=== PATIENT | male | born 1940 | race Caucasian/White ===

== ENCOUNTER 2017-07-09 20:35 | Inpatient (IN) | payer MEDICARE, OTHER ==
[2017-07-09] MEDS ORDERED: Albuterol/Ipratropium NEB.SOL* Albuterol 2.5 MG/Ipratropium 0.5 MG 3 ML ONE (20:38)
[2017-07-09] MEDS ORDERED: methylPREDNISolone 125 MG* 2 ML VIAL ONE (20:40)
[2017-07-09] MEDS ORDERED: Magnesium Sulfate 2 GM IV* 2 GM/50 ML BAG ONE (20:40)
[2017-07-09] MEDS ORDERED: Ondansetron INJ* 2 MG/ML VIAL ONE (20:42)
[2017-07-09 21:02] LABS: PCO2 Arterial 36 mmHg (35-45)
[2017-07-09 21:08] LABS: Hematocrit 41 % (42-52); Hemoglobin 13.9 g/dl (14.0-18.0); Mean Corpuscular HGB Conc 34 g/dl (31-36); Mean Corpuscular Hemoglobin 30 pg (27-31); Mean Corpuscular Volume 88 fL (80-94); Mean Platelet Volume 7 um3 (7.4-10.4); Red Blood Count 4.63 10^6/ul (4.0-5.4); Red Cell Distribution Width 15 % (10.5-15); White Blood Count 16.7 10^3/ul (3.5-10.8)
[2017-07-09] MEDS ORDERED: NS 0.9% 1000 ML* 1,000 ML IV SCH (21:15)
--- NOTE | 2017-07-09 21:16 | RAD ---
HISTORY: Shortness of breath COMPARISONS: February 16, 2016 VIEWS: 1: frontal portable view of the chest at 8:56 PM FINDINGS: LINES AND TUBES: None. CARDIOMEDIASTINAL SILHOUETTE: The cardiomediastinal silhouette is normal for portable technique. PLEURA: The costophrenic angles are sharp. No pleural abnormalities are noted. LUNG PARENCHYMA: There is hyperinflation. There are coarse reticular markings of the lung bases bilaterally ABDOMEN: The upper abdomen is clear. There is no subphrenic gas. BONES AND SOFT TISSUES: No bone or soft tissue abnormalities are noted. IMPRESSION: COPD WITH MILD FIBROTIC CHANGES.
[2017-07-09 21:24] LABS: Albumin 4.2 g/dL (3.2-5.2); BUN/Creatinine Ratio 15.3 (8-20); Calcium 9.1 mg/dL (8.6-10.3); EGFR African American 68.1 (>60); EGFR Non-African American 52.9 (>60); Globulin 2.6 g/dL (2-4); Total Protein 6.8 g/dL (6.4-8.9)
[2017-07-09 21:25] LABS: Troponin I 0.01 ng/mL (<0.04)
[2017-07-09 21:42] LABS: Potassium 3.9 mmol/L (3.5-5.0)
[2017-07-09] MEDS ORDERED: Azithromycin 500 MG IV - ED ONCE IVPB ONE ×2 (22:00)
[2017-07-09] MEDS ORDERED: cefTRIAXone VIAL(*) 1,000 MG in NS 0.9% 50 ML* 50 ML IVPB ONE (22:00)
[2017-07-09] MEDS ORDERED: Ondansetron INJ* 2 MG/ML VIAL IV ONE (22:00)
[2017-07-09] MEDS ORDERED: methylPREDNISolone 125 MG* 2 ML VIAL IV ONE (22:00)
[2017-07-09] MEDS ORDERED: Magnesium Sulfate 2 GM IV* 2 GM/50 ML BAG IV ONE (22:00)
[2017-07-09] MEDS ORDERED: cefTRIAXone VIAL(*) 1,000 MG VIAL ONE (22:17)
--- NOTE | 2017-07-09 23:37 | HP ---
H&P (Free Text) History and Physical: PCP: Bessie Han MD Date/Time: 07/09/2017 2325 CC: SOB HPI: Mr Lemus is a 77YO obese male HX DM2, COPD, HTN, HLD, CAD/stent, & mod/ sev mitral regurgitation presenting with increased upper airway congestion this AM with development of F/C, rigors, & SOB around 1500 worsening to severe prompting ED evaluation. He denies chest pain, palpitations, N/V, abdominal pain , and sick contacts. There has been no change in sputum color. PMedHx CAD/stent mod/sev MR, awaiting valve replacement w/ Dr Larson at [facility] DM2 COPD HTN HLD chronic LBP HX alcoholism Ambulatory Orders Nursing to reconcile. Aspirin EC Low Dose* [Ecotrin EC Low Dose 81 MG*] 81 mg PO QAM 10/03/12 Budesonide/Formote 160/4.5(NF) [Symbicort 160/4.5 (NF)] 2 puff PO BID 10/03/12 Insulin Lispro [Humalog Kwikpen] 20 - 25 unit SUBCUT TID MDD patient uses sliding scale 08/24/13 Rosuvastatin Calcium [Crestor] 10 mg PO QPM 08/24/13 [place]-3 Fatty Acids [Fish Oil Extra Strength 1200 mg] 2,000 mg PO DAILY Centrum Silver 1 tab PO DAILY 12/12/15 Albuterol inh POWDER (NF) [Proair Respiclick] 108 mcg IN Q4HR PRN 01/12/16 Insulin GLARGINE(*) [Lantus(*)] 40 units SUBCUT TID 04/12/17 [place] (Serenoa Repens) [Saw [place] Berries] 1 cap PO DAILY 04/12/17 Magnesium 250 mg PO DAILY 04/13/17 Potassium Chloride [Micro-K] 10 meq PO DAILY 04/13/17 Rivaroxaban TAB(*) [Xarelto 20 mg] 20 mg PO BEDTIME 04/13/17 Nitroglycerin [Nitro-Dur] 0.2 mg TD Q12HR 05/04/17 Amiodarone TAB* [Cordarone Tab*] 200 mg PO BID #60 tab 05/05/17 Atenolol TAB* [Tenormin TAB* 25 MG] 25 mg PO DAILY #60 05/05/17 Torsemide TAB* [Demadex 20 MG*] 10 mg PO DAILY PRN #60 05/05/17 Allergies No Known Allergies Allergy (Verified 10/14/16 17:28) PSurgHx cardiac stent cholecystectomy vasectomy L-spine surgery SocHx: former smoker w/ 40+PYHX, HX alcoholism in remission, no recreational drugs; lives with his ; full code status FamHx: Mother: passed in her 80s of "bleeding problems", HX valve replacement; Father: in his 80s 2nd "blood clots" 2nd warfarin non-adherence; Siblings: CAD/CABG, valve issues ROS: as above, otherwise reviewed and all were negative vitals: Vital Signs Temp 37.9 C 07/09/17 20:50 Pulse 85 07/09/17 22:00 Resp 22 07/09/17 22:00 BP 117/36 07/09/17 22:00 Pulse Ox 99 07/09/17 22:00 Intake & Output 07/08/17 07/09/17 07/09/17 23:59 11:59 23:59 Weight 101.151 kg Constitutional: NAD, normally developed, obese elderly white male HEENM: atraumatic; sclera/conjunctiva: non-icteric/clear; hearing: clinically intact; oropharynx: clear, mucosa moist Neck: soft tissue: non-tender; thyroid: normal Pulmonary: diminished B with scant mid- to end-expiratory wheeze, fair to poor aeration, no accessory muscle use CV: RR/RR, normal S1S2, no carotid bruit, no jugular venous distention, 2+ B DP/ PT, no edema Abdominal: soft, non-distended, non-tender, no rebound/guarding/rigidity, normoactive bowel sounds, no hepatosplenomegaly or masses, no costovertebral angle tenderness Musculoskeletal: general: grossly intact; gait: stable Integumental: normal appearance and texture of exposed skin Psychiatric orientation: AA&O to PPS affect: calm mood: cooperative eye contact: fair content: reliable responses: timely insight: fair to good Testing: Lab Results 07/09/17 07/09/17 07/09/17 Range/Units 20:45 20:45 20:45 WBC 16.7 H (3.5-10.8) 10^3/ul RBC 4.63 (4.0-5.4) 10^6/ul Hgb 13.9 L (14.0-18.0) g/dl Hct 41 L (42-52) % MCV 88 (80-94) fL MCH 30 (27-31) pg MCHC 34 (31-36) g/dl RDW 15 (10.5-15) % Plt Count 228 (150-450) 10^3/ul MPV 7 L (7.4-10.4) um3 Neut % (Auto) 89.3 H (38-83) % Lymph % (Auto) 6.8 L (25-47) % [place] % (Auto) 2.5 (1-9) % Eos % (Auto) 0.7 (0-6) % Baso % (Auto) 0.7 (0-2) % Absolute Neuts (auto) 14.9 H (1.5-7.7) 10^3/ul Absolute Lymphs (auto) 1.1 (1.0-4.8) 10^3/ul Absolute Monos (auto) 0.4 (0-0.8) 10^3/ul Absolute Eos (auto) 0.1 (0-0.6) 10^3/ul Absolute Basos (auto) 0.1 (0-0.2) 10^3/ul Absolute Nucleated RBC 0.01 10^3/ul Nucleated RBC % 0.1 INR (Anticoag Therapy) 1.43 H (0.89-1.11) APTT 32.6 (26.0-36.3) seconds ABG pH 7.44 (7.35-7.45) ABG pCO2 36 (35-45) mmHg ABG pO2 154 H (80-100) mmHg ABG HCO3 25.4 (19-31) mmol/L ABG O2 Saturation 98.1 H (95-98) % ABG Base Excess 0.7 (-2.0-2.0) Sodium (133-145) mmol/L Potassium (3.5-5.0) mmol/L Chloride (101-111) mmol/L Carbon Dioxide (22-32) mmol/L Anion Gap (2-11) mmol/L BUN (6-24) mg/dL Creatinine (0.67-1.17) mg/dL Est GFR ( Amer) (>60) Est GFR (Non-Af Amer) (>60) BUN/Creatinine Ratio (8-20) Glucose (70-100) mg/dL Calcium (8.6-10.3) mg/dL Total Bilirubin (0.2-1.0) mg/dL AST (13-39) U/L ALT (7-52) U/L Alkaline Phosphatase (34-104) U/L Troponin I (<0.04) ng/mL B-Natriuretic Peptide ( - 100) pg/mL Total Protein (6.4-8.9) g/dL Albumin (3.2-5.2) g/dL Globulin (2-4) g/dL Albumin/Globulin Ratio (1-3) 07/09/17 07/09/17 Range/Units 20:45 20:45 WBC (3.5-10.8) 10^3/ul RBC (4.0-5.4) 10^6/ul Hgb (14.0-18.0) g/dl Hct (42-52) % MCV (80-94) fL MCH (27-31) pg MCHC (31-36) g/dl RDW (10.5-15) % Plt Count (150-450) 10^3/ul MPV (7.4-10.4) um3 Neut % (Auto) (38-83) % Lymph % (Auto) (25-47) % [place] % (Auto) (1-9) % Eos % (Auto) (0-6) % Baso % (Auto) (0-2) % Absolute Neuts (auto) (1.5-7.7) 10^3/ul Absolute Lymphs (auto) (1.0-4.8) 10^3/ul Absolute Monos (auto) (0-0.8) 10^3/ul Absolute Eos (auto) (0-0.6) 10^3/ul Absolute Basos (auto) (0-0.2) 10^3/ul Absolute Nucleated RBC 10^3/ul Nucleated RBC % INR (Anticoag Therapy) (0.89-1.11) APTT (26.0-36.3) seconds ABG pH (7.35-7.45) ABG pCO2 (35-45) mmHg ABG pO2 (80-100) mmHg ABG HCO3 (19-31) mmol/L ABG O2 Saturation (95-98) % ABG Base Excess (-2.0-2.0) Sodium 139 (133-145) mmol/L Potassium 3.9 (3.5-5.0) mmol/L Chloride 102 (101-111) mmol/L Carbon Dioxide 29 (22-32) mmol/L Anion Gap 8 (2-11) mmol/L BUN 20 (6-24) mg/dL Creatinine 1.31 H (0.67-1.17) mg/dL Est GFR ( Amer) 68.1 (>60) Est GFR (Non-Af Amer) 52.9 (>60) BUN/Creatinine Ratio 15.3 (8-20) Glucose 95 (70-100) mg/dL Calcium 9.1 (8.6-10.3) mg/dL Total Bilirubin 1.00 (0.2-1.0) mg/dL AST 22 (13-39) U/L ALT 24 (7-52) U/L Alkaline Phosphatase 48 (34-104) U/L Troponin I 0.01 (<0.04) ng/mL B-Natriuretic Peptide 92 ( - 100) pg/mL Total Protein 6.8 (6.4-8.9) g/dL Albumin 4.2 (3.2-5.2) g/dL Globulin 2.6 (2-4) g/dL Albumin/Globulin Ratio 1.6 (1-3) ECG, personally reviewed: AFIB rate 86, diffuse T-wave inversions; similar to comparison 05/05/2017 CXR, personally reviewed: bibasilar infiltrate vs atelectasis ECHO (05/05/2017): Conclusions: The left ventricular chamber size is normal.Suboptimal evaluation of the LV due to imaging restrictions. Overall EF probably 45-50%, closer to 50%, with a small focal area of hypokinesis at the base of the inferior wall. The aortic valve leaflets are mildly thickened. There is a trace of aortic regurgitation. There is moderate to severe mitral regurgitation. There are multiple jets including a central jet and a posterior eccentric jet. Pulmonary vein flow reversal is present in the LUPV. There is mild dilatation of the ascending aorta. There is mild dilatation of the aortic root. Impression: 77M presenting with bibasilar pneumonia & COPD exacerbation DIAGNOSIS & PLAN Primary bibasilar pneumonia : IV ceftriaxone & azithromycin : IVFs : guaifenesin : supplemental oxygen : blood & sputum CXs : Legionella & S pneumo urine antigens : check rapid influenza : supportive care COPD exacerbation : albuterol nebs : mometasone/formoterol : tiotropium : methylprednisolone IV : incentive spirometry Secondary CAD/stent : review meds once reconciled DM2 : insulin carb ratio diet : basal/bolus/correctional insulin : update A1c HTN : review meds once reconciled HLD : review meds once reconciled chronic LBP : review meds once reconciled Admission Rational: inpatient for pneumonia & COPD exacerbation not anticipated to be adequately improved w/i 48h to allow for discharge DVTp: rivaroxaban once reconciled Code Status: full HCP:
[2017-07-10 02:28] LABS: Urine Bilirubin Negative (Negative); Urine Glucose Negative (Negative); Urine Nitrite Negative (Negative)
[2017-07-10] MEDS: NS 0.9% 1000 ML* 1,000 ML IV SCH ×2 (05:34→16:31)
--- NOTE | 2017-07-10 06:01 | ED ---
Tyra Jimenez Rebecca, scribed for Kevin Benz on 07/09/17 at 2257 . Shortness of Breath - HPI Summary HPI Summary: Pt is a 77 y/o M BIBA who presents to ED c/o SOB characterized as dyspnea at rest. Sx began today at approximately 1700. En route to [facility], pt was given 1 NTG and O2. EMS tried administering ASA, but the pt was unable to chew. Sx aggravated and alleviated by nothing. Additionally c/o vomiting. En route, BG was 113 and IV access was attempted, but could not be obtained. PMHx COPD, A Fib , DM. Does not use O2 at home, though he does have a nebulizer. - History of Current Complaint Chief Complaint: EDShortnessOfBreath Hx Obtained From: Patient, EMS Onset/Duration: Lasting Hours, Still Present Dyspnea At: Rest Aggrevating Factors: Nothing Alleviating Factors: Nothing - Allergy/Home Medications Allergies/Adverse Reactions: Allergies Allergy/AdvReac Type Severity Reaction Status Date / Time No Known Allergies Allergy Verified 10/14/16 17:28 PMH/Surg Hx/FS Hx/Imm Hx Endocrine/Hematology History: Reports: Hx Diabetes - TYPE 2 Denies: Hx Anticoagulant Therapy, Hx Thyroid Disease Cardiovascular History: Reports: Hx Angina, Hx Coronary Artery Disease, Hx Hypercholesterolemia, Hx Hypertension - ON MEDS, Hx Valvular Heart Disease Denies: Hx Myocardial Infarction, Hx Pacemaker/ICD Respiratory History: Reports: Hx Chronic Obstructive Pulmonary Disease (COPD), Hx Pneumonia, Other Respiratory Problems/Disorders - COPD Denies: Hx Asthma GI History: Reports: Hx Hiatal Hernia, Other GI Disorders - fatty liver History: Denies: Hx Renal Disease Musculoskeletal History: Reports: Hx Arthritis Sensory History: Reports: Hx Contacts or Glasses Denies: Hx Hearing Aid Opthamlomology History: Reports: Hx Contacts or Glasses Neurological History: Denies: Hx Dementia, Hx Seizures Psychiatric History: Denies: Hx Panic Disorder, Hx Substance Abuse - Surgical History Surgery Procedure, Year, and Place: 2006 HERNIATED DISC RUPTURE LSP SURGERY. 1991 BROKEN LEFT SHOULDER REPAIRED HARDWARE REMOVED. 1994 GALLBLADDER. 1998 HEART STENT [place] STENT OK FOR 1.5T. 2014 LEFT KNEE REPLACEMENT Hx Anesthesia Reactions: No Infectious Disease History: No Infectious Disease History: Denies: Hx Hepatitis, Hx Human Immunodeficiency Virus (HIV), History Other Infectious Disease, Traveled Outside the [place] in Last 30 Days - Family History Known Family History: Positive: Cardiac Disease, Diabetes, Other - NEGATIVE FOR CANCER - Social History Alcohol Use: Rare Hx Substance Use: No Substance Use Type: Reports: None Hx Tobacco Use: No Smoking Status (MU): Former Smoker Type: Cigarettes Amount Used/How Often: 2 PACK/DAY Length of Time of Smoking/Using Tobacco: 45 Have You Smoked in the Last Year: No Review of Systems Positive: Shortness Of Breath Positive: Vomiting All Other Systems Reviewed And Are Negative: Yes Physical Exam - Summary Physical Exam Summary: Appearance: Well appearing, no pain distress Skin: warm, dry, reflects adequate perfusion Head/face: normal Eyes: EOMI, GRISELDA ENT: normal Neck: supple, nontender Respiratory: Bilateral decreased breath sounds with poor air entry and occasional wheezing Cardiovascular: Tachycardic, pulses symmetrical Abdomen: nontender, soft Bowel: present Musculoskeletal: normal, strength/ROM intact Neuro: normal, sensory motor intact, A&Ox3 Triage Information Reviewed: Yes Vital Signs On Initial Exam: Initial Vitals Temp Pulse Resp BP Pulse Ox 100.2 F 85 21 135/39 97 07/09/17 20:50 07/09/17 20:50 07/09/17 20:50 07/09/17 20:50 07/09/17 20:50 Vital Signs Reviewed: Yes - [place] Coma Scale Coma Scale Total: 15 Diagnostics - Vital Signs Vital Signs Temp Pulse Resp BP Pulse Ox 07/09/17 20:50 100.2 F 85 21 135/39 97 - Laboratory Result Diagrams: 07/09/17 20:45 07/09/17 20:45 Lab Statement: Any lab studies that have been ordered have been reviewed, and results considered in the medical decision making process. - Radiology CXR Xray Interpretation: Positive (See Comments) - COPD WITH MILD FIBROTIC CHANGES. ED physician reviewed radiology report and agrees. Radiology Interpretation Completed By: Radiologist - EKG 2108 Cardiac Rate: NL - 86 bpm EKG Rhythm: Atrial Fibrillation EKG Interpretation: A Fib with RBBB Course/Dx - Course Assessment/Plan: Pt is a 77 y/o M BIBA who presents to ED c/o SOB characterized as dyspnea at rest since today at approximately 1700. En route to [facility] ED, pt was given 1 NTG and O2. Additionally c/o vomiting. En route, BG was 113. PMHx COPD, A Fib, DM. Does not use O2 at home, though he does have a nebulizer. UA negative for UTI. Troponin of 0.01. CXR reveals COPD with mild fibrotic changes. EKG is A Fib with RBBB. IN the ED course, pt received Zofran, Zithromax , magnesium sulfate, Rocephin and Solu-Medrol. Discussed care of pt with Dr. Godoy who states that the EKG is RBBB with no acute changes and is not a STEMI. Discussed care of pt with Dr. Rosario at 2205 who accepts pt for admission. Pt will be admitted with Dx of COPD exacerbation, hypoxia, respiratory failure and PNA. He understands and agrees. 30 minutes of CC time. - Diagnoses Provider Diagnoses: COPD exacerbation, PNA (pneumonia), Respiratory failure, Hypoxia - Physician Notifications Discussed Care of Patient With: Myke Godoy Time Discussed With Above Provider: 20:40 Instructed by Provider To: Other - The EKG is RBBB with no acute changes and is not a STEMI. Discussed care of pt with Dr. Rosario at 2205 who accepts pt for admission. - Critical Care Time Critical Care Time: 30-74 min - 30 mintues Discharge - Discharge Plan Condition: Stable Disposition: ADMITTED TO [facility] The documentation as recorded by the Tyra chavez Rebecca accurately reflects the service I personally performed and the decisions made by , Kevin Benz.
[2017-07-10] MEDS: Albuterol 2.5 MG/3 ML NEB.SOL* (0.083%) INH SCH ×3 (06:25→20:56)
[2017-07-10] MEDS ORDERED: guaiFENesin ER TAB 600 MG ONE (06:52)
[2017-07-10] MEDS: guaiFENesin ER TAB 600 MG PO SCH ×3 (06:53→21:13)
[2017-07-10 07:07] LABS: Hematocrit 39 % (42-52); Hemoglobin 12.9 g/dl (14.0-18.0); Mean Corpuscular HGB Conc 33 g/dl (31-36); Mean Corpuscular Hemoglobin 29 pg (27-31); Mean Corpuscular Volume 87 fL (80-94); Mean Platelet Volume 7 um3 (7.4-10.4); Red Blood Count 4.43 10^6/ul (4.0-5.4); Red Cell Distribution Width 15 % (10.5-15); White Blood Count 24.6 10^3/ul (3.5-10.8)
[2017-07-10 07:08] LABS: Add Diff/Slide Review? Slide Review Added; Comments Flag Yes
[2017-07-10 07:22] LABS: BUN/Creatinine Ratio 15.4 (8-20); Calcium 8.5 mg/dL (8.6-10.3); EGFR African American 65.2 (>60); EGFR Non-African American 50.7 (>60); Potassium 4.3 mmol/L (3.5-5.0)
[2017-07-10 07:58] LABS: Immature Granulocytes 14 % (0-9); Neutrophil % 81 % (38-83); RBC Morphology Normal (Normal)
[2017-07-10] MEDS ORDERED: Aspirin EC Low Dose* 81 MG TAB.EC PO SCH (09:00)
[2017-07-10] MEDS ORDERED: Spiriva Inhaler DEVICE* 1 EACH DEVICE INH ONE (09:00)
[2017-07-10] MEDS ORDERED: Tiotropium CAP.INH* CAP.INH/18 MCG (USE ORDER SET !) INH SCH (09:00)
[2017-07-10] MEDS: Mometasone/Formoter 200/5 MDI INH SCH ×2 (10:12→21:15)
[2017-07-10] MEDS: Atenolol TAB* 25 MG PO SCH (10:15)
[2017-07-10] MEDS: Insulin LISPRO* 1 UNITS UNIT SUBCUT SCH ×7 (10:15→21:26)
[2017-07-10] MEDS: Torsemide TAB* 20 MG PO SCH (12:39)
--- NOTE | 2017-07-10 14:45 | PN ---
Subjective Date of Service: 07/10/17 Interval History: Patient states he feels much better since he came into the hospital. Patient states he has decreased SOB, patient states that his chest tightness has gone away. Patient states he has had one episode of hemoptysis. Patient denies any chest pain, Nausea, Vomiting, Diarrhea, Constipation, Changes in urine, or other new pains. Patient is on 3.5L O2 and states he was able to walk in the [place] briefly without his oxygen. Family History: Unchanged from Admission Social History: Unchanged from Admission Past Medical History: Unchanged from Admission Objective Vital Signs 07/10/17 07/10/17 07/10/17 01:00 01:30 02:00 Temperature Pulse Rate 94 98 102 Respiratory 20 23 21 Rate Blood Pressure 119/56 123/50 119/60 (mmHg) O2 Sat by Pulse 96 96 94 Oximetry 07/10/17 07/10/17 07/10/17 02:30 03:00 03:21 Temperature 100.1 F Pulse Rate 94 92 Respiratory 23 22 Rate Blood Pressure 115/56 126/51 (mmHg) O2 Sat by Pulse 94 94 Oximetry 07/10/17 07/10/17 07/10/17 03:30 03:51 06:26 Temperature 99.2 F Pulse Rate 100 93 Respiratory 20 20 20 Rate Blood Pressure 134/55 (mmHg) O2 Sat by Pulse 93 95 Oximetry 07/10/17 07/10/17 07/10/17 07:56 11:19 13:40 Temperature 98.4 F 98.0 F Pulse Rate 84 84 84 Respiratory 16 18 16 Rate Blood Pressure 127/54 116/59 (mmHg) O2 Sat by Pulse 94 96 97 Oximetry Oxygen Devices in Use Now: Nasal Cannula Appearance: Patient is a 77yo male who appears stated age and is sitting comfortably in the bed in [facility]. Eyes: No Scleral Icterus, PERRLA Ears/Nose/Mouth/Throat: NL Teeth, Lips, Gums, Mucous Membranes Moist, - - Slight erythema of the pharynx. Neck: NL Appearance and Movements; NL JVP, Trachea Midline Respiratory: Symmetrical Chest Expansion and Respiratory Effort, - - Decreased lung sounds, slight wheezes and rhonchi heard in the bilateral lung bases. Cardiovascular: - - Irregularly irregular rhythm. Grade 2/6 systolic murmur heard best the the apex. Radial, PT, DP pulses 2+ B/L. 1+ pitting edema B/L. Abdominal: NL Sounds; No Tenderness; No Distention, No Hepatosplenomegaly, - - Significant diastasis recti. Lymphatic: No Cervical Adenopathy Skin: No Rash or Ulcers, No Nodules or Sclerosis Neurological: Alert and Oriented x 3 Result Diagrams: 07/10/17 06:44 07/10/17 06:44 Additional Lab and Data: 07/09/17 07/09/17 07/09/17 20:45 20:45 20:45 WBC 16.7 H RBC 4.63 Hgb 13.9 L Hct 41 L MCV 88 MCH 30 MCHC 34 RDW 15 Plt Count 228 MPV 7 L Immature Gran % (Auto) Neut % (Auto) 89.3 H Lymph % (Auto) 6.8 L [place] % (Auto) 2.5 Eos % (Auto) 0.7 Baso % (Auto) 0.7 Absolute Neuts (auto) 14.9 H Absolute Lymphs (auto) 1.1 Absolute Monos (auto) 0.4 Absolute Eos (auto) 0.1 Absolute Basos (auto) 0.1 Absolute Nucleated RBC 0.01 Neutrophils % Band Neutrophils % Lymphocytes % Reactive Lymphs % Monocytes % Nucleated RBC % 0.1 Normal RBC Morphology INR (Anticoag Therapy) 1.43 H APTT 32.6 ABG pH 7.44 ABG pCO2 36 ABG pO2 154 H ABG HCO3 25.4 ABG O2 Saturation 98.1 H ABG Base Excess 0.7 Sodium Potassium Chloride Carbon Dioxide Anion Gap BUN Creatinine Est GFR ( Amer) Est GFR (Non-Af Amer) BUN/Creatinine Ratio Glucose POC Glucose (mg/dL) Hemoglobin A1c Calcium Total Bilirubin AST ALT Alkaline Phosphatase Troponin I B-Natriuretic Peptide Total Protein Albumin Globulin Albumin/Globulin Ratio Urine Color Urine Appearance Urine pH Ur Specific [place] Urine Protein Urine Ketones Urine Blood Urine Nitrate Urine Bilirubin Urine Urobilinogen Ur Leukocyte Esterase Urine Glucose Influenza A (Rapid) Influenza B (Rapid) 07/09/17 07/09/17 07/09/17 20:45 20:45 20:45 WBC RBC Hgb Hct MCV MCH MCHC RDW Plt Count MPV Immature Gran % (Auto) Neut % (Auto) Lymph % (Auto) [place] % (Auto) Eos % (Auto) Baso % (Auto) Absolute Neuts (auto) Absolute Lymphs (auto) Absolute Monos (auto) Absolute Eos (auto) Absolute Basos (auto) Absolute Nucleated RBC Neutrophils % Band Neutrophils % Lymphocytes % Reactive Lymphs % Monocytes % Nucleated RBC % Normal RBC Morphology INR (Anticoag Therapy) APTT ABG pH ABG pCO2 ABG pO2 ABG HCO3 ABG O2 Saturation ABG Base Excess Sodium 139 Potassium 3.9 Chloride 102 Carbon Dioxide 29 Anion Gap 8 BUN 20 Creatinine 1.31 H Est GFR ( Amer) 68.1 Est GFR (Non-Af Amer) 52.9 BUN/Creatinine Ratio 15.3 Glucose 95 POC Glucose (mg/dL) Hemoglobin A1c 5.0 Calcium 9.1 Total Bilirubin 1.00 AST 22 ALT 24 Alkaline Phosphatase 48 Troponin I 0.01 B-Natriuretic Peptide 92 Total Protein 6.8 Albumin 4.2 Globulin 2.6 Albumin/Globulin Ratio 1.6 Urine Color Urine Appearance Urine pH Ur Specific [place] Urine Protein Urine Ketones Urine Blood Urine Nitrate Urine Bilirubin Urine Urobilinogen Ur Leukocyte Esterase Urine Glucose Influenza A (Rapid) Influenza B (Rapid) 07/10/17 07/10/17 07/10/17 01:44 02:15 06:44 WBC RBC Hgb Hct MCV MCH MCHC RDW Plt Count MPV Immature Gran % (Auto) Neut % (Auto) Lymph % (Auto) [place] % (Auto) Eos % (Auto) Baso % (Auto) Absolute Neuts (auto) Absolute Lymphs (auto) Absolute Monos (auto) Absolute Eos (auto) Absolute Basos (auto) Absolute Nucleated RBC Neutrophils % Band Neutrophils % Lymphocytes % Reactive Lymphs % Monocytes % Nucleated RBC % Normal RBC Morphology INR (Anticoag Therapy) APTT ABG pH ABG pCO2 ABG pO2 ABG HCO3 ABG O2 Saturation ABG Base Excess Sodium 136 Potassium 4.3 Chloride 105 Carbon Dioxide 24 Anion Gap 7 BUN 21 Creatinine 1.36 H Est GFR ( Amer) 65.2 Est GFR (Non-Af Amer) 50.7 BUN/Creatinine Ratio 15.4 Glucose 169 H POC Glucose (mg/dL) Hemoglobin A1c Calcium 8.5 L Total Bilirubin AST ALT Alkaline Phosphatase Troponin I B-Natriuretic Peptide Total Protein Albumin Globulin Albumin/Globulin Ratio Urine Color Yellow Urine Appearance Clear Urine pH 5.0 Ur Specific [place] 1.019 Urine Protein Negative Urine Ketones Negative Urine Blood Negative Urine Nitrate Negative Urine Bilirubin Negative Urine Urobilinogen Negative Ur Leukocyte Esterase Negative Urine Glucose Negative Influenza A (Rapid) Negative Influenza B (Rapid) Negative 07/10/17 07/10/17 07/10/17 06:44 08:43 11:40 WBC 24.6 H RBC 4.43 Hgb 12.9 L Hct 39 L MCV 87 MCH 29 MCHC 33 RDW 15 Plt Count 183 MPV 7 L Immature Gran % (Auto) 14 H Neut % (Auto) 95.4 H Lymph % (Auto) 2.0 L [place] % (Auto) 2.5 Eos % (Auto) 0 Baso % (Auto) 0.1 Absolute Neuts (auto) 23.4 H Absolute Lymphs (auto) 0.5 L Absolute Monos (auto) 0.6 Absolute Eos (auto) 0 Absolute Basos (auto) 0 Absolute Nucleated RBC 0.01 Neutrophils % 81 Band Neutrophils % 14 H Lymphocytes % 2 L Reactive Lymphs % Not Reportable Monocytes % 3 Nucleated RBC % 0 Normal RBC Morphology Normal INR (Anticoag Therapy) APTT ABG pH ABG pCO2 ABG pO2 ABG HCO3 ABG O2 Saturation ABG Base Excess Sodium Potassium Chloride Carbon Dioxide Anion Gap BUN Creatinine Est GFR ( Amer) Est GFR (Non-Af Amer) BUN/Creatinine Ratio Glucose POC Glucose (mg/dL) 219 H 204 H Hemoglobin A1c Calcium Total Bilirubin AST ALT Alkaline Phosphatase Troponin I B-Natriuretic Peptide Total Protein Albumin Globulin Albumin/Globulin Ratio Urine Color Urine Appearance Urine pH Ur Specific [place] Urine Protein Urine Ketones Urine Blood Urine Nitrate Urine Bilirubin Urine Urobilinogen Ur Leukocyte Esterase Urine Glucose Influenza A (Rapid) Influenza B (Rapid) Microbiology and Other Data: Microbiology 07/10/17 03:43 Gram Stain - Final Sputum 07/10/17 02:15 Legionella Urinary Antigen - Final Urine Negative Legionella 07/10/17 02:15 Streptococcus pneumoniae Ag Screen - Final Urine Negative S. 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 Patient is admitted for ABX, Steroids, and supportive care. - Patient Problems (1) Pneumonia Current Visit: No Status: Acute Code(s): J18.9 - PNEUMONIA, UNSPECIFIED ORGANISM SNOMED Code(s): 907243768 Comment: Bilateral LL pneumonia. Responding to Ceftriaxone and Azithromycin IV. Wean O2 as tolerated. Continue with mucinex, incentive spirometry and IVF. Sputum and blood samples obtained and pending culture. (2) COPD (chronic obstructive pulmonary disease) Current Visit: Yes Status: Acute Code(s): J44.9 - CHRONIC OBSTRUCTIVE PULMONARY DISEASE, UNSPECIFIED SNOMED Code(s): 99722792 Comment: Current exacerbation. Started on Solu-Medrol, Antibiotics, Duonebs scheduled while awake and home dulera. Patient is feeling much better with improved lung exam. Will attempt to change to PO steroids tomorrow. (3) Diabetes Current Visit: No Status: Acute Code(s): E11.9 - TYPE 2 DIABETES MELLITUS WITHOUT COMPLICATIONS SNOMED Code(s): 15760933 Comment: Started on 21u Lantus as well as carb matched insulin and SSI. Blood glucose monitoring AC. Will adjust Lantus up as needed. Patient takes 40u lantus at home. (4) Atrial fibrillation Current Visit: No Status: Acute Code(s): I48.91 - UNSPECIFIED ATRIAL FIBRILLATION SNOMED Code(s): 20518478 Comment: Rate controlled with Atenolol, Anticoagulated with Xarelto. (5) HTN (hypertension) Current Visit: No Status: Acute Code(s): I10 - ESSENTIAL (PRIMARY) HYPERTENSION SNOMED Code(s): 83035845 Comment: Continue Atenolol and Torsemide. Patient normotensive. (6) Hyperlipidemia Current Visit: No Status: Acute Code(s): E78.5 - HYPERLIPIDEMIA, UNSPECIFIED SNOMED Code(s): 09967589 Comment: Continue statin. (7) DVT prophylaxis Current Visit: Yes Status: Acute Code(s): LON4889 - SNOMED Code(s): 724254171 Comment: Xarelto Status and Disposition: Patient is admitted inpatient. Will discharge when medially stable, predict 2- 3days.
[2017-07-10] MEDS: Atorvastatin* 20 MG TAB PO SCH (16:31)
[2017-07-10] MEDS ORDERED: Insulin GLARGINE(*) 1 UNITS UNIT SUBCUT SCH (21:00)
[2017-07-10] MEDS: cefTRIAXone VIAL(*) 1,000 MG in NS 0.9% 50 ML* 50 ML IVPB SCH (21:10)
[2017-07-10] MEDS: Rivaroxaban TAB(*) 20 MG TAB PO SCH (21:15)
[2017-07-10] MEDS: Azithromycin IV(*) 500 MG in NS 0.9% 250 ML* 250 ML IVPB SCH (23:41)
[2017-07-11] MEDS: Albuterol 2.5 MG/3 ML NEB.SOL* (0.083%) INH SCH ×4 (01:30→20:08)
[2017-07-11 05:56] LABS: Hematocrit 34 % (42-52); Hemoglobin 11.8 g/dl (14.0-18.0); Mean Corpuscular HGB Conc 34 g/dl (31-36); Mean Corpuscular Hemoglobin 30 pg (27-31); Mean Corpuscular Volume 88 fL (80-94); Mean Platelet Volume 8 um3 (7.4-10.4); Red Cell Distribution Width 15 % (10.5-15); White Blood Count 20.1 10^3/ul (3.5-10.8)
[2017-07-11 06:10] LABS: BUN/Creatinine Ratio 21.4 (8-20); Calcium 8.5 mg/dL (8.6-10.3); EGFR African American 71.2 (>60); EGFR Non-African American 55.4 (>60); Potassium 4.1 mmol/L (3.5-5.0)
[2017-07-11] MEDS ORDERED: methylPREDNISolone SOD 40 MG* 1 ML VIAL IV SCH (08:00)
[2017-07-11] MEDS: Mometasone/Formoter 200/5 MDI INH SCH ×2 (08:04→20:09)
[2017-07-11] MEDS: Atenolol TAB* 25 MG PO SCH (08:30)
[2017-07-11] MEDS: guaiFENesin ER TAB 600 MG PO SCH ×2 (08:31→21:34)
[2017-07-11] MEDS: Torsemide TAB* 20 MG PO SCH (08:31)
[2017-07-11] MEDS: Insulin LISPRO* 1 UNITS UNIT SUBCUT SCH ×7 (09:16→22:25)
--- NOTE | 2017-07-11 13:10 | PN ---
Subjective Date of Service: 07/11/17 Interval History: Patient is feeling much better overnight. Patient denies any increased SOB, CP, N/V, F/C, abdominal pain, diarrhea, or constipation. Patient continues to produce grossly bloody sputum. Patient states that the duoneb treatment and the Demedex both helped with the restricted feeling in his chest. Patient had an episode witnessed by nursing staff in which he "made a noise that was a combination of a hiccup and a cough" and then hung his head momentarily and made twitching movements with his arms. This lasted only a moment. Patient states that he has these episodes infrequently, but that he has had 12 over the past couple of years. They only occur when he is eating and he can usually avoid them if he eats slowly. Patient states that he has been told it is related to his hiatal hernia and that he does not want to pursue treatment for it. Family History: Unchanged from Admission Social History: Unchanged from Admission Past Medical History: Unchanged from Admission Objective Vital Signs 07/10/17 07/10/17 07/10/17 13:40 15:56 20:00 Temperature 98.2 F Pulse Rate 84 72 Respiratory 16 16 20 Rate Blood Pressure 119/49 (mmHg) O2 Sat by Pulse 97 97 Oximetry 07/10/17 07/10/17 07/11/17 20:58 21:31 00:14 Temperature 97.7 F 97.8 F Pulse Rate 87 80 80 Respiratory 18 22 18 Rate Blood Pressure 109/52 104/53 (mmHg) O2 Sat by Pulse 97 94 95 Oximetry 07/11/17 07/11/17 07/11/17 04:07 07:30 07:58 Temperature 97.9 F 97.5 F Pulse Rate 77 81 Respiratory 18 18 18 Rate Blood Pressure 114/64 122/64 (mmHg) O2 Sat by Pulse 97 96 Oximetry 07/11/17 07/11/17 08:06 11:08 Temperature 97.7 F Pulse Rate 78 83 Respiratory 14 16 Rate Blood Pressure 95/72 (mmHg) O2 Sat by Pulse 96 92 Oximetry Oxygen Devices in Use Now: None Appearance: Patient is a 77yo male who appears stated age and is sitting comfortably in the bed in [facility]. Eyes: No Scleral Icterus, PERRLA Ears/Nose/Mouth/Throat: NL Teeth, Lips, Gums, Clear Oropharnyx, Mucous Membranes Moist Neck: NL Appearance and Movements; NL JVP, Trachea Midline Respiratory: Symmetrical Chest Expansion and Respiratory Effort, - - Mildly decreased lung sounds in the bilateral lower lobes. Slight expiratory wheezes. No other adventitious lung sounds. Improved since yesterday. Cardiovascular: - - Irregularly irregular rhythm with rate 60-80 Abdominal: No Hepatosplenomegaly, - - Slightly distended, decreased from yesterday. Hyperactive BS, no tenderness, no abdominal bruits. Lymphatic: No Cervical Adenopathy Extremities: - - No calf tenderness. Skin: No Rash or Ulcers Neurological: Alert and Oriented x 3, NL Gait Result Diagrams: 07/11/17 05:13 07/11/17 05:13 Additional Lab and Data: 07/09/17 07/09/17 07/09/17 20:45 20:45 20:45 WBC 16.7 H RBC 4.63 Hgb 13.9 L Hct 41 L MCV 88 MCH 30 MCHC 34 RDW 15 Plt Count 228 MPV 7 L Immature Gran % (Auto) Neut % (Auto) 89.3 H Lymph % (Auto) 6.8 L [place] % (Auto) 2.5 Eos % (Auto) 0.7 Baso % (Auto) 0.7 Absolute Neuts (auto) 14.9 H Absolute Lymphs (auto) 1.1 Absolute Monos (auto) 0.4 Absolute Eos (auto) 0.1 Absolute Basos (auto) 0.1 Absolute Nucleated RBC 0.01 Neutrophils % Band Neutrophils % Lymphocytes % Reactive Lymphs % Monocytes % Nucleated RBC % 0.1 Normal RBC Morphology INR (Anticoag Therapy) 1.43 H APTT 32.6 ABG pH 7.44 ABG pCO2 36 ABG pO2 154 H ABG HCO3 25.4 ABG O2 Saturation 98.1 H ABG Base Excess 0.7 Sodium Potassium Chloride Carbon Dioxide Anion Gap BUN Creatinine Est GFR ( Amer) Est GFR (Non-Af Amer) BUN/Creatinine Ratio Glucose POC Glucose (mg/dL) Hemoglobin A1c Calcium Total Bilirubin AST ALT Alkaline Phosphatase Troponin I B-Natriuretic Peptide Total Protein Albumin Globulin Albumin/Globulin Ratio Urine Color Urine Appearance Urine pH Ur Specific [place] Urine Protein Urine Ketones Urine Blood Urine Nitrate Urine Bilirubin Urine Urobilinogen Ur Leukocyte Esterase Urine Glucose Influenza A (Rapid) Influenza B (Rapid) 07/09/17 07/09/17 07/09/17 20:45 20:45 20:45 WBC RBC Hgb Hct MCV MCH MCHC RDW Plt Count MPV Immature Gran % (Auto) Neut % (Auto) Lymph % (Auto) [place] % (Auto) Eos % (Auto) Baso % (Auto) Absolute Neuts (auto) Absolute Lymphs (auto) Absolute Monos (auto) Absolute Eos (auto) Absolute Basos (auto) Absolute Nucleated RBC Neutrophils % Band Neutrophils % Lymphocytes % Reactive Lymphs % Monocytes % Nucleated RBC % Normal RBC Morphology INR (Anticoag Therapy) APTT ABG pH ABG pCO2 ABG pO2 ABG HCO3 ABG O2 Saturation ABG Base Excess Sodium 139 Potassium 3.9 Chloride 102 Carbon Dioxide 29 Anion Gap 8 BUN 20 Creatinine 1.31 H Est GFR ( Amer) 68.1 Est GFR (Non-Af Amer) 52.9 BUN/Creatinine Ratio 15.3 Glucose 95 POC Glucose (mg/dL) Hemoglobin A1c 5.0 Calcium 9.1 Total Bilirubin 1.00 AST 22 ALT 24 Alkaline Phosphatase 48 Troponin I 0.01 B-Natriuretic Peptide 92 Total Protein 6.8 Albumin 4.2 Globulin 2.6 Albumin/Globulin Ratio 1.6 Urine Color Urine Appearance Urine pH Ur Specific [place] Urine Protein Urine Ketones Urine Blood Urine Nitrate Urine Bilirubin Urine Urobilinogen Ur Leukocyte Esterase Urine Glucose Influenza A (Rapid) Influenza B (Rapid) 07/10/17 07/10/17 07/10/17 01:44 02:15 06:44 WBC RBC Hgb Hct MCV MCH MCHC RDW Plt Count MPV Immature Gran % (Auto) Neut % (Auto) Lymph % (Auto) [place] % (Auto) Eos % (Auto) Baso % (Auto) Absolute Neuts (auto) Absolute Lymphs (auto) Absolute Monos (auto) Absolute Eos (auto) Absolute Basos (auto) Absolute Nucleated RBC Neutrophils % Band Neutrophils % Lymphocytes % Reactive Lymphs % Monocytes % Nucleated RBC % Normal RBC Morphology INR (Anticoag Therapy) APTT ABG pH ABG pCO2 ABG pO2 ABG HCO3 ABG O2 Saturation ABG Base Excess Sodium 136 Potassium 4.3 Chloride 105 Carbon Dioxide 24 Anion Gap 7 BUN 21 Creatinine 1.36 H Est GFR ( Amer) 65.2 Est GFR (Non-Af Amer) 50.7 BUN/Creatinine Ratio 15.4 Glucose 169 H POC Glucose (mg/dL) Hemoglobin A1c Calcium 8.5 L Total Bilirubin AST ALT Alkaline Phosphatase Troponin I B-Natriuretic Peptide Total Protein Albumin Globulin Albumin/Globulin Ratio Urine Color Yellow Urine Appearance Clear Urine pH 5.0 Ur Specific [place] 1.019 Urine Protein Negative Urine Ketones Negative Urine Blood Negative Urine Nitrate Negative Urine Bilirubin Negative Urine Urobilinogen Negative Ur Leukocyte Esterase Negative Urine Glucose Negative Influenza A (Rapid) Negative Influenza B (Rapid) Negative 07/10/17 07/10/17 07/10/17 06:44 08:43 11:40 WBC 24.6 H RBC 4.43 Hgb 12.9 L Hct 39 L MCV 87 MCH 29 MCHC 33 RDW 15 Plt Count 183 MPV 7 L Immature Gran % (Auto) 14 H Neut % (Auto) 95.4 H Lymph % (Auto) 2.0 L [place] % (Auto) 2.5 Eos % (Auto) 0 Baso % (Auto) 0.1 Absolute Neuts (auto) 23.4 H Absolute Lymphs (auto) 0.5 L Absolute Monos (auto) 0.6 Absolute Eos (auto) 0 Absolute Basos (auto) 0 Absolute Nucleated RBC 0.01 Neutrophils % 81 Band Neutrophils % 14 H Lymphocytes % 2 L Reactive Lymphs % Not Reportable Monocytes % 3 Nucleated RBC % 0 Normal RBC Morphology Normal INR (Anticoag Therapy) APTT ABG pH ABG pCO2 ABG pO2 ABG HCO3 ABG O2 Saturation ABG Base Excess Sodium Potassium Chloride Carbon Dioxide Anion Gap BUN Creatinine Est GFR ( Amer) Est GFR (Non-Af Amer) BUN/Creatinine Ratio Glucose POC Glucose (mg/dL) 219 H 204 H Hemoglobin A1c Calcium Total Bilirubin AST ALT Alkaline Phosphatase Troponin I B-Natriuretic Peptide Total Protein Albumin Globulin Albumin/Globulin Ratio Urine Color Urine Appearance Urine pH Ur Specific [place] Urine Protein Urine Ketones Urine Blood Urine Nitrate Urine Bilirubin Urine Urobilinogen Ur Leukocyte Esterase Urine Glucose Influenza A (Rapid) Influenza B (Rapid) Microbiology and Other Data: Microbiology 07/10/17 03:43 Gram Stain - Final Sputum 07/10/17 02:15 Legionella Urinary Antigen - Final Urine Negative Legionella 07/10/17 02:15 Streptococcus pneumoniae Ag Screen - Final Urine Negative S. 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 Patient is admitted for ABX, Steroids, and supportive care. - Patient Problems (1) Pneumonia Current Visit: No Status: Acute Code(s): J18.9 - PNEUMONIA, UNSPECIFIED ORGANISM SNOMED Code(s): 388220693 Comment: Bilateral LL pneumonia. Responding to Ceftriaxone and Azithromycin IV. Patient on RA. Continue with mucinex and incentive spirometry. Sputum and blood samples obtained and pending culture. Continued hemoptysis, patient on xarelto, will continue to monitor for resolution. (2) COPD (chronic obstructive pulmonary disease) Current Visit: Yes Status: Acute Code(s): J44.9 - CHRONIC OBSTRUCTIVE PULMONARY DISEASE, UNSPECIFIED SNOMED Code(s): 41392380 Comment: Current exacerbation. Antibiotics, Duonebs scheduled while awake and home dulera. Patient is feeling much better with improved lung exam. Change to PO steroids. (3) Diabetes Current Visit: No Status: Acute Code(s): E11.9 - TYPE 2 DIABETES MELLITUS WITHOUT COMPLICATIONS SNOMED Code(s): 39368536 Comment: Patient received 69 units of insulin yesterday. Increase Lantus to 40u daily. Continue ascarb matched insulin and SSI. Blood glucose monitoring AC. Will adjust Lantus up as needed. Patient takes 120u lantus at home. This is a correction from 07/11/2017 (4) Atrial fibrillation Current Visit: No Status: Acute Code(s): I48.91 - UNSPECIFIED ATRIAL FIBRILLATION SNOMED Code(s): 32069074 Comment: Rate controlled with Atenolol, Anticoagulated with Xarelto. (5) HTN (hypertension) Current Visit: No Status: Acute Code(s): I10 - ESSENTIAL (PRIMARY) HYPERTENSION SNOMED Code(s): 41323137 Comment: Continue Atenolol and Torsemide. Patient low end of normotensive. (6) Hyperlipidemia Current Visit: No Status: Acute Code(s): E78.5 - HYPERLIPIDEMIA, UNSPECIFIED SNOMED Code(s): 68157155 Comment: Continue statin. (7) DVT prophylaxis Current Visit: Yes Status: Acute Code(s): LEZ8059 - SNOMED Code(s): 232933871 Comment: Xarelto Status and Disposition: Patient is admitted inpatient. Will discharge when medially stable, predict 2- 3days.
[2017-07-11] MEDS: predniSONE TAB* 20 MG PO SCH (13:40)
[2017-07-11] MEDS: Atorvastatin* 20 MG TAB PO SCH (18:08)
[2017-07-11] MEDS: Calcium Carbonate CHEW TAB* 500 MG (TUMS) PO SCH ×3 (18:12→21:45)
[2017-07-11] MEDS: cefTRIAXone VIAL(*) 1,000 MG in NS 0.9% 50 ML* 50 ML IVPB SCH (21:34)
[2017-07-11] MEDS: Rivaroxaban TAB(*) 20 MG TAB PO SCH (21:34)
[2017-07-11] MEDS: Insulin GLARGINE(*) 1 UNITS UNIT SUBCUT SCH (22:24)
[2017-07-11] MEDS: Azithromycin IV(*) 500 MG in NS 0.9% 250 ML* 250 ML IVPB SCH (22:25)
[2017-07-12] MEDS: Albuterol/Ipratropium NEB.SOL* Albuterol 2.5 MG/Ipratropium 0.5 MG 3 ML INH SCH ×2 (00:22→00:23)
[2017-07-12] MEDS: Albuterol 2.5 MG/3 ML NEB.SOL* (0.083%) INH SCH ×2 (00:32→07:48)
[2017-07-12] MEDS: Albuterol 2.5 MG/3 ML NEB.SOL* (0.083%) INH PRN ×2 (03:40→14:43)
[2017-07-12 06:16] LABS: Hematocrit 34 % (42-52); Hemoglobin 11.6 g/dl (14.0-18.0); Mean Corpuscular HGB Conc 34 g/dl (31-36); Mean Corpuscular Hemoglobin 30 pg (27-31); Mean Corpuscular Volume 87 fL (80-94); Mean Platelet Volume 8 um3 (7.4-10.4); Red Blood Count 3.87 10^6/ul (4.0-5.4); Red Cell Distribution Width 15 % (10.5-15); White Blood Count 13.2 10^3/ul (3.5-10.8)
[2017-07-12 06:31] LABS: BUN/Creatinine Ratio 27.9 (8-20); Calcium 8.6 mg/dL (8.6-10.3); EGFR African American 73.9 (>60); EGFR Non-African American 57.4 (>60); Potassium 4.4 mmol/L (3.5-5.0)
[2017-07-12] MEDS: Torsemide TAB* 20 MG PO SCH (11:13)
[2017-07-12] MEDS: guaiFENesin ER TAB 600 MG PO SCH ×2 (11:13→21:05)
[2017-07-12] MEDS: Atenolol TAB* 25 MG PO SCH (11:13)
[2017-07-12] MEDS: predniSONE TAB* 20 MG PO SCH (11:14)
[2017-07-12] MEDS: Calcium Carbonate CHEW TAB* 500 MG (TUMS) PO SCH ×3 (11:14→21:04)
[2017-07-12] MEDS: Mometasone/Formoter 200/5 MDI INH SCH ×2 (11:14→20:45)
[2017-07-12] MEDS: Insulin LISPRO* 1 UNITS UNIT SUBCUT SCH ×7 (11:18→21:19)
[2017-07-12] MEDS ORDERED: Spiriva Inhaler DEVICE* 1 EACH DEVICE INH SCH (13:00)
[2017-07-12] MEDS ORDERED: Spiriva Inhaler DEVICE* 1 EACH DEVICE SCH (13:00)
--- NOTE | 2017-07-12 13:42 | PN ---
Subjective Date of Service: 07/12/17 Interval History: Patient seen and examined at bedside. Denies fever, chills, chest discomfort, N/ V/D. Apolinar reports increased shortness of breath today. He also reports needing to have oxygen again last night. Family History: Unchanged from Admission Social History: Unchanged from Admission Past Medical History: Unchanged from Admission Objective Vital Signs 07/11/17 07/11/17 07/11/17 13:50 15:17 15:33 Temperature 98.3 F Pulse Rate 76 88 Respiratory 14 18 Rate Blood Pressure 116/60 (mmHg) O2 Sat by Pulse 93 88 93 Oximetry 07/11/17 07/11/17 07/11/17 20:00 20:11 23:15 Temperature 97.9 F Pulse Rate 90 Respiratory 16 16 Rate Blood Pressure (mmHg) O2 Sat by Pulse 98 Oximetry 07/11/17 07/12/17 07/12/17 23:39 03:24 03:42 Temperature 97.4 F 97.4 F Pulse Rate 95 88 91 Respiratory 16 18 18 Rate Blood Pressure 135/75 129/84 (mmHg) O2 Sat by Pulse 93 93 97 Oximetry 07/12/17 07/12/17 07/12/17 07:31 07:40 09:25 Temperature 97.5 F Pulse Rate 88 88 Respiratory 17 22 17 Rate Blood Pressure 142/58 (mmHg) O2 Sat by Pulse 94 94 Oximetry 07/12/17 07/12/17 09:26 11:22 Temperature 97.6 F Pulse Rate 92 Respiratory 22 Rate Blood Pressure 148/72 (mmHg) O2 Sat by Pulse 94 94 Oximetry Oxygen Devices in Use Now: None Appearance: NAD, sitting up in bed Ears/Nose/Mouth/Throat: Mucous Membranes Moist Respiratory: Symmetrical Chest Expansion and Respiratory Effort, Clear to Auscultation - , diminished Cardiovascular: NL Sounds; No Murmurs; No JVD, RRR Abdominal: NL Sounds; No Tenderness; No Distention Extremities: No Edema Skin: No Rash or Ulcers Neurological: Alert and Oriented x 3, NL Muscle Strength and Tone Lines/Tubes/Other Access: Clean, Dry and Intact Peripheral IV - site benign Nutrition: Taking PO's Result Diagrams: 07/12/17 05:53 07/12/17 05:53 Additional Lab and Data: Microbiology and Other Data: Microbiology 07/10/17 03:43 Gram Stain - Final Sputum 07/10/17 02:15 Legionella Urinary Antigen - Final Urine Negative Legionella 07/10/17 02:15 Streptococcus pneumoniae Ag Screen - Final Urine Negative S. pneumo Antigen 07/10/17 01:40 Influenza Types A,B Antigen (JAY JAY) - Final Nasopharyngeal Specimen received for Influenza A/B Molecular testing Assess/Plan/Problems-Billing Assessment: Mr. 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 Patient is admitted for ABX, Steroids, and supportive care. - Patient Problems (1) Pneumonia Code(s): J18.9 - PNEUMONIA, UNSPECIFIED ORGANISM SNOMED Code(s): 879949703 Comment: - Bilateral LL pneumonia. - Leukocytosis improving and afebrile. - Continue with mucinex and incentive spirometry. - Sputum culture with Yeast, and blood cultures with no growth, day 1. - Urine antigens for Legionella and S. Penumo negative. - Continued hemoptysis, patient on xarelto, will continue to monitor for resolution. - Ceftriaxone and Azithromycin IV. (2) COPD (chronic obstructive pulmonary disease) Code(s): J44.9 - CHRONIC OBSTRUCTIVE PULMONARY DISEASE, UNSPECIFIED SNOMED Code(s): 54181677 Comment: - Current exacerbation. - Continue antibiotics, duonebs scheduled while awake, steroids, and home dulera. (3) Diabetes Code(s): E11.9 - TYPE 2 DIABETES MELLITUS WITHOUT COMPLICATIONS SNOMED Code(s) : 29795223 Comment: - Glucose 200-300s. - Blood glucose monitoring AC. - Continue Lantus (increased to BID), carb counting, and Lispro SSI. (4) HTN (hypertension) Code(s): I10 - ESSENTIAL (PRIMARY) HYPERTENSION SNOMED Code(s): 15213490 Comment: - SBPs 110-140's. - Continue Atenolol and Torsemide. (5) Hyperlipidemia Code(s): E78.5 - HYPERLIPIDEMIA, UNSPECIFIED SNOMED Code(s): 64005519 Comment: - Continue statin. (6) Atrial fibrillation Code(s): I48.91 - UNSPECIFIED ATRIAL FIBRILLATION SNOMED Code(s): 01906977 Comment: - Rate controlled with Atenolol and anticoagulated with Xarelto. (7) DVT prophylaxis Code(s): GJC6307 - SNOMED Code(s): 542581671 Comment: - Andreia (8) Full code status Code(s): Z78.9 - OTHER SPECIFIED HEALTH STATUS SNOMED Code(s): 628292406 Status and Disposition: Inpatient. Will discharge when medially stable, predict 2-3days.
[2017-07-12] MEDS: Atorvastatin* 20 MG TAB PO SCH (17:56)
[2017-07-12] MEDS: cefTRIAXone VIAL(*) 1,000 MG in NS 0.9% 50 ML* 50 ML IVPB SCH (21:05)
[2017-07-12] MEDS: Insulin GLARGINE(*) 1 UNITS UNIT SUBCUT SCH (21:19)
[2017-07-12] MEDS: Rivaroxaban TAB(*) 20 MG TAB PO SCH (21:23)
[2017-07-12] MEDS: Azithromycin IV(*) 500 MG in NS 0.9% 250 ML* 250 ML IVPB SCH (22:20)
[2017-07-13] MEDS: Albuterol 2.5 MG/3 ML NEB.SOL* (0.083%) INH PRN ×2 (02:35→07:58)
[2017-07-13] MEDS: Mometasone/Formoter 200/5 MDI INH SCH (07:57)
[2017-07-13] MEDS: guaiFENesin ER TAB 600 MG PO SCH (08:54)
[2017-07-13] MEDS: Atenolol TAB* 25 MG PO SCH (08:54)
[2017-07-13] MEDS: Torsemide TAB* 20 MG PO SCH (08:54)
[2017-07-13] MEDS: predniSONE TAB* 20 MG PO SCH (08:54)
[2017-07-13] MEDS ORDERED: Insulin GLARGINE(*) 1 UNITS UNIT SUBCUT SCH (09:00)
[2017-07-13] MEDS ORDERED: Tiotropium CAP.INH* CAP.INH/18 MCG (USE ORDER SET !) INH SCH (09:00)
[2017-07-13] MEDS: Calcium Carbonate CHEW TAB* 500 MG (TUMS) PO SCH ×2 (09:55→14:30)
[2017-07-13] MEDS: Insulin LISPRO* 1 UNITS UNIT SUBCUT SCH ×4 (09:55→14:32)
[2017-07-13 11:46] VITALS: BP 137/73
--- NOTE | 2017-07-13 15:02 | PN ---
Subjective Date of Service: 07/13/17 Interval History: Patient seen and examined at bedside. Denies fever, chills, chest discomfort, N/ V/D. Pt states that he continues to have shortness of breath with exertion, but this is manageable if he takes his time walking back from the bathroom. Pt continues to have hemoptysis, but this continues to improve. Pt completed overnight pulse ox, he was found to have 2 hours below 90%. Family History: Unchanged from Admission Social History: Unchanged from Admission Past Medical History: Unchanged from Admission Objective Active Medications: Albuterol (Ventolin 2.5 Mg/3 Ml Neb.Sandy*) 2.5 mg INH Q2H PRN Reason: SOB/ WHEEZING Atenolol (Tenormin Tab*) 25 mg PO DAILY SHELBY Atorvastatin Calcium (Lipitor*) 20 mg PO QPM SHELBY Calcium Carbonate (Tums*) 500 mg PO TID SHELBY Device (Tiotropium Inhaler Device*) 1 each .SEE ORDER .USE w/ SPIRIVA CAPS SHELBY Guaifenesin (Mucinex*) 1,200 mg PO BID SHELBY Ceftriaxone Sodium 1,000 mg/ (Sodium Chloride) 50 mls @ 200 mls/hr IVPB Q24H SHELBY Azithromycin 500 mg/ Sodium (Chloride) 250 mls @ 250 mls/hr IVPB Q24H SHELBY Insulin Glargine (Lantus(*)) 40 units SUBCUT 2100 SHELBY Insulin Glargine (Lantus(*)) 10 units SUBCUT DAILY SHELBY Insulin Human Lispro (Humalog*) 0 units SUBCUT AC SHELBY Insulin Human Lispro (Humalog*) 0 units SUBCUT ACHS SHELBY Mometasone Furoate/Formoterol Fumar (Dulera 200/5 Mdi*) 2 puff INH BID SHELBY Prednisone (Deltasone Tab*) 60 mg PO DAILY SHELBY Rivaroxaban (Xarelto (*)) 20 mg PO BEDTIME SHELBY Tiotropium [place] (Spiriva Cap.Inh*) 1 cap INH DAILY SHELBY Torsemide (Demadex*) 20 mg PO DAILY SHELBY Vital Signs 07/12/17 07/12/17 07/12/17 15:53 19:58 20:00 Temperature 97.6 F Pulse Rate 96 96 Respiratory 18 18 18 Rate Blood Pressure 137/61 (mmHg) O2 Sat by Pulse 95 90 Oximetry 07/13/17 07/13/1717 00:03 02:34 03:35 Temperature 97.5 F 97.8 F Pulse Rate 89 93 79 Respiratory 16 18 16 Rate Blood Pressure 161/78 142/58 (mmHg) O2 Sat by Pulse 93 90 93 Oximetry 07/13/17 07/13/17 07/13/17 07:24 07:30 11:14 Temperature 98.4 F 97.6 F Pulse Rate 94 155 Respiratory 17 17 16 Rate Blood Pressure 155/72 137/73 (mmHg) O2 Sat by Pulse 96 94 Oximetry 07/13/17 11:50 Temperature Pulse Rate 82 Respiratory Rate Blood Pressure (mmHg) O2 Sat by Pulse 95 Oximetry Oxygen Devices in Use Now: None Appearance: NAD, sitting up on the side of the bed Ears/Nose/Mouth/Throat: Mucous Membranes Moist Respiratory: Symmetrical Chest Expansion and Respiratory Effort, Clear to Auscultation - , diminished Cardiovascular: RRR, - - Grade 2/6 systolic murmur heard best at the apex Skin: No Rash or Ulcers Neurological: Alert and Oriented x 3, NL Muscle Strength and Tone Lines/Tubes/Other Access: Clean, Dry and Intact Peripheral IV - site benign Nutrition: Taking PO's Result Diagrams: 07/12/17 05:53 07/12/17 05:53 Additional Lab and Data: Microbiology and Other Data: Microbiology 07/10/17 03:43 Gram Stain - Final Sputum 07/10/17 02:15 Legionella Urinary Antigen - Final Urine Negative Legionella 07/10/17 02:15 Streptococcus pneumoniae Ag Screen - Final Urine Negative S. pneumo Antigen 07/10/17 01:40 Influenza Types A,B Antigen (JAY JAY) - Final Nasopharyngeal Specimen received for Influenza A/B Molecular testing Assess/Plan/Problems-Billing Assessment: Mr. 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 Patient is admitted for ABX, Steroids, and supportive care. - Patient Problems (1) Pneumonia Code(s): J18.9 - PNEUMONIA, UNSPECIFIED ORGANISM SNOMED Code(s): 624076542 Comment: - Bilateral LL pneumonia. - Leukocytosis improving and afebrile. - Continue with mucinex and incentive spirometry. - Sputum culture with Yeast, and blood cultures with no growth, day 2/3. - Urine antigens for Legionella and S. Penumo negative. - Continued hemoptysis but improving, patient on xarelto, will continue to monitor for resolution. - Change to Cefdinir PO and completed course of Azithromycin IV. (2) COPD (chronic obstructive pulmonary disease) Code(s): J44.9 - CHRONIC OBSTRUCTIVE PULMONARY DISEASE, UNSPECIFIED SNOMED Code(s): 22299966 Comment: - Current exacerbation. - Continue antibiotics, steroids, spiriva, and home dulera. (3) Diabetes Code(s): E11.9 - TYPE 2 DIABETES MELLITUS WITHOUT COMPLICATIONS SNOMED Code(s) : 38854356 Comment: - Glucose 130-270s. - Blood glucose monitoring AC. - Resume home Lantus and Lispro (4) HTN (hypertension) Code(s): I10 - ESSENTIAL (PRIMARY) HYPERTENSION SNOMED Code(s): 39756977 Comment: - SBPs 130-160's. - Continue Atenolol and Torsemide. - Resume home valsartan. (5) Hyperlipidemia Code(s): E78.5 - HYPERLIPIDEMIA, UNSPECIFIED SNOMED Code(s): 38266231 Comment: - Continue statin. (6) Atrial fibrillation Code(s): I48.91 - UNSPECIFIED ATRIAL FIBRILLATION SNOMED Code(s): 40409381 Comment: - Rate controlled with Atenolol and anticoagulated with Xarelto. (7) DVT prophylaxis Code(s): OBV5863 - SNOMED Code(s): 814836675 Comment: - Xarelto (8) Full code status Code(s): Z78.9 - OTHER SPECIFIED HEALTH STATUS SNOMED Code(s): 828795522 Status and Disposition: Inpatient. Stable for discharge to home today.
--- NOTE | 2017-07-14 01:47 | DS ---
CC: Adair Han MD * DISCHARGE SUMMARY: DATE OF ADMISSION: 07/09/17 DATE OF DISCHARGE: 07/13/17 ATTENDING PHYSICIAN: Eelazar Weir MD * (dictated by Yanna Celis NP). PRIMARY CARE PROVIDER: Adair Han MD PRIMARY DIAGNOSES: 1. Bibasilar pneumonia. 2. Chronic obstructive pulmonary disease exacerbation. SECONDARY DIAGNOSES: 1. History of coronary artery disease. 2. Diabetes mellitus type 2. 3. Hypertension. 4. Hyperlipidemia. 5. Chronic low back pain. 6. [id number]-rumtjh mitral valve regurgitation. STUDIES WHILE IN THE HOSPITAL: Chest x-ray on 07/09/17, radiologist impression : COPD with mild fibrotic changes. DISCHARGE MEDICATIONS: New home medications: 1. Cefdinir 300 mg oral twice daily for 7 more days. 2. Spiriva 1 capsule inhalation daily. 3. Prednisone 20 mg tablets, take 50 mg oral daily for 3 days followed by 40 mg oral daily for 3 days followed by 30 mg oral daily for 3 days followed by 20 mg oral daily for 3 days followed by 10 mg oral daily for 3 days, and then stop. 4. Mucinex 1200 mg oral twice daily. 5. Calcium carbonate 500 mg oral 3 times daily. Continued home medications: 1. Lantus insulin 40 units subcutaneous 3 times daily. 2. Valsartan 80 mg oral daily. 3. Torsemide 20 mg oral daily. 4. Saw palmetto 1 capsule oral daily. 5. Potassium chloride 10 mEq oral daily. 6. Nitroglycerin 0.2 mg patch transdermal daily. 7. [place]-3 fatty acids 2000 mg oral daily. 8. Centrum silver 1 tablet oral daily. 9. Lispro insulin 30 to 35 units subcutaneous 3 times daily with meals. 10. ProAir RespiClick 108 mcg inhalation every 4 hours as needed for shortness of breath. 11. Crestor 10 mg oral every evening. 12. Xarelto 20 mg oral daily at bedtime. 13. Symbicort 160/4.5 two puffs inhalation twice daily. 14. Atenolol 25 mg oral daily. HISTORY OF PRESENT ILLNESS/HOSPITAL COURSE: Mr. Lemus is a 77-year-old male with past medical history significant for obesity, diabetes mellitus type 2, COPD, hypertension, hyperlipidemia, coronary artery disease, [id number] mitral regurgitation, who presented to the emergency room with complaints of increased upper airway congestion with fever, chills, rigors, and shortness of breath that worsened throughout the course of the day prompting the patient to present to the emergency room for further evaluation of his symptoms. While in the emergency room the patient had an EKG showing an atrial fibrillation with a rate of 86, he had diffuse T-wave inversions that were similar to the previous EKG from 05/05/17. He had a chest x-ray showing COPD with mild old fibrotic changes that was interpreted by the admitting hospitalist as bibasilar infiltrates versus atelectasis and hospitalists were asked to evaluate the patient for admission. While in the hospital, the patient was continued on ceftriaxone and azithromycin. He has received a total of 3 days of both and completed his course of azithromycin with 1500 mg total. He was placed on Mucinex. He had Legionella and S-pneumoniae antigen. Urine antigens checked, they were negative. He had rapid influenza A and B that was negative. The patient had blood cultures drawn that were negative on day #2 and negative on day #3. He had sputum samples showing yeast and normal maximo. The patient continued to do well. He remained afebrile after his initial presentation. His leukocytosis was improving and was 13.2 on the day prior to discharge. The patient also presented with acute kidney injury. The patient's creatinine improved closer to his baseline during his stay, he was down to 1.22 on the day prior to discharge. The patient was able to ambulate to the bathrooms, stated that over the course of his stay that his shortness of breath improved as long as he took his time when ambulating. The patient was able to be weaned down off 3 L of oxygen down to room air during his stay. The patient underwent an overnight pulse oximetry showing that he had a desaturation of less than 90% for 2- hour period. It was decided to send him home on home oxygen at night. Mr. Lemus is stable for discharge to home today. Vital signs are as follows : Temperature 97.6, heart rate 82, respiratory rate 16, O2 saturation 94% on room air, blood pressure 137/73. DISCHARGE PLAN: Mr. Lemus will be discharged to home. Activity as tolerated. The patient should be on a consistent carbohydrate diet. As far as the patient's bibasilar pneumonia, he has been continued on cefdinir for 7 more days to complete a 10-day course of antibiotics. Completed a course of azithromycin during his hospitalization. The patient is continued on Mucinex. It was also felt that the patient had a COPD exacerbation. He has been continued on a prednisone taper. He has been instructed to take prednisone 50 mg oral daily for 3 days followed by 40 mg oral daily for 3 days, then 30 mg oral daily for 3 days, then 20 mg oral daily for 3 days, and then 10 mg oral daily for 3 days and then continue. Again, the patient underwent an overnight sleep study and requires oxygen at bedtime. He should be on 2 L via nasal cannula at nighttime. As far as the patient's diabetes, his glucose has not been well controlled here. The patient reports that his glucose is not well controlled at home. He reports being in the 200 to 300 at home, although his hemoglobin A1c was 5.0. The patient will be continued on his previous home insulin regimen knowing that he may need to decrease the amount of insulin that he is on while acutely ill and not eating his normal diet. The patient has a followup appointment with his primary care provider, Dr. Han, on 07/19/17 at 11:30 a.m. I recommend consider sending the patient to a supervisor sewing room, Dr. Villela, to assist with his COPD management. The patient has also been placed on Spiriva. The patient has been instructed to return to the emergency room for any chest pain or shortness of breath. This is a summarized report of a complex medical history and hospital stay. For further details, please see the entire medical record. Time for this discharge was approximately 50 minutes, greater than half of that was spent with the patient and discussing discharge plans and instructions. CONDITION ON DISCHARGE: Stable. YANNA MUELLER, KAMRAN [id number]/[facility] #: [id number] DEANNE
== END 2017-07-13 16:05 | disposition home health service (06) | DRG 190 ==
LOC: ED 20:35 → SSU 07-10 00:59
PROVIDERS: ADMIT Hospitalist; ATTEND Internal Medicine
DX: J44.1 Chronic obstructive pulmonary disease with (acute) exacerbation (principal); J18.8 Other pneumonia, unspecified organism; N17.9 Acute kidney failure, unspecified; E11.9 Type 2 diabetes mellitus without complications; I48.91 Unspecified atrial fibrillation; I34.0 Nonrheumatic mitral (valve) insufficiency; Z99.81 Dependence on supplemental oxygen; K76.0 Fatty (change of) liver, not elsewhere classified; J44.0 Chronic obstructive pulmonary disease with (acute) lower respiratory infection; I10 Essential (primary) hypertension; E78.5 Hyperlipidemia, unspecified; I25.10 Atherosclerotic heart disease of native coronary artery without angina pectoris; G89.29 Other chronic pain; M54.9 Dorsalgia, unspecified; F10.21 Alcohol dependence, in remission; E66.9 Obesity, unspecified; K44.9 Diaphragmatic hernia without obstruction or gangrene; M19.90 Unspecified osteoarthritis, unspecified site; Z96.652 Presence of left artificial knee joint; R40.2412 Glasgow coma scale score 13-15, at arrival to emergency department; Z95.5 Presence of coronary angioplasty implant and graft; Z90.49 Acquired absence of other specified parts of digestive tract; Z87.891 Personal history of nicotine dependence; Z98.52 Vasectomy status; Z68.32 Body mass index [BMI] 32.0-32.9, adult; Z82.49 Family history of ischemic heart disease and other diseases of the circulatory system; Z83.2 Family history of diseases of the blood and blood-forming organs and certain disorders involving the immune mechanism; Z87.01 Personal history of pneumonia (recurrent); Z83.3 Family history of diabetes mellitus; Z79.4 Long term (current) use of insulin; Z79.01 Long term (current) use of anticoagulants; Z79.51 Long term (current) use of inhaled steroids
CPT/HCPCS: 36415; 71010; 80048; 80053; 81003; 82803; 83036; 83880; 84484; 85025; 85610; 85730; 87040; 87070; 87205; 87502; 87899; 93005; 94640; 94760; 94762; A9270-GY; J0456; J0696; J2405; J2920; J2930; J3475; J7512

== ENCOUNTER 2017-07-19 09:37 | Observation (INO) | payer MEDICARE, OTHER ==
--- NOTE | 2017-07-19 10:21 | RAD ---
INDICATION: Near-syncope COMPARISON: July 09, 2017 TECHNIQUE: An AP portable view obtained at 1000 hours is submitted. FINDINGS: Bones/Soft Tissues: There are no acute bony findings. Cardiomediastinal: The cardiomediastinal silhouette is mildly prominent. Lungs: There are no focal infiltrates. There are mild chronic interstitial changes and there is mild hyperinflation Pleura: There are no pleural effusions. Other: None IMPRESSION: HYPER INFLATION WITH CHRONIC INTERSTITIAL CHANGES.
[2017-07-19 10:22] LABS: Hematocrit 40 % (42-52); Hemoglobin 13.1 g/dl (14.0-18.0); Mean Corpuscular HGB Conc 33 g/dl (31-36); Mean Corpuscular Hemoglobin 29 pg (27-31); Mean Corpuscular Volume 87 fL (80-94); Mean Platelet Volume 7 um3 (7.4-10.4); Red Blood Count 4.54 10^6/ul (4.0-5.4); Red Cell Distribution Width 15 % (10.5-15); White Blood Count 20.8 10^3/ul (3.5-10.8)
[2017-07-19 10:25] LABS: Add Diff/Slide Review? Slide Review Added; Comments Flag Yes
[2017-07-19] MEDS ORDERED: Dextrose 50% VIAL 50 ml IV PRN (10:27)
[2017-07-19] MEDS ORDERED: Dextrose 50% Syringe 50 ML* 25 GM/50 ML SYRINGE ONE (10:28)
[2017-07-19] MEDS ORDERED: Dextrose 50% Syringe 50 ML* 25 GM/50 ML SYRINGE IV PUSH PRN ×2 (10:34→12:30)
[2017-07-19 10:39] LABS: Albumin 3.6 g/dL (3.2-5.2); BUN/Creatinine Ratio 21.1 (8-20); Calcium 8.3 mg/dL (8.6-10.3); EGFR African American 69.9 (>60); EGFR Non-African American 54.4 (>60); Globulin 2.4 g/dL (2-4); Potassium 3.2 mmol/L (3.5-5.0); Total Bilirubin 0.8 mg/dL (0.2-1.0)
[2017-07-19 10:41] LABS: Troponin I 0.01 ng/mL (<0.04)
[2017-07-19 11:25] LABS: TSH (Thyroid Stimulating Horm) 1.56 mcIU/mL (0.34-5.60)
[2017-07-19] MEDS ORDERED: Potassium Chlor TAB* 20 MEQ TAB.ER PO ONE ×2 (11:31→16:00)
[2017-07-19] MEDS ORDERED: Ondansetron INJ* 2 MG/ML VIAL IV PRN (12:16)
[2017-07-19] MEDS ORDERED: Acetaminophen TAB* 325 MG PO PRN (12:16)
[2017-07-19] MEDS ORDERED: Albuterol inh POWDER (NF) 1 PUFF MDI INH PRN (12:18)
[2017-07-19] MEDS ORDERED: D5W 1/2 NS 1000 ML BAG* 1,000 ML IV SCH ×2 (13:00)
[2017-07-19 13:35] LABS: Urine Bilirubin Negative (Negative); Urine Glucose Negative (Negative); Urine Nitrite Negative (Negative)
--- NOTE | 2017-07-19 16:56 | HP ---
CC: Dr. Han * HISTORY AND PHYSICAL: DATE OF ADMISSION: 07/19/17 PRIMARY CARE PROVIDER: Dr. Han. ATTENDING PHYSICIAN WHILE IN THE HOSPITAL: Dr. Camilo Engle * (report dictated by Nilay Neves NP) CHIEF COMPLAINT: 1. Hypoglycemia. 2. Weakness. 3. Confusion. HISTORY OF PRESENT ILLNESS: Mr. Lemus is a 77-year-old male patient recently here in the hospital with pneumonia. He needs 2 more days of cefdinir and he needs steroid taper, which will take him out until 1 day. He presented today because he woke up, he just was feeling like he was in a daze, in a fog. He checked his sugar, it was in the 200s. He gave himself 40 units of Lantus. He went to his job. 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 He drove home and he says when he drove home, he does not really remember the drive in detail. He states things were blurred and he does not remember. He says that he was seeing spots. He never got really sweaty. He denied any facial drooping or weakness to one side. When he got home, he had trouble getting out of the car. He was finally able to get out of the car and he sat down in his recliner in his home with all of his cloths and he was speaking gibberish and acting confused and not making sense, so his was concerned, called 911 immediately. They checked his blood sugar; it was 39. They gave him an amp of D50 and after the amp, he seemed to improve significantly. He does state that he has been taking Lantus 40 units t.i.d. for the last 3 months. He says he has been doing well with it. He says that last time he was here, he came in complaining of cough and fever. He says he has not had any more fevers or chills. He says he has been taking his antibiotics as prescribed. He has not been having any difficulty with this. He says he has been taking his steroids and his breathing has improved from when he came in, but is not completely back to his baseline just yet. He denied any worsening fevers. No dysuria, no frequency. He denied having any seizure. No loss of consciousness. Again, no skin ulcerations and no chest pain. No vomiting or diarrhea, but because of the altered mental status, the hypoglycemia in addition to this, we were asked to evaluate for admission. PAST MEDICAL HISTORY: Significant for: 1. CAD. 2. [id number]-oaqefw mitral regurgitation, which he is following at [facility]. 3. Diabetes. 4. COPD. 5. Hypertension. 6. Hyperlipidemia. 7. Chronic pain. 8. History of EtOH abuse. 9. Atrial fibrillation. PAST SURGICAL HISTORY: He has had heart catheterization and in addition to this , he has had cholecystectomy, vasectomy, and left total knee replacement, and he has had lumbar spine surgery. MEDICATIONS: Home meds according to list that was provided include: 1. Prednisone 30 mg daily; again, he is to be on a taper, he is to taper down to 20 for 3 days and then 10 mg for 3 days. 2. Mucinex 1200 mg p.o. b.i.d. 3. Valsartan 80 mg daily. 4. Demadex 20 mg daily. 5. Spiriva 1 capsule inhaled daily. 6. Saw palmetto 1 capsule daily. 7. Crestor 10 mg daily. 8. Xarelto 20 mg at bedtime. 9. Potassium 10 mEq daily. 10. Wilton-3 fatty acid 2000 mg daily. 11. Nitro patch 0.2 mg transdermally daily. 12. Centrum Silver 1 tablet daily. 13. Lispro sliding scale take as directed. 14. Lantus 40 units subcu t.i.d. 15. Cefdinir 300 mg p.o. b.i.d. 16. Tums 500 mg p.o. t.i.d. 17. Symbicort 2 puffs inhaled b.i.d. 18. Atenolol 25 mg daily. 19. ProAir 108 mcg inhaled every 4 hours as needed. ALLERGIES TO MEDICATIONS: Include no known drug allergies. FAMILY HISTORY: His mother of bleeding disorder. She also had mitral valve replacement. Father had history of DVT. SOCIAL HISTORY: He is a former smoker. 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 Surrogate decision maker is his . REVIEW OF SYSTEMS: There is no documented fever. He denied any significant weight change. There was no double vision. He denies having any ear discharge. No rhinorrhea. No sore throat, no thyroid enlargement. Denied any chest pain. There was no orthopnea, no nocturnal dyspnea. Again, no abdominal pain. No nausea, no vomiting. No dysuria, no frequency. There was no seizure and no loss of consciousness. Review of 14 systems completed, all others negative. PHYSICAL EXAMINATION GENERAL: At this time, Mr. Lemus is a 77-year-old male patient, again well nourished, well developed. He does not appear to be in any acute distress. He is sitting in the ED stretcher. VITAL SIGNS: Blood pressure 120/63, pulse 83, respirations 16, O2 sat 97%, temperature 96.7. HEENT: Head: Atraumatic and normocephalic. Eyes: EOMs are intact. Sclerae anicteric and not pale. Throat: Oral mucosa appears to be dry. No oropharyngeal erythema. NECK: Supple. LUNGS: Clear to auscultation. No wheezes, rales, or rhonchi. HEART: Sounds S1 and S2, irregularly irregular rate. There was a grade 2 to 3 murmur in the aortic listening area. ABDOMEN: Soft, flat, and nontender. Bowel sounds present. EXTREMITIES: Pulses 2+ throughout, able to move all 4 extremities with 5/5 strength. NEUROLOGIC: The patient is awake, alert, oriented x3. Tongue midline. Ssrs Report Developer were equal. No gross focal deficits. SKIN: Intact. DIAGNOSTIC STUDIES/LAB DATA: WBC of 20.8, RBC of 4.54, hemoglobin 13.1, hematocrit of 40, and platelet count 256. Sodium was 135; potassium was 3.2; chloride 100; bicarb 28; BUN 27; creatinine 1.28; glucose 50, repeat glucose was 153, now down to 54; calcium 8.3. Total bili 0.8, AST 15, ALT 25, alk phos 43. CK 62, CK-MB 4.4. Troponin 0.01. BNP is 77. TSH normal. The patient did have chest x-ray obtained today, which revealed hyperinflammation with chronic interstitial changes. He had an EKG obtained today, showed right bundle branch block with atrial fibrillation, rate of 78. No ST elevation or T-wave inversions. Old medical records were reviewed. Last EF was 35% to 50%. ASSESSMENT AND PLAN: Mr. Lemus is a 77-year-old male patient coming into the ER today with complaints of confusion, on evaluation found to be hypoglycemic. He will be admitted under observation status for: 1. Altered mental status secondary to hypoglycemia. At this point, he is mentating well and he is back to his baseline, but his sugar is still dropping at times. He has not eaten anything yet today, so we are going to give him a diet now. I am going to put him on D5 half normal at 100 an hour for 1 L. We will check his fingersticks every hour. Etiology of the hypoglycemia is unclear. It could be secondary to medications, it could also be related to underlying infection. So, I am going to do panculture him. We will monitor him. I am not giving him antibiotics because there is no obvious source at this point. We will continue to follow. 2. Leukocytosis. Again, this could be new onset of an infection. Panculturing him for now. Urine is out pending. Did order blood cultures. Holding on antibiotics, it could be a leukemoid reaction to the hypoglycemia. We will continue to follow. 3. Coronary artery disease. Continue his nitro and statin and beta-ravi therapy. 4. History of zbmzfqfu-gv-ixhqmj mitral regurgitation. He can follow with his primary cardiothoracic surgeon. 5. Diabetes. At this point, holding his diabetic medications for the time being. 6. Chronic obstructive pulmonary disease. Continue meds as prescribed. Lungs are clear. 7. Recent pneumonia. Appears to be recovering from this. We will continue 2 more days of his antibiotics and then continue off his prednisone taper. He is on 30, 4 more days; 20 for 3 days; 10 for 3 days. 8. Hypertension. Continue meds as prescribed. 9. Hyperlipidemia. Continue statin therapy. 10. Chronic pain. Tylenol will be made available. 11. History of EtOH abuse. Not an active issue. 12. Atrial fibrillation. Continue Xarelto. His rate is controlled currently. We will continue his atenolol. 13. DVT prophylaxis. He is on Xarelto. 14. Code status. Full code. 15. Fluids, electrolytes, and nutrition. Consistent carb diet has been ordered. TIME SPENT: On the admission was 60 minutes, greater than half the time was spent [id number] with the patient obtaining my history of physical; the other half time was spent going over the plan of care with the patient and implementing plan of care. I did discuss the plan of care with my attending, Dr. Engle; he is in agreement. NILAY NEVES NP [id number]/[facility] #: [id number] DEANNE
[2017-07-19] MEDS ORDERED: Atorvastatin* 20 MG TAB PO SCH (18:00)
[2017-07-19] MEDS: CMCS:Cefdinir cap (NF) 300 MG CAP PO SCH (20:12)
[2017-07-19] MEDS: Mometasone/Formoter 200/5 MDI INH SCH (20:55)
[2017-07-19] MEDS ORDERED: Rivaroxaban TAB(*) 20 MG TAB PO SCH (21:00)
[2017-07-20] MEDS ORDERED: Benzocaine/Menthol LOZ* 1 LOZENGE PO PRN (03:39)
[2017-07-20 06:45] LABS: Hematocrit 41 % (42-52); Hemoglobin 13.9 g/dl (14.0-18.0); Mean Corpuscular HGB Conc 34 g/dl (31-36); Mean Corpuscular Hemoglobin 29 pg (27-31); Mean Corpuscular Volume 87 fL (80-94); Mean Platelet Volume 7 um3 (7.4-10.4); Red Blood Count 4.72 10^6/ul (4.0-5.4); Red Cell Distribution Width 15 % (10.5-15); White Blood Count 15.4 10^3/ul (3.5-10.8)
[2017-07-20 07:12] LABS: BUN/Creatinine Ratio 17.7 (8-20); Calcium 8.6 mg/dL (8.6-10.3); EGFR African American 68.7 (>60); EGFR Non-African American 53.4 (>60)
[2017-07-20] MEDS ORDERED: Valsartan TAB* 80 MG PO SCH (09:00)
[2017-07-20] MEDS ORDERED: Spiriva Inhaler DEVICE* 1 EACH DEVICE ONE (09:00)
[2017-07-20] MEDS ORDERED: Tiotropium CAP.INH* CAP.INH/18 MCG (USE ORDER SET !) INH SCH (09:00)
[2017-07-20] MEDS ORDERED: Torsemide TAB* 20 MG PO SCH (09:00)
[2017-07-20] MEDS ORDERED: Nitroglycerin 0.2 MG/HR PATCH* (5 MG) TRANSDERM SCH (09:00)
[2017-07-20] MEDS ORDERED: Atenolol TAB* 25 MG PO SCH (09:00)
[2017-07-20] MEDS ORDERED: predniSONE TAB* 10 MG PO SCH (09:00)
[2017-07-20] MEDS ORDERED: Potassium Chlor TAB* 10 MEQ TAB.ER PO SCH (09:00)
[2017-07-20 09:15] VITALS: BP 132/75
[2017-07-20] MEDS: CMCS:Cefdinir cap (NF) 300 MG CAP PO SCH (09:33)
[2017-07-20] MEDS: Mometasone/Formoter 200/5 MDI INH SCH (09:41)
--- NOTE | 2017-07-20 18:51 | ED ---
Kalpesh Jimenez Thomas, scribed for Tin Mccain MD on 07/19/17 at 1002 . HPI Diabetic - HPI Summary HPI Summary: The pt is a 77 y/o M with a Hx of IDDM BIBA c/o low blood sugar at 39. His only complaint is of generalized weakness. He was given 250mL of D10 and his repeat blood sugar is 278. He ate a McMuffin this AM. He took insulin and Lantus this morning. The patient was recently admitted to [facility] [place] from 07/10/17 to 07/13/17 for PNA and a COPD exacerbation. Pt additionally c/o a cough with phlegm production for the last few days. Pt denies any other complaints at this time. - History Of Current Complaint Chief Complaint: EDWeakness Time Seen by Provider: 07/19/17 09:44 Hx Obtained From: Patient Onset/Duration: Sudden Onset, Lasting Hours - blood sugar measured 39 this AM, Still Present Timing: Constant Character: Other - Generalized weakness Aggravating: Other - Unknown Associated Signs & Symptoms: Cough - in the last few days Related History: DM II, Insulin Requiring - Allergies/Home Medications Allergies/Adverse Reactions: Allergies Allergy/AdvReac Type Severity Reaction Status Date / Time No Known Allergies Allergy Verified 10/14/16 17:28 Home Medications: Home Medications Rosuvastatin (NF) [Crestor (NF)] 10 mg PO QPM 07/19/17 [History Confirmed ] predniSONE TAB* [Deltasone TAB*] 30 mg PO DAILY 07/19/17 [History Confirmed ] PMH/Surg Hx/FS Hx/Imm Hx Previously Healthy: No Endocrine/Hematology History: Reports: Hx Diabetes - TYPE 2 Denies: Hx Anticoagulant Therapy, Hx Blood Transfusions, Hx Thyroid Disease Cardiovascular History: Reports: Hx Angina, Hx Coronary Artery Disease, Hx Hypercholesterolemia, Hx Hypertension - ON MEDS, Hx Valvular Heart Disease Denies: Hx Myocardial Infarction, Hx Pacemaker/ICD Respiratory History: Reports: Hx Chronic Obstructive Pulmonary Disease (COPD), Hx Pneumonia, Other Respiratory Problems/Disorders - COPD Denies: Hx Asthma, Hx Seasonal Allergies, Hx Sleep Apnea GI History: Reports: Hx Diverticulosis, Hx Gall Bladder Disease - cholecystectomy 1970, Hx Hiatal Hernia, Other GI Disorders - fatty liver History: Reports: Hx Benign Prostatic Hyperplasia, Hx Kidney Infection Denies: Hx Kidney Stones, Hx Renal Disease Musculoskeletal History: Reports: Hx Arthritis, Hx Orthopedic Injury - Left shoulder 90s Sensory History: Reports: Hx Contacts or Glasses Denies: Hx Cataracts, Hx Glaucoma, Hx Hearing Aid, Hx Hearing Problem Opthamlomology History: Reports: Hx Contacts or Glasses Denies: Hx Cataracts, Hx Glaucoma Neurological History: Denies: Hx Dementia, Hx Seizures Psychiatric History: Denies: Hx Panic Disorder, Hx Substance Abuse - Surgical History Surgery Procedure, Year, and Place: 2006 HERNIATED DISC RUPTURE LSP SURGERY. 1991 BROKEN LEFT SHOULDER REPAIRED HARDWARE REMOVED. 1994 GALLBLADDER. 1998 HEART STENT [place] FOR 1.5T. 2014 LEFT KNEE REPLACEMENT Hx Anesthesia Reactions: No Infectious Disease History: No Infectious Disease History: Reports: Hx Shingles - 43 years ago Denies: Hx Hepatitis, Hx Human Immunodeficiency Virus (HIV), History Other Infectious Disease, Traveled Outside the [place] in Last 30 Days - Family History Known Family History: Positive: Cardiac Disease, Diabetes, Other - NEGATIVE FOR CANCER - Social History Alcohol Use: None Hx Substance Use: No Substance Use Type: Reports: None Hx Tobacco Use: Yes Smoking Status (MU): Former Smoker Type: Cigarettes Amount Used/How Often: 2 PACK/DAY Length of Time of Smoking/Using Tobacco: 45 Have You Smoked in the Last Year: No Review of Systems Positive: Other - Blood sugar at 39 this AM. Negative: Fever Positive: Cough - in the last few days Positive: Weakness - generalized All Other Systems Reviewed And Are Negative: Yes Physical Exam - Summary Physical Exam Summary: VITAL SIGNS: Reviewed. GENERAL: Patient is a well-developed and nourished male who is lying comfortable in the stretcher. Patient is not in any acute respiratory distress. HEAD AND FACE: No signs of trauma. No ecchymosis, hematomas or skull depressions. No sinus tenderness. EYES: PERRLA, EOMI x 2, No injected conjunctiva, no nystagmus. EARS: Hearing grossly intact. Ear canals and tympanic membranes are within normal limits. MOUTH: Oropharynx within normal limits. NECK: Supple, trachea is midline, no adenopathy, no JVD, no carotid bruit, no c- spine tenderness, neck with full ROM. CHEST: Symmetric, no tenderness at palpation LUNGS: Clear to auscultation bilaterally. No wheezing or crackles. CVS: Regular rate and rhythm, S1 and S2 present, no murmurs or gallops appreciated. ABDOMEN: Soft, non-tender. No signs of distention. No rebound no guarding, and no masses palpated. Bowel sounds are normal. EXTREMITIES: FROM in all major joints, no edema, no cyanosis or clubbing. NEURO: Alert and oriented x 3. No acute neurological deficits. Speech is normal and follows commands. SKIN: Warm. He is diaphoretic. Triage Information Reviewed: Yes Vital Signs On Initial Exam: Initial Vitals BP 141/66 07/19/17 09:40 Vital Signs Reviewed: Yes - [place] Coma Scale Coma Scale Total: 15 Diagnostics - Vital Signs Vital Signs Temp Pulse Resp BP Pulse Ox 07/19/17 09:46 96.7 F 89 15 141/66 96 07/19/17 09:43 90 96 07/19/17 09:40 141/66 - Laboratory Result Diagrams: 07/19/17 10:13 07/19/17 10:13 Lab Statement: Any lab studies that have been ordered have been reviewed, and results considered in the medical decision making process. - Radiology CXR Xray Interpretation: No Acute Changes - Hyperinflation with chronic interstitial changes. ED physician has reviewed this report and agrees. Radiology Interpretation Completed By: Radiologist - EKG 10:05 Cardiac Rate: NL - 78 BPM EKG Rhythm: Atrial Fibrillation EKG Interpretation: RBBB. Diabetic Course/Dx - Course Assessment/Plan: The pt is a 77 y/o M with a Hx of IDDM BIBA c/o low blood sugar at 39. His only complaint is of generalized weakness. He was given 250mL of D10 and his repeat blood sugar is 278. He ate a McMuffin this AM. He took insulin and Lantus this morning. The patient was recently admitted to [facility] – [place] from 07/10/17 to 07/13/17 for PNA and a COPD exacerbation. Pt additionally c/o a cough with phlegm production for the last few days. Pt denies any other complaints at this time. Test results show a WBC of 12.8, potassium of 3.2 for which the patient was given potassium chloride. BUN 27 and creatinine 1.28 are indicative of acute renal insufficiency. CXR shows no pneumonia. Initially, the EMS says the finger stick was 39 and the patient was given D50. The patients sugar went to 279 and after a few minutes the ED finger stick was measured at 47. Therefore, the patient was given a second dose of D5. After the D50, the finger stick measurement went up to 211, although now the patients glucose is back to 50. Therefore, at this time I discussed the case with Dr. Engle who will accept the patient for admission. The patient is hemodynamically stable and alert and oriented x 3. - Diagnoses Provider Diagnoses: Hypoglycemia, Leukocytosis - Physician Notifications Discussed Care Of Patient With: Camilo Engle Time Discussed With Above Provider: 11:40 Instructed by Provider To: Other - I consulted with Dr. Engle, hospitalist, who will admit the patient to [facility] [place]. Discharge - Discharge Plan Condition: Fair Disposition: ADMITTED TO [facility] Referrals: Aadir Han MD [Primary Care Provider] - The documentation as recorded by the Kalpesh chavez Thomas accurately reflects the service I personally performed and the decisions made by Adán marcial Walter, MD.
[2017-07-20] MEDS ORDERED: Nitro Patch/OINT Remove PATCH OFF SCH (21:00)
--- NOTE | 2017-07-21 05:37 | DS ---
DISCHARGE SUMMARY: DATE OF ADMISSION: 07/19/17 DATE OF DISCHARGE: 07/20/17 PRIMARY CARE DOCTOR: Dr. Adair Han. MY ATTENDING WHILE IN THE HOSPITAL: Dr. Shravan Rose * (DICTATED BY LEANNE TOVAR) PRIMARY DISCHARGE DIAGNOSES: 1. Hypoglycemia. 2. Thrush. SECONDARY DISCHARGE DIAGNOSES: 1. Coronary artery disease. 2. Upmbiobo-it-uzqdis mitral regurgitation. 3. Diabetes mellitus type 2. 4. Chronic obstructive pulmonary disease. 5. Hypertension. 6. Hyperlipidemia. 7. Chronic pain. 8. Atrial fibrillation. STUDIES DONE WHILE IN THE HOSPITAL: Chest x-ray from 07/19/17 that has hyperinflation with chronic interstitial changes. Electrocardiogram on shows right bundle branch block. No ST segment changes, normal axis, regular rate and rhythm with no discrete T waves consistent with atrial fibrillation, no other pertinent abnormalities consistent with previous studies. MEDICATIONS AT DISCHARGE: 1. Symbicort 160/4.5 two puffs p.o. b.i.d. 2. Insulin lispro 30 units subcutaneously t.i.d. with sliding scale. 3. Fish oil extra strength 2000 mg p.o. daily. 4. Centrum Silver 50+ Men 1 tab p.o. daily. 5. Albuterol 108 mcg inhaler q.4 hours as needed for wheezing. 6. Saw palmetto 500 mg 1 capsule p.o. daily. 7. Xarelto 20 mg p.o. at bedtime. 8. Potassium chloride 10 mEq p.o. daily. 9. Nitroglycerin 0.2 mg daily. 10. Tylenol 25 mg p.o. daily. 11. Torsemide 20 mg p.o. daily. 12. Valsartan 80 mg p.o. daily. 13. Calcium carbonate 500 mg p.o. t.i.d. 14. Spiriva one capsule inhalation daily. 15. Guaifenesin 1200 mg p.o. b.i.d. 16. Cefdinir 300 mg p.o. b.i.d. 17. Crestor 10 mg p.o. q.p.m. 18. Prednisone 30 mg p.o. daily. 19. Clotrimazole 10 mcg 5 times daily. 20. Prednisone 20 mg p.o. daily. 21. Prednisone 10 mg p.o. daily. New medication on discharge: 1. Clotrimazole 10 mg tablet by mouth 5 times daily x35. Medications discontinued at discharge: 1. Insulin glargine 40 units subcutaneously t.i.d. HOSPITAL COURSE: This is a brief summary of the patient's presentation. For more details, please see the history and physical from Nilay Neves on . In brief, the patient is a 77-year-old male who was recently discharged from the hospital with pneumonia and is still taking cefdinir and steroid taper. The patient took his normal dose of 40 units of Lantus this morning, went to his job and then had to leave early and had altered mental status and weakness. The patient's blood sugar in the emergency department was 39, which responded to D50 but then it decreased back down again to the 50s a couple of times asymptomatically. The patient was admitted overnight with q.1 fingersticks, which were all over 100 except for 43 and 54 as described above, later then transitioned to q.4. The patient was noted to be asymptomatic, doing laps around the unit with no shortness of breath and with minimal need for oxygen similar to his routine at home, occasionally requiring 2 L of oxygen. The patient was ready for discharge this morning and was asymptomatic with no acute complaints overnight. PHYSICAL EXAM ON DAY OF DISCHARGE: General: The patient is a 77-year-old male who appears stated age and sitting comfortably on the bed, in no acute distress. Vital Signs: On 07/20/17 at 07:51, temperature 97.6, pulse rate of 97, respiratory rate 18, oxygen saturation 98% on room air, blood pressure 132/ 75. HEENT: Head normocephalic, atraumatic. Sclerae anicteric. No conjunctival injection. Mucous membranes moist. There are plaques on the patient's mouth that are not scrapable, consistent with thrush. The patient states that his throat hurts when pressed with a tongue depressor. Neck: Supple, nontender. No lymphadenopathy. No carotid bruits auscultated. Cardiac : Irregularly irregular rhythm, pulse rate around 80 to 100. Grade 2/6 murmur heard best at the second intercostal space at the right upper sternal border, grade 2/6 holosystolic murmur heard best at the apex. Respiratory: Clear to auscultation bilaterally, mildly decreased breath sounds. Genitourinary: No suprapubic tenderness or CVA tenderness. Abdomen: Slightly distended, similar with exam and previous hospitalization. Bowel sounds present and normoactive in all 4 quadrants. No hepatosplenomegaly. No abdominal bruits auscultated. Skin: Clean, dry, and intact. No rashes. Psychiatric: The patient is euthymic and cooperative. Neuro: Cranial nerves II through XII grossly intact. Gait normal. No decreased strength or focal deficits. LABORATORY DATA: On day of discharge, white blood cell count 15.4, hemoglobin 13.9, INR 1.59. Sodium 136, potassium 4.0, chloride 103, carbon dioxide 27, anion gap 6, BUN 23, creatinine 1.3, glucose 107. Urine was benign on day of discharge. On day of admission, influenza A and B were negative. DISCHARGE PLAN: The patient will be discharged home with a presumptive diagnosis of iatrogenic hypoglycemia from too high dose of Lantus. The patient was on 120 units subcutaneous daily, which is incredibly high. He had been on this dose for 2 months. It is entirely possible that his insulin need has changed due to numerous factors. The patient has no other explanation or laboratory abnormality to explain his hypoglycemia. The patient will resume sliding scale insulin at home with mealtime coverage and will follow up with his primary care doctor to reintroduce basal dosing based on sliding scale insulin usage at home. ACTIVITY: As tolerated. DIET: Consistent carbohydrate. TIME SPENT: Approximately 45 minutes was spent on this discharge, 30 of which was spent [id number] with the patient obtaining history and physical and discussing treatment plans. LEANNE TOVAR [id number]/[facility] #: [id number] DEANNE
[2017-07-21] MEDS ORDERED: predniSONE TAB* 20 MG PO SCH (09:00)
[2017-07-24] MEDS ORDERED: predniSONE TAB* 10 MG PO SCH (09:00)
== END 2017-07-20 11:30 | disposition home or self-care (01) ==
LOC: ED 09:37 → MED 12:11
PROVIDERS: ADMIT Hospitalist; ATTEND Internal Medicine
DX: E11.649 Type 2 diabetes mellitus with hypoglycemia without coma (principal); Z79.4 Long term (current) use of insulin; B37.9 Candidiasis, unspecified; I25.10 Atherosclerotic heart disease of native coronary artery without angina pectoris; I10 Essential (primary) hypertension; I34.0 Nonrheumatic mitral (valve) insufficiency; J44.9 Chronic obstructive pulmonary disease, unspecified; E78.5 Hyperlipidemia, unspecified; I48.91 Unspecified atrial fibrillation; Z79.01 Long term (current) use of anticoagulants; Z79.899 Other long term (current) drug therapy; R53.1 Weakness; D72.829 Elevated white blood cell count, unspecified; Z87.891 Personal history of nicotine dependence; I45.10 Unspecified right bundle-branch block
CPT/HCPCS: 36415; 71010; 80048; 80053; 81003; 82550; 82553; 83880; 84443; 84484; 85025; 85610; 87040; 87086; 87502; 93005; 94640; 96360; 96361; 99284; A9270-GY; G0378; J7512

== ENCOUNTER 2018-07-07 07:46 | Emergency (ER) | payer MEDICARE, OTHER ==
--- OUTSIDE RECORDS SUMMARY | 2018-07-07 07:54 | XMS REPORT ---
:1940 External Reference #:[id number] Author Organization [email or web address] Address [address] [place] [address] Phone [phone] Care Team Providers Name Role Phone Adair Han MD Primary Care Physician Unavailable Payers Type Date Identification Numbers Payment Provider Subscriber Medicare Primary Effective: Policy Number: Medicare Chepe Regan 2005 [id number] PayID: [id number] [address] [place] [address] Commercial Policy Number: [id number] [employer] Chepe Regan Group Number: [id number] [address] PayID: [id number] [place] [address] Medigap Part B Expires: 2017 Policy Number: [employer] Insurance Chepe Mart [id number] Allan Group Number: [id number] [address] PayID: [id number] [place] [address] Problems Date Description Provider Status Onset: 09/15/2011 Mitral valve disorder Les Kline M.D. Active Onset: 04/10/2012 Coronary arteriosclerosis Les Kline M.D. Active Onset: 04/10/2012 Pure hypercholesterolemia Les Kline M.D. Active Onset: 04/10/2012 Benign essential hypertension Les Kline M.D. Active Onset: 04/10/2012 Right bundle branch block Les Klien M.D. Active Onset: 07/17/2012 Type 2 diabetes mellitus Les Kline M.D. Active Onset: 11/14/2013 Dyspnea [place] [facility] Schedule Active Onset: 04/30/2014 Localized osteoarthrosis Les Kline M.D. Active Onset: 04/30/2014 Pulmonary emphysema Les Kline M.D. Active Onset: 04/30/2014 Diabetes mellitus Les Kline M.D. Active Onset: 10/11/2016 Lumbar radiculopathy Robert Bates M.D. 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 Cigarette Use Former Cigarette Smoker ETOH Use Denies alcohol use ETOH Use Has consumed alcohol in the past Smoking Patient is a former smoker Recreational Drug Use Never Used Drugs Daily Caffeine Consumes on average 4 cups of regular coffee per day Exercise Type/Frequency Exercises regularly Bikes 3 miles daily, weather permitting Allergies, Adverse Reactions, Alerts Date Description Reaction Status Severity Comments 04/08/2009 Amlodipine Besylate active lightheadedness 10/31/2013 Pravastatin leg cramps active 03/29/2016 Inspra dizziness, chest active Mild pain 10/27/2006 NKDA inactive 04/01/2017 Valsartan inactive Medications Medication Date Status Form Strength Qnty SIG Indications Ordering Provider Losartan 06/21/ Active Tablets 25mg 90tab 2 tabs by Patience Voss Potassium 2017 s mouth every , day N.P. Metoprolol 09/22/ Active Tablets 50mg 180ta 1 by mouth Les Tartrate 2016 bs twice a day Katy Kline M.D. Dofetilide 09/22/ Active Capsules 125mcg 180ca 1 by mouth Les 2016 ps twice every F. day Elizabeth Kline Xarelto 04/01/ Active Tablets 20mg 90tab 1 by mouth I48.91 Les Arauz s every day Katy Kline M.D. Rosuvastatin 03/10/ Active Tablets 10mg 90tab 1 tab by Les Calcium 2016 s mouth daily Katy Kline M.D. Proair HFA 10/31/ Active Aerosol 108(90Base 1unit 2 puffs po Les 2013 ) mcg/Act s q4h prn Katy Kline M.D. Humalog 10/31/ Active Solution 100Unit/ML 6unit 30 units Les Mott 2013 s twice daily Katy Kline M.D. Symbicort / Active Aerosol 160-4.5mcg 1unit 2 puff bid Unknown 0000 /Act s Albuterol / Active Nebulizer (2.5mg/3ML 1 vial via Unknown Sulfate 0000 ) 0.083% nebulizer 4 times daily as needed Saw Barton / Active Tablets 540mg 1 tab po Unknown 0000 daily Lantus / Active Solution 100Unit/ML 30units two Unknown 0000 times per day Multivitamin / Active Tablets 1 by mouth Unknown Adult 0000 every day Spiriva / Active Capsules 18mcg 1 unit Unknown Handihaler 0000 inhalation daily Magnesium / Active Tablets 400mg 1 by mouth Unknown 0000 every day Oxygen / Active 2 liters Unknown 0000 via NC at hs Irbesartan 04/24/ Hx Tablets 75mg 90tab 1 by mouth Les 2017 - s every day . 2017 M.D. Tikosyn 09/22/ Hx Capsules 125mcg 180ca 1 by mouth Les 2016 - ps twice a day F. 09/21/ neo2016 M.D. Valsartan 04/27/ Hx Tablets 80mg 90tab 1 by mouth I42.9 Les 2016 - s every day F. 04/24/ 2017 M.D. Torsemide 04/27/ Hx Tablets 20mg 90tab 1 by mouth R06.02 Les 2016 - s every day . 12/22/ neo2017 M.D. Nitro-Dur 04/13/ Hx Patches 0.2mg/HR 30uni 1 patch Les 2016 - 24HR ts every day F. 11/24/ on in the 2017 in the M.D. morning, off in the at night Klor-Con 10 04/01/ Hx Tablets ER 10Meq 30tab 1 tab by Les 2016 s mouth daily F. 11/24/ with Mauser2017 torsemide M.D. Torsemide 03/18/ Hx Tablets 20mg 30tab 1 tab po qd Les 2016 - s F. 04/27/ Eliud2016 M.D. Furosemide 12/09/ Hx Tablets 40mg 90tab 1 by mouth R60.0 Les 2016 - s every day F. 03/18/ as needed Eliud2016 (hold pt M.D. not responding) Vitamin B-12 12/08/ Hx Tablets ER 1000mcg 1 by mouth Unknown ER 2017 - every day 2017 Aldactone 11/23/ Hx Tablets 25mg 90tab 1 by mouth Les 2016 - s every day F. 04/01/ neo2016 M.D. Furosemide 11/15/ Hx Tablets 20mg 30tab 2 tabs by R60.0 Les 2016 mouth as F. 12/09/ directed Maverick2016 M.D. Atenolol 10/19/ Hx Tablets 25mg 180ta 2 by mouth Les 2016 - bs every day F. 09/21/ 2016 M.D. Coreg 09/15/ Hx Tablets 6.25mg 180ta 1 by mouth Les 2015 - bs twice a day F. 10/19/ Maverick2016 M.D. Inspra 03/10/ Hx Tablets 25mg 30tab 1 by mouth I10 Les 2015 - s every day F. 03/29/ Eliud, 2015 M.D. Valsartan 09/18/ Hx Tablets 160mg 180ta 1 by mouth Les 2014 - bs daily (hold F. 03/31/ as of [id number]/17) M.D. Augmentin 09/30/ Hx Tablets 875-125mg 14tab 1 tab by Sam 2013 - s mouth every Young, 09/30/ 12 hours M.D. 2015 Crestor 11/23/ Hx Tablets 10mg 90tab 1 by mouth Les 2013 - s every day F. 03/09/ neo, 2015 M.D. Levemir 10/31/ Hx Solution 100Unit/ML 5unit take 10 Les 2013 - s units sq in F. 10/31/ am Mauser, 2013 M.D. Crestor 05/02/ Hx Tablets 20mg 90tab 1 po qd Other 2012 - s Ordering 11/23/ Provider 2014 Pravachol 08/02/ Hx Tablets 10mg 90tab 1 po qd Les 2011 - s F. 05/02/ Mauser, 2012 M.D. Lipitor 07/17/ Hx Tablets 20mg 1 po at hs Les 2011 - F. 08/02/ starting Mauser, 07.17. M.D. Atacand 06/02/ Hx Tablets 32mg 90tab 1 by mouth Les 2011 - s every day F. 03/29/ (Hold- due Maverickr, 2015 to limited M.D. supply) Glipizide ER 04/10/ Hx Tablets ER 2.5mg 30tab 1 po bid Les 2011 - R s F. 07/17/ Moisesuser, 2011 M.D. Lipitor 04/10/ Hx Tablets 20mg 100ta 1/2 tab po Les 2011 - qhs F. 04/19/ Mauser, 2011 M.D. Atenolol 04/10/ Hx Tablets 25mg 90tab Take 1 Les 2011 - Tablet by F. 09/15/ mouth Mauser, 2016 daily M.D. Lipitor 08/30/ Hx Tablets 20mg 90tab 1 po qhs Les 2010 - s F. 04/10/ Mauser, 2011 M.D. Atacand 05/19/ Hx Tablets 16mg 90tab 2 po qd Les 2009 - s . 06/02/ Mauser, 2011 M.D. Atacand 12/08/ Hx Tablets 16mg 1 po qd Les 2009 - F. 12/08/ Mauser, 2009 M.D. Atacand 12/08/ Hx Tablets 32mg 30tab 1/4 po qd Les 2009 - s . 05/19/ Mauser, 2009 M.D. Atacand 04/09/ Hx Tablets 32mg 90tab 1 po qd Les 2008 - s F. 12/08/ Mauser, 2009 M.D. Aspir-81 04/08/ Hx Tablets DR 81mg 1 po qd Les 2008 - F. 09/21/ Mauser, 2017 M.D. Atacand 04/08/ Hx Tablets 16mg 180ta 2 po qd Les 2008 - bs F. user, 2008 M.D. Amlodipine 12/09/ Hx Tablets 2.5mg 90tab 1 po qd Les Besylate 2008 - s F. user, 2008 M.D. Simvastatin 02/26/ Hx Tablets 40mg 90tab 1 PO QHS Les 2007 - s F. 01/08/ user, 2009 M.D. Simvastatin 12/11/ Hx Tablets 20mg 90tab 1 PO qd Les 2007 - s F. 02/26/ user, 2007 M.D. Simvastatin 10/17/ Hx Tablets 10mg 90tab 1 PO QHS Les 2007 - s F. user, 2007 M.D. Trazodone HCL 07/31/ Hx Tablets 50mg Orally 1-2 Les 2006 - Tabs hs prn . use, 2010 M.D. Muscle 07/31/ Hx pt unsure Les Relaxant 2006 - of name F. -4x/day Eliud, 2008 M.D. Atenolol 07/31/ Hx Tablets 25mg 90tab 1 po qd Id Les 2006 - s # [id number] F. user, 2011 M.D. Atacand 03/08/ Hx Tablets 16mg 90tab 1 PO qd Les 2006 - s F. user, 2008 M.D. Metaglip 03/08/ Hx Tablets 5-500mg prn Les 2006 - elevated bs F. user, 2008 M.D. Aspirin 11/18/ Hx Chewtabs 81mg 1 PO qd Les 2006 - F. 07/31/ usezack, 2006 M.D. Vytorin 11/04/ Hx Tablets 10mg;10 mg 30tab 1 po qd Les 2006 - s F. 10/17/ Mausezack, 2007 M.Karoline. Cardizem CD 11/02/ Hx Capsules 240mg 90cap 1 po qd Les 2006 - s . 11/18/ Mauser, 2006 [place] Norvasc 10/27/ Hx Tablets 5mg 30tab 1 po qd Les 2006 - . 11/02/ Mauser, 2006 [employer] Imdur 10/27/ Hx Tablets 30mg 30tab one po qam Les 2006 - s . Mauser, 2006 Elizabeth Atacand 10/27/ Hx Tablets 16mg 60tab 2 po qd Les 2006 - . Mauser, 2006 Elizabeth Zocor 10/27/ Hx Tablets 20mg one qhs Les 2006 - . user, 2006 Elizabeth Trazodone 10/27/ Hx Tablets 50mg 1 Tab QHS Les 2006 - . Mauser, 2006 Elizabeth Lexapro 10/27/ Hx Tablets 20mg 1 PO qd Les 2006 - . Mauser, 2008 M.DDon Fish Oil 10/27/ Hx 2000mg qd (pt is Les 2006 - taking . 12/05/ 1000mg Mauser, 2018 daily) Elizabeth Dhea 10/27/ Hx 25mg one qd Les 2006 - . Moisesusezack, 2006 MMax Vitamins 10/27/ Hx Caplets 30cap 1 PO qd Les Multiple 2006 - s . Mauser, 2013 M.D. Aspirin 10/27/ Hx Tablets 800mg Les Controlled 2006 - F. Release Mauser, 2006 M.D. Co Q10 10/27/ Hx 150mg one po qd Les 2006 - . Mauser, 2006 M.D. Plavix 10/27/ Hx Tablets 75mg 90tab 1 po qd Les 2006 - s . Mauser, 2006 M.D. Plavix 10/21/ Hx Tablets 75mg 30tab 1 po qd Les 2006 - s F. Mauser, 2006 M.D. Aspirin 10/20/ Hx Tablets 81mg qd Les Enteric Coated 2006 - . 10/21/ Eliud 2006 Elizabeth Atenolol 10/20/ Hx Tablets 50mg 90tab 1 po qd Les 2006. 10/27/ Eliud 2006 Elizabeth Zocor 10/20/ Hx Tablets 10mg 30tab one bid Les 2006. 10/27/ Eliud 2006 Elizabeth Vit E 10/20/ Hx 800Iu one qd Les 2006 - 10/27/ Eliud 2006 Elizabeth Januvia / Hx Tablets 100mg 90tab 1 po qd Unknown 0000 - s 2008 Metformin HCL 00/ Hx Tablets 1000mg 1 po bid Unknown - 2009 Combivent / Hx 1Mont 2 puffs qid Unknown Inhaler 0000 - h prn 2011 Simvastatin /00/ Hx Tablets 20mg 90tab 2 po qhs [facility] s (Dr Interiano FDon 08/30/ increased Eliud, 2010 dose, not M.D. sure when) Metformin HCL 00/ Hx Tablets 1000mg 60tab 1 po bid Unknown 0000 - s 2011 Symbicort 00/ Hx Aerosol 80-4.5mcg/ 90uni 1 puff Unknown 0000 - Act ts inhaled bid 2011 Spiriva 00/ Hx Capsules 18mcg 3mon 1 Unknown Handihaler 0000 - inhalation 10/31/ po qam 2013 Levemir / Hx Solution 100Unit/ML 30uni take 30 Unknown 0000 - ts u-40 u tid 2016 Centrum Silver 00/ Hx Tablets 1 po qd Unknown Ultra Mens 0000 - 2016 Carvedilol 00/ Hx Tablets 6.25mg 1 tab by Unknown 0000 - mouth twice day 2016 [place] 3 00/ Hx Capsules 1000mg 1 tab by Unknown 0000 - mouth daily 2017 Medications Administered in Office Medication Date Status Form Strength Qnty SIG Indications Ordering Provider Inj, Administered Injection Gopal Cortes, 017 DO Scotty 0.1 MG FACC Technetium TC Administered Injection Gopal S. 99M 017 DO Scotty Tetrofosmin, FACC Per Unit Dose Up To 40 Millicuries Depomedrol Administered Injection Rosio 80MG 014 Elizabeth Rogers Depomedrol Administered Injection Rosio 80MG 014 Elizabeth Rogers Depomedrol Administered Injection Rosio 80MG 014 Elizabeth Rogers Vital Signs Date Vital Result Comment 07/03/2018 Height 70 inches 5'10" Weight 210.50 lb with shoes Heart Rate 80 /min BP Systolic 146 mmHg right arm BP Diastolic 66 mmHg right arm BMI (Body Mass Index) 30.2 kg/m2 Ejection Fraction 60-65% Echocardiogram 11/09/17 02/21/2018 Height 70 inches 5'10" Heart Rate 64 /min BP Systolic Sitting 132 mmHg rue lg cuff BP Diastolic Sitting 62 mmHg rue lg cuff BP Systolic Standing 128 mmHg rue lg cuff BP Diastolic Standing 64 mmHg rue lg cuff Respiratory Rate 16 /min Ejection Fraction 60-65% 11/09/2017 echo 12/06/2017 Height 70 inches 5'10" Heart Rate 68 /min BP Systolic Sitting 138 mmHg LA, l cuff BP Diastolic Sitting 68 mmHg LA, l cuff Ejection Fraction 60%-65% echo 11/09/17 11/24/2017 Height 70 inches 5'10" Weight 211.00 lb without shoes Heart Rate 76 /min reg BP Systolic Sitting 160 mmHg Lue lg cuff BP Diastolic Sitting 60 mmHg Lue lg cuff BP Systolic Standing 170 mmHg Lue lg cuff BP Diastolic Standing 66 mmHg Lue lg cuff Respiratory Rate 17 /min BMI (Body Mass Index) 30.3 kg/m2 09/22/2017 Height 70 inches 5'10" Weight 217.00 lb w/shoes Heart Rate 74 /min BP Systolic Sitting 158 mmHg LA lg cuff BP Diastolic Sitting 68 mmHg LA lg cuff BP Systolic Standing 128 mmHg la repeat sitting BP Diastolic Standing 56 mmHg la repeat sitting BMI (Body Mass Index) 31.1 kg/m2 Ejection Fraction 45-50% [place] 05/05/17 04/27/2017 Height 70 inches 5'10" Weight 222.50 lb w/shoes Heart Rate 80 /min BP Systolic Sitting 152 mmHg LA reg cuff BP Diastolic Sitting 86 mmHg LA reg cuff BMI (Body Mass Index) 31.9 kg/m2 Ejection Fraction 55-60% Echo 04/04/17 04/01/2017 Height 70 inches 5'10" Weight 223.75 lb with shoes Heart Rate 78 /min BP Systolic Sitting 136 mmHg LA reg cuff BP Diastolic Sitting 72 mmHg LA reg cuff BMI (Body Mass Index) 32.1 kg/m2 Ejection Fraction 60%-65% echo 11/16/16 03/18/2017 Height 70 inches 5'10" Weight 222.75 lb with shoes Heart Rate 72 /min BP Systolic Sitting 122 mmHg LA reg cuff BP Diastolic Sitting 56 mmHg LA reg cuff BMI (Body Mass Index) 32.0 kg/m2 Ejection Fraction 60% - 65% echo 11/16/16 12/09/2016 Height 70 inches 5'10" Weight 212.00 lb w/shoes Heart Rate 72 /min BP Systolic Sitting 132 mmHg LA lg cuff BP Diastolic Sitting 70 mmHg LA lg cuff BMI (Body Mass Index) 30.4 kg/m2 Ejection Fraction 60-65% Echo 11/16/16 11/15/2016 Height 70 inches 5'10" Weight 216.00 lb Heart Rate 88 /min BP Systolic Sitting 182 mmHg LA< reg BP Diastolic Sitting 72 mmHg LA< reg O2 % BldC Oximetry 9394 % BMI (Body Mass Index) 31.0 kg/m2 Ejection Fraction 55%-60% 11/03/15 echo 10/27/2016 Height 70 inches 5'10" Weight 211.00 lb Heart Rate 62 /min BP Systolic Sitting 150 mmHg BP Diastolic Sitting 78 mmHg Pain Level 4 BMI (Body Mass Index) 30.3 kg/m2 10/11/2016 Height 70 inches 5'10" Weight 211.00 lb Heart Rate 78 /min BP Systolic Sitting 168 mmHg BP Diastolic Sitting 80 mmHg Pain Level 5 BMI (Body Mass Index) 30.3 kg/m2 04/07/2016 Height 70 inches 5'10" Weight 205.50 lb w/shoes Heart Rate 74 /min 82 BP Systolic 135 mmHg home unit BP Diastolic 76 mmHg home unit BP Systolic Sitting 148 mmHg LA reg cuff BP Diastolic Sitting 72 mmHg LA reg cuff BMI (Body Mass Index) 29.5 kg/m2 Ejection Fraction 55-60% Echo 11/03/15 03/10/2016 Height 70 inches 5'10" Weight 209.00 lb with shoes Heart Rate 64 /min BP Systolic 158 mmHg LA lrg cuff BP Diastolic 60 mmHg LA lrg cuff BP Systolic Sitting 148 mmHg la sit repeat BP Diastolic Sitting 62 mmHg la sit repeat BMI (Body Mass Index) 30.0 kg/m2 Ejection Fraction 55% - 60% 10/08/2015 Height 70 inches 5'10" Weight 207.00 lb Heart Rate 78 /min BP Systolic Sitting 120 mmHg LA, regular cuff BP Diastolic Sitting 60 mmHg LA, regular cuff BMI (Body Mass Index) 29.7 kg/m2 Ejection Fraction 55-60% echo 11/14/13 10/01/2015 Heart Rate 72 /min BP Systolic 134 mmHg Ra, regular cuff, sit BP Diastolic 62 mmHg Ra, regular cuff, sit BP Systolic Sitting 132 mmHg LA, regular cuff BP Diastolic Sitting 64 mmHg LA, regular cuff BP Systolic Standing 142 mmHg LA, stand BP Diastolic Standing 70 mmHg LA, stand 10/23/2014 Height 70 inches 5'10" Weight 195.00 lb BMI (Body Mass Index) 28.0 kg/m2 10/21/2014 Height 70 inches 5'10" Weight 195.00 lb Pain Level 0 BMI (Body Mass Index) 28.0 kg/m2 10/07/2014 Height 70 inches 5'10" Weight 195.00 lb Pain Level 0 BMI (Body Mass Index) 28.0 kg/m2 09/30/2014 Height 70 inches 5'10" Weight 195.00 lb Body Temperature 98.4 F BMI (Body Mass Index) 28.0 kg/m2 09/02/2014 Height 70 inches 5'10" Weight 198.00 lb Heart Rate 62 /min BP Systolic 140 mmHg BP Diastolic 68 mmHg BMI (Body Mass Index) 28.4 kg/m2 06/21/2014 Height 70 inches 5'10" Weight 224.00 lb Heart Rate 68 /min BMI (Body Mass Index) 32.1 kg/m2 05/31/2014 Height 70 inches 5'10" Weight 224.00 lb Pain Level 5 BMI (Body Mass Index) 32.1 kg/m2 04/30/2014 Height 70 inches 5'10" Weight 224.00 lb w/shoes Heart Rate 68 /min BP Systolic Sitting 146 mmHg BP Diastolic Sitting 70 mmHg Respiratory Rate 16 /min BMI (Body Mass Index) 32.1 kg/m2 03/27/2014 Height 70 inches 5'10" Weight 215.00 lb Heart Rate 68 /min BP Systolic 170 mmHg BP Diastolic 80 mmHg BMI (Body Mass Index) 30.8 kg/m2 02/18/2014 Height 70 inches 5'10" Weight 212.00 lb Heart Rate 68 /min BP Systolic 135 mmHg BP Diastolic 63 mmHg BMI (Body Mass Index) 30.4 kg/m2 01/18/2014 Height 70 inches 5'10" Weight 212.00 lb Heart Rate 71 /min BP Systolic 146 mmHg BP Diastolic 77 mmHg BMI (Body Mass Index) 30.4 kg/m2 10/31/2013 Height 70 inches 5'10" Weight 207.00 lb Heart Rate 68 /min regular BP Systolic Sitting 130 mmHg BP Diastolic Sitting 60 mmHg Respiratory Rate 16 /min BMI (Body Mass Index) 29.7 kg/m2 10/13/2012 Height 70 inches 5'10" Weight 199.00 lb Heart Rate 74 /min BP Systolic 118 mmHg BP Diastolic 62 mmHg BMI (Body Mass Index) 28.6 kg/m2 07/17/2012 Height 70 inches 5'10" Weight 219.00 lb Heart Rate 69 /min BP Systolic 110 mmHg BP Diastolic 60 mmHg Respiratory Rate 16 /min BMI (Body Mass Index) 31.4 kg/m2 04/10/2012 Height 70 inches 5'10" Weight 210.00 lb Heart Rate 60 /min BP Systolic Sitting 138 mmHg BP Diastolic Sitting 62 mmHg Respiratory Rate 20 /min BMI (Body Mass Index) 30.1 kg/m2 07/07/2011 Height 70 inches 5'10" Weight 210.00 lb Heart Rate 63 /min BP Systolic Sitting 112 mmHg BP Diastolic Sitting 74 mmHg Respiratory Rate 18 /min BMI (Body Mass Index) 30.1 kg/m2 10/30/2010 Height 70 inches 5'10" Weight 205.00 lb Heart Rate 68 /min BP Systolic Sitting 130 mmHg L BP Diastolic Sitting 60 mmHg L BMI (Body Mass Index) 29.4 kg/m2 12/08/2009 Weight 197.00 lb Heart Rate 60 /min BP Systolic Sitting 140 mmHg BP Diastolic Sitting 70 mmHg BP Systolic Standing 140 mmHg BP Diastolic Standing 70 mmHg 12/08/2009 Height 70 inches 5'10" Weight 201.00 lb Heart Rate 64 /min BP Systolic Sitting 124 mmHg BP Diastolic Sitting 74 mmHg BP Systolic Standing 106 mmHg BP Diastolic Standing 60 mmHg BMI (Body Mass Index) 28.8 kg/m2 04/08/2009 Height 70 inches 5'10" Weight 215.00 lb Heart Rate 56 /min BP Systolic Sitting 134 mmHg BP Diastolic Sitting 76 mmHg BMI (Body Mass Index) 30.8 kg/m2 12/09/2008 Height 70 inches 5'10" Weight 215.00 lb Heart Rate 72 /min BP Systolic Sitting 140 mmHg BP Diastolic Sitting 74 mmHg BP Systolic Standing 140 mmHg BP Diastolic Standing 80 mmHg BMI (Body Mass Index) 30.8 kg/m2 12/27/2007 Height 70 inches 5'10" Weight 216.00 lb Heart Rate 80 /min BP Systolic Sitting 150 mmHg L BP Diastolic Sitting 70 mmHg L BMI (Body Mass Index) 31.0 kg/m2 07/31/2007 Height 70 inches 5'10" Heart Rate 80 /min BP Systolic Sitting 146 mmHg BP Diastolic Sitting 72 mmHg 03/08/2007 Height 70 inches 5'10" Weight 210.00 lb Heart Rate 60 /min reg BP Systolic Sitting 136 mmHg home unit does not correlate BP Diastolic Sitting 70 mmHg home unit does not correlate BMI (Body Mass Index) 30.1 kg/m2 01/23/2007 Height 70 inches 5'10" Weight 213.00 lb Heart Rate 71 /min BP Systolic Sitting 146 mmHg BP Diastolic Sitting 80 mmHg BP Systolic Standing 130 mmHg BP Diastolic Standing 80 mmHg BMI (Body Mass Index) 30.6 kg/m2 11/18/2006 Height 70 inches 5'10" Weight 213.00 lb Heart Rate 68 /min BP Systolic Sitting 140 mmHg BP Diastolic Sitting 78 mmHg Respiratory Rate 18 /min BMI (Body Mass Index) 30.6 kg/m2 10/27/2006 Height 70 inches 5'10" Weight 212.00 lb Heart Rate 67 /min BP Systolic Sitting 134 mmHg L 140/70 R BP Diastolic Sitting 70 mmHg L 140/70 R BP Systolic Standing 124 mmHg R BP Diastolic Standing 60 mmHg R BMI (Body Mass Index) 30.4 kg/m2 Results Test Date Test Result H/L Range Note CBC Auto Diff 05/03/2018 White Blood Count 7.4 10^3/uL 3.5-10.8 Red Blood Count 4.51 10^6/uL 4.00-5.40 Hemoglobin 13.5 g/dL Low 14.0-18.0 Hematocrit 39 % Low 42-52 Mean Corpuscular Volume 87 fL 80-94 Mean Corpuscular Hemoglobin 30 pg 27-31 Mean Corpuscular HGB Conc 35 g/dL 31-36 Red Cell Distribution Width 15 % 10.5-15 Platelet Count 195 10^3/uL 150-450 Mean Platelet Volume 7.5 um3 7.4-10.4 Abs Neutrophils 5.7 10^3/uL 1.5-7.7 Abs Lymphocytes 1.1 10^3/uL 1.0-4.8 Abs Monocytes 0.4 10^3/uL 0-0.8 Abs Eosinophils 0.1 10^3/uL 0-0.6 Abs Basophils 0 10^3/uL 0-0.2 Abs Nucleated RBC 0 10^3/uL Granulocyte % 77.5 % 38-83 Lymphocyte % 15.1 % Low 25-47 Monocyte % 4.9 % 0-7 Eosinophil % 1.9 % 0-6 Basophil % 0.6 % 0-2 Nucleated Red Blood Cells % 0.1 Comp Metabolic Panel 05/03/2018 Sodium 140 mmol/L 135-145 Potassium 4.6 mmol/L 3.5-5.0 Chloride 104 mmol/L 101-111 Co2 Carbon Dioxide 29 mmol/L 22-32 Anion Gap 7 mmol/L 2-11 Glucose 223 mg/dL High 70-100 Blood Urea Nitrogen 13 mg/dL 6-24 Creatinine 1.09 mg/dL 0.67-1.17 BUN/Creatinine Ratio 11.9 8-20 Calcium 9.2 mg/dL 8.6-10.3 Total Protein 6.2 g/dL Low 6.4-8.9 Albumin 4.2 g/dL 3.2-5.2 Globulin 2.0 g/dL 2-4 Albumin/Globulin Ratio 2.1 1-3 Total Bilirubin 1.50 mg/dL High 0.2-1.0 Alkaline Phosphatase 63 U/L 34-104 Alt 19 U/L 7-52 Ast 17 U/L 13-39 Egfr Non- 65.3 >60 Egfr 79.0 >60 1 Lipid Profile (Trig/Chol/HDL) 05/03/2018 Triglycerides 165 mg/dL 2 Cholesterol 131 mg/dL 3 HDL Cholesterol 39.1 mg/dL 4 LDL Cholesterol 59 mg/dL 5 Laboratory test finding 05/03/2018 Magnesium 2.1 mg/dL 1.9-2.7 Creatine Kinase(CK) 86 U/L 10-223 Laboratory test finding 02/21/2018 Magnesium <pending> Lipid Panel - [facility] 02/21/2018 Creatine Kinase(CK) <pending> Basic Metabolic Panel 11/25/2017 Sodium 135 mmol/L 133-145 Potassium 4.3 mmol/L 3.5-5.0 Chloride 100 mmol/L Low 101-111 Co2 Carbon Dioxide 27 mmol/L 22-32 Anion Gap 8 mmol/L 2-11 Glucose 230 mg/dL High 70-100 Blood Urea Nitrogen 19 mg/dL 6-24 Creatinine 1.25 mg/dL High 0.67-1.17 BUN/Creatinine Ratio 15.2 8-20 Calcium 9.4 mg/dL 8.6-10.3 Egfr Non- 55.9 >60 Egfr 71.8 >60 6 Laboratory test finding 11/25/2017 Magnesium 2.0 mg/dL 1.9-2.7 B-Type Natriuretic Peptide BNP 41 pg/mL 7 Laboratory test finding 11/24/2017 Magnesium <pending> Laboratory test finding 11/24/2017 B-Type Natriuretic Peptide <pending> BNP Lipid Panel - [facility] 10/17/2017 Creatine Kinase(CK) 182 U/L 10-223 8 Comp Metabolic Panel 10/17/2017 Sodium 137 mmol/L 133-145 Potassium 4.2 mmol/L 3.5-5.0 Chloride 101 mmol/L 101-111 Co2 Carbon Dioxide 28 mmol/L 22-32 Anion Gap 8 mmol/L 2-11 Glucose 148 mg/dL High 70-100 Blood Urea Nitrogen 15 mg/dL 6-24 Creatinine 1.26 mg/dL High 0.67-1.17 BUN/Creatinine Ratio 11.9 8-20 Calcium 9.5 mg/dL 8.6-10.3 Total Protein 6.7 g/dL 6.4-8.9 Albumin 4.4 g/dL 3.2-5.2 Globulin 2.3 g/dL 2-4 Albumin/Globulin Ratio 1.9 1-3 Total Bilirubin 1.50 mg/dL High 0.2-1.0 Alkaline Phosphatase 54 U/L 34-104 Alt 24 U/L 7-52 Ast 22 U/L 13-39 Egfr Non- 55.4 >60 Egfr 71.2 >60 9 Lipid Profile (Trig/Chol/HDL) 10/17/2017 Triglycerides 159 mg/dL 10 Cholesterol 138 mg/dL 11 HDL Cholesterol 44.3 mg/dL 12 LDL Cholesterol 62 mg/dL 13 Laboratory test finding 10/17/2017 Magnesium 2.1 mg/dL 1.9-2.7 14 CBC Auto Diff 10/17/2017 White Blood Count 8.1 10^3/uL 3.5-10.8 Red Blood Count 4.58 10^6/uL 4.0-5.4 Hemoglobin 13.9 g/dL Low 14.0-18.0 Hematocrit 41 % Low 42-52 Mean Corpuscular Volume 89 fL 80-94 Mean Corpuscular Hemoglobin 30 pg 27-31 Mean Corpuscular HGB Conc 34 g/dL 31-36 Red Cell Distribution Width 14 % 10.5-15 Platelet Count 221 10^3/uL 150-450 Mean Platelet Volume 8 um3 7.4-10.4 Abs Neutrophils 5.6 10^3/uL 1.5-7.7 Abs Lymphocytes 1.8 10^3/uL 1.0-4.8 Abs Monocytes 0.5 10^3/uL 0-0.8 Abs Eosinophils 0.1 10^3/uL 0-0.6 Abs Basophils 0.1 10^3/uL 0-0.2 Abs Nucleated RBC 0 10^3/uL Granulocyte % 69.8 % 38-83 Lymphocyte % 21.8 % Low 25-47 Monocyte % 6.1 % 1-9 Eosinophil % 1.7 % 0-6 Basophil % 0.6 % 0-2 Nucleated Red Blood Cells % 0 Urinalysis Profile 07/10/2017 Urine Color Yellow Urine Appearance Clear Urine Specific [place] 1.019 1.010-1.030 Urine pH 5.0 5-9 Urine Urobilinogen Negative Negative Urine Ketones Negative Negative Urine Protein Negative Negative Urine Leukocytes Negative Negative Urine Blood Negative Negative Urine Nitrite Negative Negative Urine Bilirubin Negative Negative Urine Glucose Negative Negative Laboratory test finding 07/10/2017 Legionella Antigen By Eia SEE RESULT BELOW 15 S.Pneumonia Urine Antigen SEE RESULT BELOW 16 Rapid Influenza A & B 07/10/2017 Influenza A Molecular NEGATIVE Negative 17 Molecular Influenza B Molecular NEGATIVE Negative Laboratory test 07/10/2017 Rapid Influenza A B SEE RESULT BELOW 18 finding Antigen Arterial Blood Gas 07/09/2017 PH Arterial 7.44 7.35-7.45 Pco2 Arterial 36 mmHg 35-45 Po2 Arterial 154 mmHg High 80-100 O2 Saturation Arterial 98.1 % High 95-98 Base Excess Arterial 0.7 -2.0-2.0 19 Hco3 Arterial 25.4 mmol/L 19-31 CBC Auto Diff 07/09/2017 White Blood Count 16.7 10^3/uL High 3.5-10.8 Red Blood Count 4.63 10^6/uL 4.0-5.4 Hemoglobin 13.9 g/dL Low 14.0-18.0 Hematocrit 41 % Low 42-52 Mean Corpuscular Volume 88 fL 80-94 Mean Corpuscular Hemoglobin 30 pg 27-31 Mean Corpuscular HGB Conc 34 g/dL 31-36 Red Cell Distribution Width 15 % 10.5-15 Platelet Count 228 10^3/uL 150-450 Mean Platelet Volume 7 um3 Low 7.4-10.4 Abs Neutrophils 14.9 10^3/uL High 1.5-7.7 Abs Lymphocytes 1.1 10^3/uL 1.0-4.8 Abs Monocytes 0.4 10^3/uL 0-0.8 Abs Eosinophils 0.1 10^3/uL 0-0.6 Abs Basophils 0.1 10^3/uL 0-0.2 Abs Nucleated RBC 0.01 10^3/uL Granulocyte % 89.3 % High 38-83 Lymphocyte % 6.8 % Low 25-47 Monocyte % 2.5 % 1-9 Eosinophil % 0.7 % 0-6 Basophil % 0.7 % 0-2 Nucleated Red Blood Cells % 0.1 Comp Metabolic Panel 07/09/2017 Sodium 139 mmol/L 133-145 Chloride 102 mmol/L 101-111 Co2 Carbon Dioxide 29 mmol/L 22-32 Glucose 95 mg/dL 70-100 Blood Urea Nitrogen 20 mg/dL 6-24 Creatinine 1.31 mg/dL High 0.67-1.17 BUN/Creatinine Ratio 15.3 8-20 Calcium 9.1 mg/dL 8.6-10.3 Total Protein 6.8 g/dL 6.4-8.9 Albumin 4.2 g/dL 3.2-5.2 Globulin 2.6 g/dL 2-4 Albumin/Globulin Ratio 1.6 1-3 Total Bilirubin 1.00 mg/dL 0.2-1.0 Alkaline Phosphatase 48 U/L 34-104 Alt 24 U/L 7-52 Egfr Non- 52.9 >60 Egfr 68.1 >60 20 Potassium 3.9 mmol/L 3.5-5.0 Anion Gap 8 mmol/L 2-11 Ast 22 U/L 13-39 Laboratory test finding 07/09/2017 Troponin-I (TnI) 0.01 ng/mL <0.04 B-Type Natriuretic Peptide BNP 92 pg/mL 21 Laboratory test finding 07/09/2017 Partial Thrombo Time 32.6 seconds 26.0 -36.3 PTT Hemoglobin A1c (Glyco HGB) 5.0 % 4.0-5.6 22 Inr/Protime 07/09/2017 Inr 1.43 High 0.89-1.11 Laboratory test finding 05/04/2017 B-Type Natriuretic 113 pg/mL High 23 Peptide BNP Magnesium 2.0 mg/dL 1.9-2.7 24 Basic Metabolic Panel 05/04/2017 Sodium 137 mmol/L 133-145 Potassium 4.1 mmol/L 3.5-5.0 Chloride 101 mmol/L 101-111 Co2 Carbon Dioxide 28 mmol/L 22-32 Anion Gap 8 mmol/L 2-11 Glucose 213 mg/dL High 70-100 Blood Urea Nitrogen 18 mg/dL 6-24 Creatinine 1.29 mg/dL High 0.67-1.17 BUN/Creatinine Ratio 14.0 8-20 Calcium 8.9 mg/dL 8.6-10.3 Egfr Non- 53.9 >60 Egfr 69.3 >60 25 Inr/Protime 04/15/2017 Inr 1.62 High 0.89-1.11 Basic Metabolic Panel 04/15/2017 Sodium 136 mmol/L 133-145 Potassium 4.2 mmol/L 3.5-5.0 Chloride 101 mmol/L 101-111 Co2 Carbon Dioxide 27 mmol/L 22-32 Anion Gap 8 mmol/L 2-11 Glucose 121 mg/dL High 70-100 Blood Urea Nitrogen 18 mg/dL 6-24 Creatinine 1.32 mg/dL High 0.67-1.17 BUN/Creatinine Ratio 13.6 8-20 Calcium 9.1 mg/dL 8.6-10.3 Egfr Non- 52.5 >60 Egfr 67.5 >60 26 CBC Auto Diff 04/15/2017 White Blood Count 8.5 10^3/uL 3.5-10.8 Red Blood Count 4.23 10^6/uL 4.0-5.4 Hemoglobin 13.1 g/dL Low 14.0-18.0 Hematocrit 39 % Low 42-52 Mean Corpuscular Volume 93 fL 80-94 Mean Corpuscular Hemoglobin 31 pg 27-31 Mean Corpuscular HGB Conc 33 g/dL 31-36 Red Cell Distribution Width 15 % 10.5-15 Platelet Count 213 10^3/uL 150-450 Mean Platelet Volume 7 um3 Low 7.4-10.4 Abs Neutrophils 6.5 10^3/uL 1.5-7.7 Abs Lymphocytes 1.5 10^3/uL 1.0-4.8 Abs Monocytes 0.4 10^3/uL 0-0.8 Abs Eosinophils 0.1 10^3/uL 0-0.6 Abs Basophils 0 10^3/uL 0-0.2 Abs Nucleated RBC 0 10^3/uL Granulocyte % 76.2 % 38-83 Lymphocyte % 17.1 % Low 25-47 Monocyte % 4.4 % 1-9 Eosinophil % 1.7 % 0-6 Basophil % 0.6 % 0-2 Nucleated Red Blood Cells % 0 Cath Panel 04/15/2017 Partial Thrombo Time 38.8 seconds High 26.0-36.3 PTT Laboratory test finding 03/31/2017 Magnesium 2.2 mg/dL 1.9-2.7 Basic Metabolic Panel 03/31/2017 Sodium 136 mmol/L 133-145 Potassium 4.1 mmol/L 3.5-5.0 Chloride 103 mmol/L 101-111 Co2 Carbon Dioxide 26 mmol/L 22-32 Anion Gap 7 mmol/L 2-11 Glucose 231 mg/dL High 70-100 Blood Urea Nitrogen 20 mg/dL 6-24 Creatinine 1.13 mg/dL 0.67-1.17 BUN/Creatinine Ratio 17.7 8-20 Calcium 8.8 mg/dL 8.6-10.3 Egfr Non- 62.9 >60 Egfr 80.9 >60 27 Basic Metabolic Panel 03/24/2017 Sodium 136 mmol/L 133-145 Potassium 4.6 mmol/L 3.5-5.0 Chloride 101 mmol/L 101-111 Co2 Carbon Dioxide 27 mmol/L 22-32 Anion Gap 8 mmol/L 2-11 Glucose 184 mg/dL High 70-100 Blood Urea Nitrogen 24 mg/dL 6-24 Creatinine 1.38 mg/dL High 0.67-1.17 BUN/Creatinine Ratio 17.4 8-20 Calcium 9.2 mg/dL 8.6-10.3 Egfr Non- 50.0 >60 Egfr 64.3 >60 28 Laboratory test finding 03/24/2017 Magnesium 2.1 mg/dL 1.9-2.7 29 Laboratory test finding 03/18/2017 B-Type Natriuretic Peptide 46 pg/mL 30 BNP Basic Metabolic Panel 03/18/2017 Sodium 136 mmol/L 133-145 Potassium 4.8 mmol/L 3.5-5.0 Chloride 102 mmol/L 101-111 Co2 Carbon Dioxide 26 mmol/L 22-32 Anion Gap 8 mmol/L 2-11 Glucose 124 mg/dL High 70-100 Blood Urea Nitrogen 37 mg/dL High 6-24 Creatinine 1.70 mg/dL High 0.67-1.17 BUN/Creatinine Ratio 21.8 High 8-20 Calcium 9.3 mg/dL 8.6-10.3 Egfr Non- 39.3 >60 Egfr 50.5 >60 31 Laboratory test finding 03/18/2017 Magnesium 2.4 mg/dL 1.9-2.7 CBC Auto Diff 03/18/2017 White Blood Count 10.1 10^3/uL 3.5-10.8 Red Blood Count 4.14 10^6/uL 4.0-5.4 Hemoglobin 12.6 g/dL Low 14.0-18.0 Hematocrit 37 % Low 42-52 Mean Corpuscular Volume 89 fL 80-94 Mean Corpuscular Hemoglobin 30 pg 27-31 Mean Corpuscular HGB Conc 34 g/dL 31-36 Red Cell Distribution Width 15 % 10.5-15 Platelet Count 201 10^3/uL 150-450 Mean Platelet Volume 7 um3 Low 7.4-10.4 Abs Neutrophils 7.3 10^3/uL 1.5-7.7 Abs Lymphocytes 1.8 10^3/uL 1.0-4.8 Abs Monocytes 0.8 10^3/uL 0-0.8 Abs Eosinophils 0.2 10^3/uL 0-0.6 Abs Basophils 0.1 10^3/uL 0-0.2 Abs Nucleated RBC 0 10^3/uL Granulocyte % 72.4 % 38-83 Lymphocyte % 17.4 % Low 25-47 Monocyte % 7.6 % 1-9 Eosinophil % 1.9 % 0-6 Basophil % 0.7 % 0-2 Nucleated Red Blood Cells % 0 Basic Metabolic Panel 12/17/2016 Sodium 133 mmol/L 133-145 Potassium 4.3 mmol/L 3.5-5.0 Chloride 100 mmol/L Low 101-111 Co2 Carbon Dioxide 27 mmol/L 22-32 Anion Gap 6 mmol/L 2-11 Glucose 243 mg/dL High 70-100 Blood Urea Nitrogen 20 mg/dL 6-24 Creatinine 1.13 mg/dL 0.67-1.17 BUN/Creatinine Ratio 17.7 8-20 Calcium 9.1 mg/dL 8.6-10.3 Egfr Non- 62.9 >60 Egfr 80.9 >60 32 Laboratory test finding 11/12/2016 B-Type Natriuretic 121 pg/mL High 33 Peptide BNP Basic Metabolic Panel 11/12/2016 Sodium 138 mmol/L 133-145 Potassium 4.4 mmol/L 3.5-5.0 Chloride 103 mmol/L 101-111 Co2 Carbon Dioxide 26 mmol/L 22-32 Anion Gap 9 mmol/L 2-11 Glucose 177 mg/dL High 70-100 Blood Urea Nitrogen 15 mg/dL 6-24 Creatinine 1.11 mg/dL 0.67-1.17 BUN/Creatinine Ratio 13.5 8-20 Calcium 9.2 mg/dL 8.6-10.3 Egfr Non- 64.2 >60 Egfr 82.6 >60 34 CBC Auto Diff 11/12/2016 White Blood Count 8.7 10^3/uL 3.5-10.8 Red Blood Count 3.85 10^6/uL Low 4.0-5.4 Hemoglobin 11.8 g/dL Low 14.0-18.0 Hematocrit 34 % Low 42-52 Mean Corpuscular Volume 89 fL 80-94 Mean Corpuscular Hemoglobin 31 pg 27-31 Mean Corpuscular HGB Conc 35 g/dL 31-36 Red Cell Distribution Width 14 % 10.5-15 Platelet Count 228 10^3/uL 150-450 Mean Platelet Volume 7 um3 Low 7.4-10.4 Abs Neutrophils 6.7 10^3/uL 1.5-7.7 Abs Lymphocytes 1.2 10^3/uL 1.0-4.8 Abs Monocytes 0.6 10^3/uL 0-0.8 Abs Eosinophils 0.2 10^3/uL 0-0.6 Abs Basophils 0.1 10^3/uL 0-0.2 Abs Nucleated RBC 0 10^3/uL Granulocyte % 76.7 % 38-83 Lymphocyte % 14.0 % Low 25-47 Monocyte % 6.7 % 1-9 Eosinophil % 1.8 % 0-6 Basophil % 0.8 % 0-2 Nucleated Red Blood Cells % 0 Laboratory test finding 11/12/2016 TSH (Thyroid Stim 2.69 mcIU/mL 0.34- 5.60 Horm) Iron & Iron Binding 11/12/2016 Iron 52 g/dL 50-212 Capacity Unsaturated Iron Binding 263 g/dL Total Iron Binding Capacity 315 g/dL 250-450 % Iron Saturation 17 % 15-55 Laboratory test finding 10/11/2016 Blood Urea Nitrogen BUN 15 mg/dL 6-24 35 Creatinine 10/11/2016 Creatinine 1.05 mg/dL 0.67-1.17 Egfr Non- 68.5 >60 Egfr 88.1 >60 36 Laboratory test finding 03/30/2016 Magnesium 1.8 mg/dL Low 1.9-2.7 37 CBC Auto Diff 03/30/2016 White Blood Count 7.8 10^3/uL 3.5-10.8 Red Blood Count 4.63 10^6/uL 4.0-5.4 Hemoglobin 13.7 g/dL Low 14.0-18.0 Hematocrit 41 % Low 42-52 Mean Corpuscular Volume 88 fL 80-94 Mean Corpuscular Hemoglobin 30 pg 27-31 Mean Corpuscular HGB Conc 34 g/dL 31-36 Red Cell Distribution Width 14 % 10.5-15 Platelet Count 206 10^3/uL 150-450 Mean Platelet Volume 7 um3 Low 7.4-10.4 Abs Neutrophils 5.9 10^3/uL 1.5-7.7 Abs Lymphocytes 1.3 10^3/uL 1.0-4.8 Abs Monocytes 0.4 10^3/uL 0-0.8 Abs Eosinophils 0.1 10^3/uL 0-0.6 Abs Basophils 0.1 10^3/uL 0-0.2 Abs Nucleated RBC 0.04 10^3/uL Granulocyte % 75.0 % 38-83 Lymphocyte % 16.2 % Low 25-47 Monocyte % 5.6 % 1-9 Eosinophil % 1.3 % 0-6 Basophil % 1.9 % 0-2 Nucleated Red Blood Cells % 0.5 Laboratory test finding 03/30/2016 B-Type Natriuretic Peptide BNP 54 pg/mL 38 Lipid Profile 03/30/2016 Triglycerides 99 mg/dL 39 (Trig/Chol/HDL) Cholesterol 133 mg/dL 40 HDL Cholesterol 40.3 mg/dL 41 LDL Cholesterol 73 mg/dL 42 Comp Metabolic Panel 03/30/2016 Sodium 137 mmol/L 133-145 Potassium 4.2 mmol/L 3.5-5.0 Chloride 104 mmol/L 101-111 Co2 Carbon Dioxide 25 mmol/L 22-32 Anion Gap 8 mmol/L 2-11 Glucose 135 mg/dL High 70-100 Blood Urea Nitrogen 14 mg/dL 6-24 Creatinine 0.96 mg/dL 0.67-1.17 BUN/Creatinine Ratio 14.6 8-20 Calcium 9.1 mg/dL 8.6-10.3 Total Protein 6.1 g/dL Low 6.4-8.9 Albumin 4.2 g/dL 3.2-5.2 Globulin 1.9 g/dL Low 2-4 Albumin/Globulin Ratio 2.2 1-3 Total Bilirubin 1.20 mg/dL High 0.2-1.0 Alkaline Phosphatase 48 U/L 34-104 Alt 25 U/L 7-52 Ast 19 U/L 13-39 Egfr Non- 76.2 >60 Egfr 97.9 >60 43 Lipid Panel - [facility] 03/30/2016 Creatine Kinase(CK) 126 U/L 10-223 44 Lipid Panel - [facility] 10/14/2015 Creatine Kinase 89 U/L 10-223 45 Comp Metabolic Panel 10/14/2015 Sodium 137 mmol/L 133-145 Potassium 4.1 mmol/L 3.5-5.0 Chloride 102 mmol/L 101-111 Co2 Carbon Dioxide 28 mmol/L 22-32 Anion Gap 7 mmol/L 2-11 Glucose 121 mg/dL High 70-100 Blood Urea Nitrogen 9 mg/dL 6-24 Creatinine 0.94 mg/dL 0.67-1.17 BUN/Creatinine Ratio 9.6 8-20 Calcium 9.3 mg/dL 8.6-10.3 Total Protein 6.2 g/dL Low 6.4-8.9 Albumin 4.3 g/dL 3.2-5.2 Globulin 1.9 g/dL Low 2-4 Albumin/Globulin Ratio 2.3 1-3 Total Bilirubin 1.30 mg/dL High 0.2-1.0 Alkaline Phosphatase 46 U/L 34-104 Alt 18 U/L 7-52 Ast 16 U/L 13-39 Egfr Non- 78.0 >60 Egfr 100.3 >60 46 Lipid Profile (Trig/Chol/HDL) 10/14/2015 Triglycerides 97 mg/dL 47 Cholesterol 117 mg/dL 48 HDL Cholesterol 36.8 mg/dL 49 LDL Cholesterol 61 mg/dL 50 Laboratory test finding 10/14/2015 B-Type Natriuretic 75 pg/mL 51 Peptide BNP CBC Auto Diff 10/14/2015 White Blood Count 9.5 10^3/uL 3.5-10.8 Red Blood Count 4.77 10^6/uL 4.0-5.4 Hemoglobin 14.4 g/dL 14.0-18.0 Hematocrit 42 % 42-52 Mean Corpuscular Volume 87 fL 80-94 Mean Corpuscular Hemoglobin 30 pg 27-31 Mean Corpuscular HGB Conc 35 g/dL 31-36 Red Cell Distribution Width 15 % 10.5-15 Platelet Count 239 10^3/uL 150-450 Mean Platelet Volume 7 um3 Low 7.4-10.4 Abs Neutrophils 6.9 10^3/uL 1.5-7.7 Abs Lymphocytes 1.8 10^3/uL 1.0-4.8 Abs Monocytes 0.6 10^3/uL 0-0.8 Abs Eosinophils 0.1 10^3/uL 0-0.6 Abs Basophils 0.1 10^3/uL 0-0.2 Abs Nucleated RBC 0.01 10^3/uL Granulocyte % 72.3 % 38-83 Lymphocyte % 19.3 % Low 25-47 Monocyte % 6.2 % 1-9 Eosinophil % 1.5 % 0-6 Basophil % 0.7 % 0-2 Nucleated Red Blood Cells % 0.1 Laboratory test finding 10/14/2015 Magnesium 2.0 mg/dL 1.9-2.7 52 Laboratory test finding 09/30/2014 C Reactive Protein 4.17 mg/L < 5.00 53 CBC Auto Diff 09/30/2014 White Blood Count 9.3 10^3/uL 4.8-10.8 Red Blood Count 4.59 10^6/uL 4.0-5.4 Hemoglobin 14.1 g/dL 14.0-18.0 Hematocrit 41 % Low 42-52 Mean Corpuscular Volume 90 fL 80-94 Mean Corpuscular Hemoglobin 31 pg 27-31 Mean Corpuscular HGB Conc 34 g/dL 31-36 Red Cell Distribution Width 14 % 10.5-15 Platelet Count 177 10^3/uL 150-450 Mean Platelet Volume 8 um3 7.4-10.4 Abs Neutrophils 7.5 10^3/uL 1.5-7.7 Abs Lymphocytes 1.1 10^3/uL 1.0-4.8 Abs Monocytes 0.4 10^3/uL 0-0.8 Abs Eosinophils 0.1 10^3/uL 0-0.6 Abs Basophils 0.1 10^3/uL 0-0.2 Abs Nucleated RBC 0 10^3/uL Granulocyte % 81.4 % 38-83 Lymphocyte % 12.3 % Low 25-47 Monocyte % 4.6 % 1-9 Eosinophil % 1.1 % 0-6 Basophil % 0.6 % 0-2 Nucleated Red Blood Cells % 0 Laboratory test 09/30/2014 Erythrocyte Sed Rate 16 mm/Hr 0-40 finding Body Fluid C&S 09/30/2014 Body Fluid Cult Gram (SEE NOTE) 54, 55 Stain Laboratory test 09/30/2014 Anaerobic Culture (SEE NOTE) 54, 56 finding Comp Metabolic Panel 11/01/2013 Sodium 137 mmol/L 133-145 Potassium 4.1 mmol/L 3.5-5.0 Chloride 102 mmol/L 101-111 Co2 Carbon Dioxide 24.0 mmol/L 22-32 Anion Gap 11.0 mmol/L 2-11 Glucose 181 mg/dL High 70-100 Blood Urea Nitrogen 12 mg/dL 6-24 Creatinine 1.10 mg/dL 0.50-1.40 BUN/Creatinine Ratio 10.9 8-20 Calcium 9.2 mg/dL 8.1-9.9 Total Protein 6.4 g/dL 6.2-8.1 Albumin 4.2 g/dL 3.2-5.2 Globulin 2.2 g/dL 2-4 Albumin/Globulin Ratio 1.9 1-3 Total Bilirubin 1.6 mg/dL High 0.4-1.5 Alkaline Phosphatase 49 U/L 30-110 Alt 29 U/L 14-54 Ast 24 U/L 12-42 Egfr Non- 65.4 >60 Egfr 84.2 >60 57 Lipid Profile (Trig/Chol/HDL) 11/01/2013 Triglycerides 121 mg/dL 40-200 Cholesterol 135 mg/dL Less than 200 HDL Cholesterol 44 mg/dL 40-60 58 Cholesterol/HDL Ratio 3.1 Average 1-4.44 LDL Cholesterol 66.8 Less Than 100 59 Laboratory test finding 11/01/2013 Creatine Kinase 144 U/L 0-200 60 CBC Auto Diff 11/01/2013 White Blood Count 8.3 10^3/uL 4.8-10.8 Red Blood Count 4.89 10^6/uL 4.0-5.4 Hemoglobin 14.6 g/dL 14.0-18.0 Hematocrit 43 % 42-52 Mean Corpuscular Volume 87 fL 80-94 Mean Corpuscular Hemoglobin 30 pg 27-31 Mean Corpuscular HGB Conc 34 g/dL 31-36 Red Cell Distribution Width 14 % 10.5-15 Platelet Count 205 10^3/uL 150-450 Mean Platelet Volume 8 um3 7.4-10.4 Abs Neutrophils 5.4 10^3/uL 1.5-7.7 Abs Lymphocytes 2.1 10^3/uL 1.0-4.8 Abs Monocytes 0.5 10^3/uL 0-0.8 Abs Eosinophils 0.2 10^3/uL 0-0.6 Abs Basophils 0.1 10^3/uL 0-0.2 Abs Nucleated RBC 0.01 10^3/uL Granulocyte % 65.5 % 38-83 Lymphocyte % 25.5 % 25-47 Monocyte % 5.8 % 1-9 Eosinophil % 2.4 % 0-6 Basophil % 0.8 % 0-2 Nucleated Red Blood Cells % 0.1 Lipid Panel - [facility] 05/07/2013 Creatine Kinase 199 U/L 0-200 61 Comp Metabolic Panel 05/07/2013 Sodium 139 mmol/L 133-145 Potassium 4.1 mmol/L 3.5-5.0 Chloride 105 mmol/L 101-111 Co2 Carbon Dioxide 26.0 mmol/L 22-32 Anion Gap 8.0 mmol/L 2-11 Glucose 151 mg/dL High 70-100 Blood Urea Nitrogen 12 mg/dL 6-24 Creatinine 1.10 mg/dL 0.50-1.40 BUN/Creatinine Ratio 10.9 8-20 Calcium 9.3 mg/dL 8.1-9.9 Total Protein 6.4 g/dL 6.2-8.1 Albumin 4.0 g/dL 3.2-5.2 Globulin 2.4 g/dL 2-4 Albumin/Globulin Ratio 1.7 1-3 Total Bilirubin 1.6 mg/dL High 0.4-1.5 Alkaline Phosphatase 44 U/L 30-110 Alt 29 U/L 14-54 Ast 26 U/L 12-42 Egfr Non- 65.4 >60 Egfr 84.2 >60 62 Lipid Profile (Trig/Chol/HDL) 05/07/2013 Triglycerides 66 mg/dL 40-200 Cholesterol 102 mg/dL Less than 200 HDL Cholesterol 39 mg/dL Low 40-60 63 Cholesterol/HDL Ratio 2.6 Average 1-4.44 LDL Cholesterol 49.8 Less Than 100 64 Lipid Profile (Trig/Chol/HDL) 10/09/2012 Triglycerides 151 mg/dL 40-200 Cholesterol 170 mg/dL Less than 200 HDL Cholesterol 38 mg/dL Low 40-60 65 Cholesterol/HDL Ratio 4.5 Average High 1-4.44 LDL Cholesterol 101.8 mg/dL High Less Than 100 66 Comp Metabolic Panel 10/09/2012 Sodium 140 mmol/L 133-145 Potassium 4.3 mmol/L 3.5-5.0 Chloride 105 mmol/L 101-111 Co2 Carbon Dioxide 28.0 mmol/L 22-32 Anion Gap 7.0 mmol/L 2-11 Glucose 157 mg/dL High 70-100 Blood Urea Nitrogen 13 mg/dL 6-24 Creatinine 1.00 mg/dL 0.50-1.40 BUN/Creatinine Ratio 13.0 8-20 Calcium 9.3 mg/dL 8.1-9.9 Total Protein 6.8 g/dL 6.2-8.1 Albumin 3.8 g/dL 3.2-5.2 Globulin 3.0 g/dL 2-4 Albumin/Globulin Ratio 1.3 1-3 Total Bilirubin 1.5 mg/dL 0.4-1.5 Alkaline Phosphatase 51 U/L 30-110 Alt 27 U/L 14-54 Ast 20 U/L 12-42 Egfr Non- 73.2 >60 Egfr 94.2 >60 67 Lipid Panel - [facility] 10/09/2012 Creatine Kinase 85 U/L 0-200 68 Comp Metabolic Panel 07/17/2012 Sodium 139 mmol/L 133-145 Potassium 4.1 mmol/L 3.5-5.0 Chloride 110 mmol/L 101-111 Co2 Carbon Dioxide 26.0 mmol/L 22-32 Anion Gap 3.0 mmol/L 2-11 Glucose 227 mg/dL High 70-100 Blood Urea Nitrogen 14 mg/dL 6-24 Creatinine 1.00 mg/dL 0.50-1.40 BUN/Creatinine Ratio 14.0 8-20 Calcium 8.6 mg/dL 8.1-9.9 Total Protein 5.5 GM/DL Low 6.2-8.1 Albumin 3.8 GM/DL 3.2-5.2 Globulin 1.7 GM/DL Low 2-4 Albumin/Globulin Ratio 2.2 1-3 Alkaline Phosphatase 42 U/L 30-110 Alt 31 U/L 14-54 Ast 27 U/L 12-42 Egfr Non- 73.2 >60 Egfr 94.2 >60 69 Laboratory test finding 07/17/2012 Total Bilirubin 1.3 mg/dL High 0.1-1.0 70 CBC Auto Diff 07/17/2012 White Blood Count 6.7 10^3/uL 4.8-10.8 Red Blood Count 4.18 10^6/uL 4.0-5.4 Hemoglobin 13.2 g/dL Low 14.0-18.0 Hematocrit 38 % Low 42-52 Mean Corpuscular Volume 91 fL 80-94 Mean Corpuscular Hemoglobin 32 pg High 27-31 Mean Corpuscular HGB Conc 35 g/dL 31-36 Red Cell Distribution Width 14 % 10.5-15 Platelet Count 192 10^3/uL 150-450 Mean Platelet Volume 8 um3 7.4-10.4 Abs Neutrophils 4.4 10^3/uL 1.5-7.7 Abs Lymphocytes 1.8 10^3/uL 1.0-4.8 Abs Monocytes 0.3 10^3/uL 0-0.8 Abs Eosinophils 0.2 10^3/uL 0-0.6 Abs Basophils 0.1 10^3/uL 0-0.2 Abs Nucleated RBC 0 10^3/uL Granulocyte % 65.3 % 38-83 Lymphocyte % 26.5 % 25-47 Monocyte % 4.9 % 1-9 Eosinophil % 2.5 % 0-6 Basophil % 0.8 % 0-2 Nucleated Red Blood Cells % 0.1 Laboratory test finding 07/17/2012 TSH (Thyroid Stimulating 1.50 MIU/ML 0.34-5.60 Horm) Iron 71 UG/ML 45-182 Lipid Panel - [facility] 05/09/2012 CPK (Creatine Kinase) 143 U/L 0-200 Comp Metabolic Panel 05/09/2012 Sodium 135 mmol/L 135-145 Potassium 4.7 mmol/L 3.5-5.0 Chloride 104 mmol/L 101-111 Co2 (Carbon Dioxide) 25.0 mmol/L 22-32 Anion Gap 6.0 mmol/L 2-11 71 Glucose 175 mg/dL High 70-100 BUN 11 mg/dL 6-24 Creatinine 1.0 mg/dL 0.50-1.40 One Over Creatinine 1.00 BUN/Creatinine Ratio 11.0 8-20 Calcium 9.4 mg/dL 8.1-9.9 Total Protein 6.2 GM/DL 6.2-8.1 Albumin 4.2 GM/DL 3.2-5.2 Globulin 2.0 GM/DL 2-4 Albumin/Globulin Ratio 2.1 1-3 Bilirubin Total 1.8 mg/dL High 0.4-1.5 72 Alkaline Phosphatase 42 U/L 39-117 Alt (SGPT) 47 U/L 17-63 Ast (Sgot) 39 U/L 12-42 eGFR Non- 73.2 > 60 eGFR 94.2 > 60 73 Lipid Profile (Trig/Chol/HDL) 05/09/2012 Triglyceride 157 mg/dL 40-200 Cholesterol 150 mg/dL Less Than 200 74 High Density Lipoprotein 38 mg/dL Low 40-60 75 Cholesterol/HDL Ratio 3.95 AVERAGE 1-4.97 Low Density Lipoprotein 81 mg/dL Less Than 100 76 Laboratory test finding 04/13/2012 Troponin-I 0.01 NG/ML 0-0.06 77, 78 TSH 1.67 MIU/ML 0.34-5.60 77 CBC Auto Diff 04/13/2012 White Blood Count 7.5 CUMM 4.8-10.8 77 Red Cell Count 4.66 CUMM 4.6-6.2 77 Hemoglobin 14.4 g/dL 14.0-18.0 77 Hematocrit 42 % 42-52 77 Mean Corpuscular Volume 89 um3 80-94 77 Mean Corpuscular Hemoglob 31 pg 27-31 77 Mean Corpuscular HGB Cone 35 g/dL 32-36 77 Redcell Distribution WDTH 13 % 10.5-15 77 Platelet Count 218 CUMM 150-450 77 Mean Platelet Volume 7.7 um3 7.4-10.4 77 Gran % 72.0 % 38-83 77 Lymph % 21.2 % Low 25-47 77 Mononuclear % 4.6 % 1-9 77 Eosinophil % 1.7 % 0-6 77 Basophil % 0.5 % 0-2 77 Abs Lymphs 1.6 1.0-4.8 77 Abs Mononuclear 0.3 0-0.8 77 Absolute Neutrophil Count 5.4 1.5-7.7 77 Abs Eosinophils 0.1 0-0.6 77 Abs Basophils 0 0-0.2 77 Laboratory test finding 04/13/2012 CPK (Creatine Kinase) 192 U/L 0-200 77 Lipid Profile (Trig/Chol/HDL) 04/13/2012 Triglyceride 150 mg/dL 40-200 77 Cholesterol 146 mg/dL Less Than 200 77, 79 High Density Lipoprotein 42 mg/dL 40-60 77, 80 Cholesterol/HDL Ratio 3.48 AVERAGE 1-4.97 77 Low Density Lipoprotein 74 mg/dL Less Than 100 77, 81 Comp Metabolic Panel 04/13/2012 Sodium 138 mmol/L 135-145 77 Potassium 4.5 mmol/L 3.5-5.0 77 Chloride 102 mmol/L 101-111 77 Co2 (Carbon Dioxide) 27.0 mmol/L 22-32 77 Anion Gap 9.0 mmol/L 2-11 77, 82 Glucose 255 mg/dL High 70-100 77 BUN 9 mg/dL 6-24 77 Creatinine 1.0 mg/dL 0.50-1.40 77 One Over Creatinine 1.00 77 BUN/Creatinine Ratio 9.0 8-20 77 Calcium 9.4 mg/dL 8.1-9.9 77 Total Protein 6.7 GM/DL 6.2-8.1 77 Albumin 4.2 GM/DL 3.2-5.2 77 Globulin 2.5 GM/DL 2-4 77 Albumin/Globulin Ratio 1.7 1-3 77 Bilirubin Total 1.2 mg/dL 0.4-1.5 77, 83 Alkaline Phosphatase 56 U/L 39-117 77 Alt (SGPT) 45 U/L 17-63 77 Ast (Sgot) 32 U/L - 77 eGFR Non- 73.2 > 60 77 eGFR 94.2 > 60 77, 84 Lipid Panel - [facility] 10/29/2011 CPK (Creatine Kinase) 162 U/L 0-200 Comp Metabolic Panel 10/29/2011 Sodium 136 mmol/L 135-145 Potassium 4.4 mmol/L 3.5-5.0 Chloride 100 mmol/L Low 101-111 Co2 (Carbon Dioxide) 26.0 mmol/L 22-32 Anion Gap 10.0 mmol/L 2-11 85 Glucose 194 mg/dL High 70-100 BUN 12 mg/dL 6-24 Creatinine 1.0 mg/dL 0.50-1.40 One Over Creatinine 1.00 BUN/Creatinine Ratio 12.0 8-20 Calcium 9.2 mg/dL 8.1-9.9 Total Protein 6.2 GM/DL 6.2-8.1 Albumin 4.3 GM/DL 3.2-5.2 Globulin 1.9 GM/DL Low 2-4 Albumin/Globulin Ratio 2.3 1-3 Bilirubin Total 1.6 mg/dL High 0.4-1.5 86 Alkaline Phosphatase 53 U/L 39-117 Alt (SGPT) 52 U/L -63 Ast (Sgot) 42 U/L 12-42 eGFR Non- 73.5 > 60 eGFR 94.5 > 60 87 Lipid Profile (Trig/Chol/HDL) 10/29/2011 Triglyceride 166 mg/dL 40-200 Cholesterol 146 mg/dL Less Than 200 88 High Density Lipoprotein 38 mg/dL Low 40-60 89 Cholesterol/HDL Ratio 3.84 AVERAGE 1-4.97 Low Density Lipoprotein 75 mg/dL Less Than 100 90 Laboratory test finding 03/02/2011 Troponin-I 0.01 NG/ML 0-0.06 91 Laboratory test finding 01/22/2010 Alt (SGPT) 23 U/L 17-63 Ast (Sgot) 20 U/L 12-42 Basic Metabolic Panel 04/22/2009 Sodium 137 mmol/L 135-145 Potassium 4.3 mmol/L 3.5-5.0 Chloride 104 mmol/L 101-111 Co2 (Carbon Dioxide) 25.0 mmol/L 22-32 Anion Gap 8.0 mmol/L 2-11 92 Glucose 215 mg/dL High 70-100 93 BUN 12 mg/dL 6-24 Creatinine 1.08 mg/dL 0.50-1.40 One Over Creatinine 0.90 BUN/Creatinine Ratio 11.1 8-20 Calcium 9.3 mg/dL 8.1-9.9 94 eGFR Non- 71.8 > 60 eGFR 86.9 > 60 95 Surgical Pathology 08/04/2007 Surgical <SEE 96 Pathology NOTE> CBC W/ Electronic 08/01/2007 White Blood Count 11.0 CUMM High 4.8-10. 97 Diff 8 Abs Basophils 0 0-0.2 97 Abs Eosinophils 0.1 0-0.6 97 Absolute Neutrophil Count 8.6 High 1.5-7.7 97 Abs Lymphs 1.5 1.0-4.8 97 Abs Mononuclear 0.8 0-0.8 97 Basophil % 0.4 % 0-2 97 Hematocrit 43 % 42-52 97, 98 Hemoglobin 14.8 g/dL 14.0-18.0 97 Eosinophil % 0.8 % 0-6 97 Gran % 78.2 % 38-83 97 Lymph % 13.5 % Low 20-45 97 Mean Corpuscular HGB Cone 35 g/dL 32-36 97 Mean Corpuscular Hemoglob 31 pg 27-31 97 Mean Corpuscular Volume 91 um3 80-94 97 Mean Platelet Volume 7.1 um3 Low 7.4-10.4 97 Mononuclear % 7.1 % 1-9 97 Platelet Count 250 CUMM 150-450 97 Red Cell Count 4.74 CUMM 4.6-6.2 97 Redcell Distribution WDTH 13 % 10.5-15 97 Protime 08/01/2007 Inr 1.10 97, 99 Protime 12.6 10.9-13.1 97 Laboratory test finding 08/01/2007 PTT (Aptt) 24.5 20.4-29.5 97, 100 Basic Metabolic Panel 08/01/2007 One Over Creatinine 0.90 97 Anion Gap 6.0 mmol/L 2-11 97, 101 BUN 20 mg/dL 6-24 97 Calcium 9.1 mg/dL 8.7-10.2 97 Chloride 100 mmol/L Low 101-111 97 Co2 (Carbon Dioxide) 29.0 mmol/L 22-32 97 Glucose 111 mg/dL High 70-105 97 Potassium 4.2 mmol/L 3.5-5.0 97 Sodium 135 mmol/L 135-145 97 BUN/Creatinine Ratio 18.2 8-20 97 Creatinine 1.1 mg/dL 0.5-1.4 97 Type And Screen 08/01/2007 Patient Blood Type O POSITIVE Antibody Screen NEGATIVE Specimen Discard Date 08/15/07 102 1 Because ethnic data is not always readily available, this report includes an eGFR for both -Americans and non- Americans. The National Kidney Disease Education Program (NKDEP) does not endorse the use of the MDRD equation for patients that are not between the ages of 18 and 70, are , have extremes of body size, muscle mass, or nutritional status, or are non- or non-. According to the [employer], irrespective of diagnosis, the stage of the disease is based on the level of kidney function: Stage Description GFR(mL/min/1.73 m(2)) 1 Kidney damage with normal or decreased GFR 90 2 Kidney damage with mild decrease in GFR 60-89 3 Moderate decrease in GFR 30-59 4 Severe decrease in GFR 15-29 5 Kidney failure <15 (or dialysis) 2 Desirable: <150 Borderline High: 150-199 High: 200-499 Very High: >500 3 Desirable: <200 Borderline High: 200-239 High: >239 4 Low: <40 Desirable: 40-60 High: >60 5 Desirable: <100 Near Optimal: 100-129 Borderline High: 130-159 High: 160-189 Very High: >189 6 Because ethnic data is not always readily available, this report includes an eGFR for both -Americans and non- Americans. The National Kidney Disease Education Program (NKDEP) does not endorse the use of the MDRD equation for patients that are not between the ages of 18 and 70, are , have extremes of body size, muscle mass, or nutritional status, or are non- or non-. According to the National Kidney Foundation, irrespective of diagnosis, the stage of the disease is based on the level of kidney function: Stage Description GFR(mL/min/1.73 m(2)) 1 Kidney damage with normal or decreased GFR 90 2 Kidney damage with mild decrease in GFR 60-89 3 Moderate decrease in GFR 30-59 4 Severe decrease in GFR 15-29 5 Kidney failure <15 (or dialysis) 7 >100 to <200 pg/mL: likely compensated congestive heart failure (CHF) 200 to 400 pg/mL: likely moderate CHF >400 pg/mL: likely moderate to severe CHF 8 FASTING 9 Because ethnic data is not always readily available, this report includes an eGFR for both -Americans and non- Americans. The National Kidney Disease Education Program (NKDEP) does not endorse the use of the MDRD equation for patients that are not between the ages of 18 and 70, are , have extremes of body size, muscle mass, or nutritional status, or are non- or non-. According to the National Kidney Foundation, irrespective of diagnosis, the stage of the disease is based on the level of kidney function: Stage Description GFR(mL/min/1.73 m(2)) 1 Kidney damage with normal or decreased GFR 90 2 Kidney damage with mild decrease in GFR 60-89 3 Moderate decrease in GFR 30-59 4 Severe decrease in GFR 15-29 5 Kidney failure <15 (or dialysis) 10 Desirable: <150 Borderline High: 150-199 High: 200-499 Very High: >500 11 Desirable: <200 Borderline High: 200-239 High: >239 12 Low: <40 Desirable: 40-60 High: >60 13 Desirable: <100 Near Optimal: 100-129 Borderline High: 130-159 High: 160-189 Very High: >189 14 FASTING 15 SEE RESULT BELOW Name: CHEPE REGAN : [address]: Jude Rosario MD Acct: [id number] Unit: [id number] AGE: 77 Location: [place] [address] Re07/10/17 SEX: M Status: ADM IN SPEC: [id number] NORMA: 07/10/17 [facility] DR: Jude Rosario MD REQ: [id number] RECD: 07/10/17 STATUS: ADOLFO CESPEDES DR: Kevin Han MD _ SOURCE: URINE SPDESC: ORDERED: Legion Ur Ag Procedure Result Reported Site Legionella Urine Antigen Final 07/10/17- 266 ML Organism 1 Negative Legionella Antigen testing by enzyme immunoassay * ML - MAIN LAB ([facility]) . END OF REPORT * ML=Testing performed at Main Lab DEPARTMENT OF PATHOLOGY, [address] [place] [address] Flavio Gan M.D. Director [place] # [id number] 16 SEE RESULT BELOW Name: CHEPE REGAN : [address]: Jude Rosario MD Acct: [id number] Unit: [id number] AGE: 77 Location: [facility] 340-01 Re07/10/17 SEX: M Status: ADM IN SPEC: [id number] NORMA: 07/10/17 [facility] DR: Jude Rosario MD REQ: [id number] RECD: 07/10/17 STATUS: ADOLFO CESPEDES DR: Kevin Han MD _ SOURCE: URINE SPDESC: ORDERED: S.pneumo Ur Ag Procedure Result Reported Site S.Pneumonia Urine Antigen Final 07/10/17- 0429 ML Organism 1 Negative S. pneumo Antigen Antigen testing by enzyme immunoassay * ML - MAIN LAB ([facility]) . END OF REPORT * ML=Testing performed at Main Lab DEPARTMENT OF PATHOLOGY, [address] [place] [address] Flavio Gan M.D. Director [facility] # [id number] 17 Machine Setter Sheet Metal: [id number] 18 SEE RESULT BELOW Name: CHEPE REGAN : [address]: Kevin Benz MD Acct: [id number] Unit: [id number] AGE: 77 Location: ED Re07/09/17 SEX: M Status: REG ER SPEC: [id number] NORMA: 07/10/17 [facility] DR: Jude Rosario MD REQ: [id number] RECD: 07/10/17 STATUS: ADOLFO CESPEDES DR: Kevin Han MD _ SOURCE: [facility]: ORDERED: Flu A B Request Procedure Result Reported Site Rapid Influenza A B Request Final 07/10/17150 ML Specimen received for Influenza A/B Molecular testing * ML - MAIN LAB ([facility]) . END OF REPORT * ML=Testing performed at Main Lab DEPARTMENT OF PATHOLOGY, [address] [place] [address] Flavio Gan M.D. Director [facility] # [id number] 19 Reference ranges based on room air. 20 Because ethnic data is not always readily available, this report includes an eGFR for both -Americans and non- Americans. The National Kidney Disease Education Program (NKDEP) does not endorse the use of the MDRD equation for patients that are not between the ages of 18 and 70, are , have extremes of body size, muscle mass, or nutritional status, or are non- or non-. According to the National Kidney Foundation, irrespective of diagnosis, the stage of the disease is based on the level of kidney function: Stage Description GFR(mL/min/1.73 m(2)) 1 Kidney damage with normal or decreased GFR 90 2 Kidney damage with mild decrease in GFR 60-89 3 Moderate decrease in GFR 30-59 4 Severe decrease in GFR 15-29 5 Kidney failure <15 (or dialysis) 21 >100 to <200 pg/mL: likely compensated congestive heart failure (CHF) 200 to 400 pg/mL: likely moderate CHF >400 pg/mL: likely moderate to severe CHF 22 Therapeutic target for the treatment of diabetes mellitus patients is <7% HBA1C, and in selective patients <6.0%. Please refer to [place] [employer] diabetic care guidelines for further information. 23 >100 to <200 pg/mL: likely compensated congestive heart failure (CHF) 200 to 400 pg/mL: likely moderate CHF >400 pg/mL: likely moderate to severe CHF 24 in 1 week Copy Result to: ADAIR HAN ([id number]) 25 Because ethnic data is not always readily available, this report includes an eGFR for both -Americans and non- Americans. The National Kidney Disease Education Program (NKDEP) does not endorse the use of the MDRD equation for patients that are not between the ages of 18 and 70, are , have extremes of body size, muscle mass, or nutritional status, or are non- or non-. According to the National Kidney Foundation, irrespective of diagnosis, the stage of the disease is based on the level of kidney function: Stage Description GFR(mL/min/1.73 m(2)) 1 Kidney damage with normal or decreased GFR 90 2 Kidney damage with mild decrease in GFR 60-89 3 Moderate decrease in GFR 30-59 4 Severe decrease in GFR 15-29 5 Kidney failure <15 (or dialysis) 26 Because ethnic data is not always readily available, this report includes an eGFR for both -Americans and non- Americans. The National Kidney Disease Education Program (NKDEP) does not endorse the use of the MDRD equation for patients that are not between the ages of 18 and 70, are , have extremes of body size, muscle mass, or nutritional status, or are non- or non-. According to the National Kidney Foundation, irrespective of diagnosis, the stage of the disease is based on the level of kidney function: Stage Description GFR(mL/min/1.73 m(2)) 1 Kidney damage with normal or decreased GFR 90 2 Kidney damage with mild decrease in GFR 60-89 3 Moderate decrease in GFR 30-59 4 Severe decrease in GFR 15-29 5 Kidney failure <15 (or dialysis) 27 Because ethnic data is not always readily available, this report includes an eGFR for both -Americans and non- Americans. The National Kidney Disease Education Program (NKDEP) does not endorse the use of the MDRD equation for patients that are not between the ages of 18 and 70, are , have extremes of body size, muscle mass, or nutritional status, or are non- or non-. According to the National Kidney Foundation, irrespective of diagnosis, the stage of the disease is based on the level of kidney function: Stage Description GFR(mL/min/1.73 m(2)) 1 Kidney damage with normal or decreased GFR 90 2 Kidney damage with mild decrease in GFR 60-89 3 Moderate decrease in GFR 30-59 4 Severe decrease in GFR 15-29 5 Kidney failure <15 (or dialysis) 28 Because ethnic data is not always readily available, this report includes an eGFR for both -Americans and non- Americans. The National Kidney Disease Education Program (NKDEP) does not endorse the use of the MDRD equation for patients that are not between the ages of 18 and 70, are , have extremes of body size, muscle mass, or nutritional status, or are non- or non-. According to the National Kidney Foundation, irrespective of diagnosis, the stage of the disease is based on the level of kidney function: Stage Description GFR(mL/min/1.73 m(2)) 1 Kidney damage with normal or decreased GFR 90 2 Kidney damage with mild decrease in GFR 60-89 3 Moderate decrease in GFR 30-59 4 Severe decrease in GFR 15-29 5 Kidney failure <15 (or dialysis) 29 non-fasting tomorrow 30 >100 to <200 pg/mL: likely compensated congestive heart failure (CHF) 200 to 400 pg/mL: likely moderate CHF >400 pg/mL: likely moderate to severe CHF 31 Because ethnic data is not always readily available, this report includes an eGFR for both -Americans and non- Americans. The National Kidney Disease Education Program (NKDEP) does not endorse the use of the MDRD equation for patients that are not between the ages of 18 and 70, are , have extremes of body size, muscle mass, or nutritional status, or are non- or non-. According to the National Kidney Foundation, irrespective of diagnosis, the stage of the disease is based on the level of kidney function: Stage Description GFR(mL/min/1.73 m(2)) 1 Kidney damage with normal or decreased GFR 90 2 Kidney damage with mild decrease in GFR 60-89 3 Moderate decrease in GFR 30-59 4 Severe decrease in GFR 15-29 5 Kidney failure <15 (or dialysis) 32 Because ethnic data is not always readily available, this report includes an eGFR for both -Americans and non- Americans. The National Kidney Disease Education Program (NKDEP) does not endorse the use of the MDRD equation for patients that are not between the ages of 18 and 70, are , have extremes of body size, muscle mass, or nutritional status, or are non- or non-. According to the National Kidney Foundation, irrespective of diagnosis, the stage of the disease is based on the level of kidney function: Stage Description GFR(mL/min/1.73 m(2)) 1 Kidney damage with normal or decreased GFR 90 2 Kidney damage with mild decrease in GFR 60-89 3 Moderate decrease in GFR 30-59 4 Severe decrease in GFR 15-29 5 Kidney failure <15 (or dialysis) 33 >100 to <200 pg/mL: likely compensated congestive heart failure (CHF) 200 to 400 pg/mL: likely moderate CHF >400 pg/mL: likely moderate to severe CHF 34 Because ethnic data is not always readily available, this report includes an eGFR for both -Americans and non- Americans. The National Kidney Disease Education Program (NKDEP) does not endorse the use of the MDRD equation for patients that are not between the ages of 18 and 70, are , have extremes of body size, muscle mass, or nutritional status, or are non- or non-. According to the National Kidney Foundation, irrespective of diagnosis, the stage of the disease is based on the level of kidney function: Stage Description GFR(mL/min/1.73 m(2)) 1 Kidney damage with normal or decreased GFR 90 2 Kidney damage with mild decrease in GFR 60-89 3 Moderate decrease in GFR 30-59 4 Severe decrease in GFR 15-29 5 Kidney failure <15 (or dialysis) 35 cc pmd in 2 weeks 36 Because ethnic data is not always readily available, this report includes an eGFR for both -Americans and non- Americans. The National Kidney Disease Education Program (NKDEP) does not endorse the use of the MDRD equation for patients that are not between the ages of 18 and 70, are , have extremes of body size, muscle mass, or nutritional status, or are non- or non-. According to the National Kidney Foundation, irrespective of diagnosis, the stage of the disease is based on the level of kidney function: Stage Description GFR(mL/min/1.73 m(2)) 1 Kidney damage with normal or decreased GFR 90 2 Kidney damage with mild decrease in GFR 60-89 3 Moderate decrease in GFR 30-59 4 Severe decrease in GFR 15-29 5 Kidney failure <15 (or dialysis) 37 FASTING cc pmd in 2 weeks Copy Result to: ADAIR HAN ([id number]) 38 >100 to <200 pg/mL: likely compensated congestive heart failure (CHF) 200 to 400 pg/mL: likely moderate CHF >400 pg/mL: likely moderate to severe CHF 39 Desirable <150 Borderline high 150-199 High 200-499 Very High >500 40 Desirable <200 Borderline high 200-239 High >239 41 Low <40 Desirable: 40-60 High: >60 42 Desirable: <100 mg/dL Near Optimal: 100-129 mg/dL Borderline High: 130-159 mg/dL High: 160-189 mg/dL Very High: >189 mg/dL 43 Because ethnic data is not always readily available, this report includes an eGFR for both -Americans and non- Americans. The National Kidney Disease Education Program (NKDEP) does not endorse the use of the MDRD equation for patients that are not between the ages of 18 and 70, are , have extremes of body size, muscle mass, or nutritional status, or are non- or non-. According to the National Kidney Foundation, irrespective of diagnosis, the stage of the disease is based on the level of kidney function: Stage Description GFR(mL/min/1.73 m(2)) 1 Kidney damage with normal or decreased GFR 90 2 Kidney damage with mild decrease in GFR 60-89 3 Moderate decrease in GFR 30-59 4 Severe decrease in GFR 15-29 5 Kidney failure <15 (or dialysis) 44 FASTING cc pmd in 2 weeks Copy Result to: ADAIR HAN ([id number]) 45 FASTING 46 Because ethnic data is not always readily available, this report includes an eGFR for both -Americans and non- Americans. The National Kidney Disease Education Program (NKDEP) does not endorse the use of the MDRD equation for patients that are not between the ages of 18 and 70, are , have extremes of body size, muscle mass, or nutritional status, or are non- or non-. According to the National Kidney Foundation, irrespective of diagnosis, the stage of the disease is based on the level of kidney function: Stage Description GFR(mL/min/1.73 m(2)) 1 Kidney damage with normal or decreased GFR 90 2 Kidney damage with mild decrease in GFR 60-89 3 Moderate decrease in GFR 30-59 4 Severe decrease in GFR 15-29 5 Kidney failure <15 (or dialysis) 47 Desirable <150 Borderline high 150-199 High 200-499 Very High >500 48 Desirable <200 Borderline high 200-239 High >239 49 Low <40 Desirable: 40-60 High: >60 50 Desirable: <100 mg/dL Near Optimal: 100-129 mg/dL Borderline High: 130-159 mg/dL High: 160-189 mg/dL Very High: >189 mg/dL 51 >100 to <200 pg/mL: likely compensated congestive heart failure (CHF) 200 to 400 pg/mL: likely moderate CHF >400 pg/mL: likely moderate to severe CHF 52 FASTING 53 Acute inflammation: >10.00 54 fluid in swab tube absorbed by sponge 55 RUN DATE: 10/04/14 [facility] LAB LIVE PAGE 1 RUN TIME: [address] [place], [place] [address] Specimen Inquiry Name: CHEPE REGAN : [address]: Rosio Rogers MD Acct: [id number] Unit: [id number] AGE: 74 Location: [facility] Re09/30/14 SEX: M Status: REG REF SPEC: [id number] NORMA: 09/30/14-1030 [facility] DR: Rosio Rogers MD REQ: [id number] RECD: 09/30/14 STATUS: COMP _ SOURCE: JOINT FLUI SPDESC:KNEE LEFT ORDERED: BF Cult/GS COMMENTS: fluid in swab tube absorbed by sponge Swab was received from fluid source. The preferred specimen is fluid collected in sterile container, which has been shown to yield increased recovery of microorganisms. Procedure Result Verified Site Body Fluid Gram Stain Final 09/30/14- 1455 ML 1+ Nucleated Cells No Organisms Seen Preparation By Direct Smear Body Fluid Culture Final 10/04/14- 1208 ML No Growth Day 4 END OF REPORT * ML=Testing performed at Main Lab DEPARTMENT OF PATHOLOGY, [facility] [address] [place], [place] [address] Flavio Gan M.D. Director [facility] # [id number] 56 RUN DATE: 10/04/14 [facility] LAB LIVE PAGE 1 RUN TIME: 1206 [facility] [employer] [place], [place] [address] Specimen Inquiry Name: CHEPE REGAN DOB: [address]: Rosio Rogers MD Acct: [id number] Unit: [id number] AGE: 74 Location: [facility] Re09/30/14 SEX: M Status: REG REF SPEC: [id number] NORMA: 09/30/14-[address]: Rosio Rogers MD REQ: [id number] RECD: 09/30/14 STATUS: COMP _ SOURCE: BODY FLUID SPDESC:KNEE LEFT ORDERED: Anaerobic Cult Procedure Result Verified Site Anaerobic Culture Final 10/04/14- 1206 ML Anaerobe Culture No Anaerobes Day 4 END OF REPORT * ML=Testing performed at Main Lab DEPARTMENT OF PATHOLOGY, [address] [place] [address] Flavio Gan M.D. Director [facility] # [id number] 57 Because ethnic data is not always readily available, this report includes an eGFR for both -Americans and non- Americans. The National Kidney Disease Education Program (NKDEP) does not endorse the use of the MDRD equation for patients that are not between the ages of 18 and 70, are , have extremes of body size, muscle mass, or nutritional status, or are non- or non-. According to the National Kidney Foundation, irrespective of diagnosis, the stage of the disease is based on the level of kidney function: Stage Description GFR(mL/min/1.73 m(2)) 1 Kidney damage with normal or decreased GFR 90 2 Kidney damage with mild decrease in GFR 60-89 3 Moderate decrease in GFR 30-59 4 Severe decrease in GFR 15-29 5 Kidney failure <15 (or dialysis) 58 HDL Interpretation: Undesirable: High Risk: Less than 40 mg/dL Desirable: Low Risk: Greater than 60 mg/dL 59 LDL Interpretation: Low Risk Optimal Level: LDL Less than 100 mg/dL Near or Above Optimal: LDL 100-129 mg/dL Borderline High Risk: LDL 130-159 mg/dL High Risk: LDL 160-189 mg/dL Very High Risk: LDL Greater than 189 mg/dL 60 FASTING 61 FASTING 62 Because ethnic data is not always readily available, this report includes an eGFR for both -Americans and non- Americans. The National Kidney Disease Education Program (NKDEP) does not endorse the use of the MDRD equation for patients that are not between the ages of 18 and 70, are , have extremes of body size, muscle mass, or nutritional status, or are non- or non-. According to the National Kidney Foundation, irrespective of diagnosis, the stage of the disease is based on the level of kidney function: Stage Description GFR(mL/min/1.73 m(2)) 1 Kidney damage with normal or decreased GFR 90 2 Kidney damage with mild decrease in GFR 60-89 3 Moderate decrease in GFR 30-59 4 Severe decrease in GFR 15-29 5 Kidney failure <15 (or dialysis) 63 HDL Interpretation: Undesirable: High Risk: Less than 40 mg/dL Desirable: Low Risk: Greater than 60 mg/dL 64 LDL Interpretation: Low Risk Optimal Level: LDL Less than 100 mg/dL Near or Above Optimal: LDL 100-129 mg/dL Borderline High Risk: LDL 130-159 mg/dL High Risk: LDL 160-189 mg/dL Very High Risk: LDL Greater than 189 mg/dL 65 HDL Interpretation: Undesirable: High Risk: Less than 40 MG/DL Desirable: Low Risk: Greater than 60 MG/DL 66 LDL Interpretation: Low Risk Optimal Level: LDL Less than 100 MG/DL Near or Above Optimal: LDL 100-129 MG/DL Borderline High Risk: LDL 130-159 MG/DL High Risk: LDL 160-189 MG/DL Very High Risk: LDL Greater than 189 MG/DL 67 Because ethnic data is not always readily available, this report includes an eGFR for both -Americans and non- Americans. The National Kidney Disease Education Program (NKDEP) does not endorse the use of the MDRD equation for patients that are not between the ages of 18 and 70, are , have extremes of body size, muscle mass, or nutritional status, or are non- or non-. According to the National Kidney Foundation, irrespective of diagnosis, the stage of the disease is based on the level of kidney function: Stage Description GFR(mL/min/1.73 m(2)) 1 Kidney damage with normal or decreased GFR 90 2 Kidney damage with mild decrease in GFR 60-89 3 Moderate decrease in GFR 30-59 4 Severe decrease in GFR 15-29 5 Kidney failure <15 (or dialysis) 68 FASTING 69 Because ethnic data is not always readily available, this report includes an eGFR for both -Americans and non- Americans. The National Kidney Disease Education Program (NKDEP) does not endorse the use of the MDRD equation for patients that are not between the ages of 18 and 70, are , have extremes of body size, muscle mass, or nutritional status, or are non- or non-. According to the National Kidney Foundation, irrespective of diagnosis, the stage of the disease is based on the level of kidney function: Stage Description GFR(mL/min/1.73 m(2)) 1 Kidney damage with normal or decreased GFR 90 2 Kidney damage with mild decrease in GFR 60-89 3 Moderate decrease in GFR 30-59 4 Severe decrease in GFR 15-29 5 Kidney failure <15 (or dialysis) 70 A metabolite of Naproxen, O-desmethylnaproxen, has been shown to interfere with the [place] method for measuring total bilirubin. Samples from patients who have taken Naproxen have shown spurious elevation in total bilirubin levels. 71 Anion gap measurement may be of limited value in the presence of any alkalosis, especially in a combined acid base disorder. . 72 A metabolite of Naproxen, O-desmethylnaproxen, has been shown to interfere with the [place] method for measuring total bilirubin. Samples from patients who have taken Naproxen have shown spurious elevation in total bilirubin levels. 73 Because ethnic data is not always readily available, this report includes an eGFR for both -Americans and non- Americans. The National Kidney Disease Education Program (NKDEP) does not endorse the use of the MDRD equation for patients that are not between the ages of 18 and 70, are , have extremes of body size, muscle mass, or nutritional status, or are non- or non-. According to the National Kidney Foundation, irrespective of diagnosis, the stage of the disease is based on the level of kidney function: Stage Description GFR(mL/min/1.73 m(2)) 1 Kidney damage with normal or decreased GFR 90 2 Kidney damage with mild decrease in GFR 60-89 3 Moderate decrease in GFR 30-59 4 Severe decrease in GFR 15-29 5 Kidney failure <15 (or dialysis) 74 CHOLESTEROL INTERPRETATION: Desirable: Less than 200 MG/DL Borderline-High Risk: 200-239 MG/DL High-Risk: 240 MG/DL and over 75 HDL INTERPRETATION: Undesirable: High Risk: Less than 40 MG/DL Desirable: Low Risk: Greater than 60 MG/DL 76 LDL INTERPRETATION: Low Risk Optimal Level: LDL Less than 100 MG/DL Near or Above Optimal: LDL 100-129 MG/DL Borderline High Risk: LDL 130-159 MG/DL High Risk: LDL 160-189 MG/DL Very High Risk: LDL Greater than 189 MG/DL 77 FASTING 78 New Reference Range and Interpretation effective 07/06/2002 TnI (ng/ml) INTERPRETATION Less Than 0.06 ng/mL NOT SUPPORTIVE OF DIAGNOSIS OF NE 0.06 - 0.50 ng/ml INDETERMINATE: SUGGEST SERIAL STUDIES IF CLINICALLY INDICATED. Greater than 0.5 ng/mL CONSISTENT WITH DIAGNOSIS OF NE . 79 CHOLESTEROL INTERPRETATION: Desirable: Less than 200 MG/DL Borderline-High Risk: 200-239 MG/DL High-Risk: 240 MG/DL and over 80 HDL INTERPRETATION: Undesirable: High Risk: Less than 40 MG/DL Desirable: Low Risk: Greater than 60 MG/DL 81 LDL INTERPRETATION: Low Risk Optimal Level: LDL Less than 100 MG/DL Near or Above Optimal: LDL 100-129 MG/DL Borderline High Risk: LDL 130-159 MG/DL High Risk: LDL 160-189 MG/DL Very High Risk: LDL Greater than 189 MG/DL 82 Anion gap measurement may be of limited value in the presence of any alkalosis, especially in a combined acid base disorder. . 83 A metabolite of Naproxen, O-desmethylnaproxen, has been shown to interfere with the [place] method for measuring total bilirubin. Samples from patients who have taken Naproxen have shown spurious elevation in total bilirubin levels. 84 Because ethnic data is not always readily available, this report includes an eGFR for both -Americans and non- Americans. The National Kidney Disease Education Program (NKDEP) does not endorse the use of the MDRD equation for patients that are not between the ages of 18 and 70, are , have extremes of body size, muscle mass, or nutritional status, or are non- or non-. According to the National Kidney Foundation, irrespective of diagnosis, the stage of the disease is based on the level of kidney function: Stage Description GFR(mL/min/1.73 m(2)) 1 Kidney damage with normal or decreased GFR 90 2 Kidney damage with mild decrease in GFR 60-89 3 Moderate decrease in GFR 30-59 4 Severe decrease in GFR 15-29 5 Kidney failure <15 (or dialysis) 85 Anion gap measurement may be of limited value in the presence of any alkalosis, especially in a combined acid base disorder. . 86 A metabolite of Naproxen, O-desmethylnaproxen, has been shown to interfere with the [place] method for measuring total bilirubin. Samples from patients who have taken Naproxen have shown spurious elevation in total bilirubin levels. 87 Because ethnic data is not always readily available, this report includes an eGFR for both -Americans and non- Americans. The National Kidney Disease Education Program (NKDEP) does not endorse the use of the MDRD equation for patients that are not between the ages of 18 and 70, are , have extremes of body size, muscle mass, or nutritional status, or are non- or non-. According to the National Kidney Foundation, irrespective of diagnosis, the stage of the disease is based on the level of kidney function: Stage Description GFR(mL/min/1.73 m(2)) 1 Kidney damage with normal or decreased GFR 90 2 Kidney damage with mild decrease in GFR 60-89 3 Moderate decrease in GFR 30-59 4 Severe decrease in GFR 15-29 5 Kidney failure <15 (or dialysis) 88 CHOLESTEROL INTERPRETATION: Desirable: Less than 200 MG/DL Borderline-High Risk: 200-239 MG/DL High-Risk: 240 MG/DL and over 89 HDL INTERPRETATION: Undesirable: High Risk: Less than 40 MG/DL Desirable: Low Risk: Greater than 60 MG/DL 90 LDL INTERPRETATION: Low Risk Optimal Level: LDL Less than 100 MG/DL Near or Above Optimal: LDL 100-129 MG/DL Borderline High Risk: LDL 130-159 MG/DL High Risk: LDL 160-189 MG/DL Very High Risk: LDL Greater than 189 MG/DL 91 New Reference Range and Interpretation effective 07/06/2002 TnI (ng/ml) INTERPRETATION Less Than 0.06 ng/mL NOT SUPPORTIVE OF DIAGNOSIS OF NE 0.06 - 0.50 ng/ml INDETERMINATE: SUGGEST SERIAL STUDIES IF CLINICALLY INDICATED. Greater than 0.5 ng/mL CONSISTENT WITH DIAGNOSIS OF NE . 92 Anion gap measurement may be of limited value in the presence of any alkalosis, especially in a combined acid base disorder. . 93 Note change in reference range as of 05/23/08. The change was based on recommendations from the [place] [employer]. 94 Please note change in reference range effective 08 . 95 Because ethnic data is not always readily available, this report includes an eGFR for both -Americans and non- Americans. The National Kidney Disease Education Program (NKDEP) does not endorse the use of the MDRD equation for patients that are not between the ages of 18 and 70, are , have extremes of body size, muscle mass, or nutritional status, or are non- or non-. According to the National Kidney Foundation, irrespective of diagnosis, the stage of the disease is based on the level of kidney function: Stage Description GFR(mL/min/1.73 m(2)) 1 Kidney damage with normal or decreased GFR 90 2 Kidney damage with mild decrease in GFR 60-89 3 Moderate decrease in GFR 30-59 4 Severe decrease in GFR 15-29 5 Kidney failure <15 (or dialysis) 96 ---- RUN DATE: 08/08/07 [facility] NMI LIVE PAGE 1 RUN TIME: 1617 Specimen Inquiry RUN USER: INTERFACE [id number] CHEPE REGAN 67/M <[facility] 08/05> ([id number]) LEYDA Harper MD, Elijah Sawant -- Specimen: [id number] SOUT Spec Date: 08/04/[address]: Elijah currie MD Spec Type: SURGICAL P Received: 08/07/07-4713 Copies to: SPECIMEN RIGHT L5-S1 DISC MATERIAL HISTORY PRE-OP DIAGNOSIS: Right sciatica GROSS DESCRIPTION The specimen is received in formalin labelled Chepe Regan, Disc Material Right L5-S1, and consists of multiple, salvador-quiroga fragments measuring 3.2 x 2.0 x 0.4 cm. in aggregate. Dermatology Nurse sections, one cassette. DIAGNOSIS Intervertebral disc, L5-S1, discectomy - Intervertebral disc material. Signed Electronically by: FLAVIO GNA MD 08/08/07 1617 -- -- DEPARTMENT OF PATHOLOGY, [address] [place] [address] [facility] Permit #[id number] Flavio Gan M.D. Director of Laboratories Jw Head II, M.D . Pathologist -- 97 SDS 08/04/07 98 Lymphopenia % 99 PETER VALUE=2.00 ( OF 07/19/06) Recommended INR for Patients on Oral Anticoagulants Prophylaxis 2.0 - 3.0 Treatment of thrombosis 2.0 - 3.0 Prevention of embolism 2.0 - 3.0 Prevention of embolism from prosthetic heart valves 2.5 - 3.5 100 PLEASE NOTE NEW REFERENCE RANGE EFFECTIVE 05 101 Anion gap measurement may be of limited value in the presence of any alkalosis, especially in a combined acid base disorder. . 102 PREADMISSION TESTING SAMPLES FOR BLOOD BANK WILL BE HELD FOR 14 DAYS FROM THE DATE OF COLLECTION *IF* THE FOLLOWING CRITERIA ARE MET: 1) THE PATIENT HAS *NOT* BEEN IN THE LAST 3 MONTHS. 2) THE PATIENT HAS *NOT* BEEN TRANSFUSED IN THE LAST 3 MONTHS. PREADMISSION TESTING SAMPLES WILL *NOT* BE HELD FOR 14 DAYS FROM PATIENTS WHO IN THE LAST 3 MONTHS: 1) HAVE BEEN 2) HAVE BEEN TRANSFUSED THESE PATIENTS *MUST* BE COLLECTED WITHIN 3 DAYS OF THE SURGERY DATE. Procedures Date CPT Code Description Status 02/21/2018 63066 EKG Tracing & Interpretation Completed 12/08/2017 02390 Event Monitor/Phys Review/Interp. Completed 12/06/2017 54754 EKG Tracing & Interpretation Completed 11/24/2017 46321 EKG Tracing & Interpretation Completed 11/09/2017 08651 ECHO Transthoracic, Real-Time 2D With Doppler And Color Completed Flow 11/09/2017 25406 ECHO Transthoracic, Real-Time 2D With Doppler And Color Completed Flow 09/22/2017 10752 EKG Tracing & Interpretation Completed 06/29/2017 54101 Spirometry Incl Graphic Record Completed 06/29/2017 72612 Plethysmography Determination Lung Volumes & Per Airway Completed Resist 06/29/2017 03658 Diffusing Capacity Completed 05/05/2017 88844 Color Flow Doppler/Interp & Reprt Completed 05/05/2017 52790 Pulse Wave/Continuous-Interp.RPT Completed 05/05/2017 70796 Echocardiography, Transesophageal, Real Time W/Image 2D Completed W/W/O M-M 05/05/2017 06947 EKG, Interpretation Only Completed 05/05/2017 36961 Cardioversion Completed 04/27/2017 27533 EKG Tracing & Interpretation Completed 04/13/2017 57814 Stress ECHO Interpretation/Report Hospital Completed 04/13/2017 68441 Treadmill Interp/Report Only Completed 04/13/2017 67117 Stress Test Supervsn W/Out I/R Completed 04/10/2017 70369 Holter Monitor Review (24 hr)dr review & interp only Completed 04/06/2017 47266 ECG Monitor/Recording W/Visual Superimposition Scanning Completed 04/04/2017 56687 ECHO Transthoracic, Real-Time 2D With Doppler And Color Completed Flow 04/01/2017 37475 EKG Tracing & Interpretation Completed 03/18/2017 77335 EKG Tracing & Interpretation Completed 11/22/2016 05323 Stress Test Completed 11/22/2016 77224 Myocardial Perfusion Imaging Tomographic (Spect) Completed Multiple Studies 11/16/2016 22649 ECHO Transthoracic, Real-Time 2D With Doppler And Color Completed Flow 11/15/2016 61740 EKG Tracing & Interpretation Completed 03/10/2016 47667 EKG Tracing & Interpretation Completed 11/03/2015 02794 ECHO Transthoracic, Real-Time 2D With Doppler And Color Completed Flow 10/08/2015 45807 EKG Tracing & Interpretation Completed 10/21/2014 38797 Xray Knee 3 Views Completed 09/30/2014 71019 Xray Knee 3 Views Completed 09/17/2014 45969 Arthroscopy,Knee,Meniscectomy Media & Lateral Completed 09/17/2014 25109 Arthroscopy,Knee,Meniscectomy Media & Lateral Completed 06/21/2014 80637 Inject/Drain Joint/Bursa Major W/O US Completed 04/30/2014 86410 EKG Tracing & Interpretation Completed 03/27/2014 52850 Inject/Drain Joint/Bursa Major W/O US Completed 01/18/2014 69659 Inject/Drain Joint/Bursa Major W/O US Completed 01/18/2014 48750 Xray Knee 3 Views Completed 12/17/2013 34476 Treadmill Interp/Report Only Completed 12/17/2013 41247 Stress Test Supervsn W/Out I/R Completed 11/14/2013 45292 ECHO Transthoracic, Real-Time 2D With Doppler And Color Completed Flow 10/31/2013 99112 EKG Tracing & Interpretation Completed 10/13/2012 92381 EKG Tracing & Interpretation Completed 10/03/2012 34778 EKG, Interpretation Only Completed 07/17/2012 03002 EKG Tracing & Interpretation Completed 05/03/2012 38301 ECHO/Stress Completed 05/03/2012 05410 ECHO Transthoracic, Real-Time 2D With Doppler And Color Completed Flow 04/13/2012 81728 Stress Test Supervsn W/Out I/R Completed 04/13/2012 24028 Treadmill Interp/Report Only Completed 04/13/2012 11550 Stress ECHO Interpretation/Report Hospital Completed 04/10/2012 10237 EKG Tracing & Interpretation Completed 07/07/2011 87570 EKG Tracing & Interpretation Completed 10/30/2010 30157 EKG Tracing & Interpretation Completed 12/08/2009 51791 EKG Tracing & Interpretation Completed 04/08/2009 01222 EKG Tracing & Interpretation Completed 02/14/2009 46032 Treadmill Interp/Report Only Completed 02/14/2009 91809 Stress Test Supervsn W/Out I/R Completed 01/23/2009 79504 ECHO Transthoracic, Real-Time 2D With Doppler And Color Completed Flow 01/15/2009 42946 ECHO Stress Test Incl Perf Contiuous ekg Monitoring Completed W/Phys Superv 12/09/2008 73097 EKG Tracing & Interpretation Completed 12/27/2007 65814 EKG Tracing & Interpretation Completed 12/27/2007 76096 EKG Tracing & Interpretation Completed 08/04/2007 49259 Laminotomy W/Decomp NRV RT,One Interspace,Lumbar Completed 08/04/2007 80135 Laminotomy W/Decomp NRV RT,One Interspace,Lumbar Completed 07/31/2007 60216 EKG Tracing & Interpretation Completed 01/23/2007 89199 EKG Tracing & Interpretation Completed 01/23/2007 12549 EKG Tracing & Interpretation Completed 11/02/2006 53424 Stress Test Completed 11/02/2006 15544 Stress Test Completed 11/02/2006 66282 ECHO/Stress Completed 10/31/2006 94486 Color Doppler Completed 10/31/2006 30696 Color Doppler Completed 10/31/2006 72025 Pulse Doppler & Continuous Wave Completed 10/31/2006 07823 Echocardiogram Completed 10/31/2006 61188 Echocardiogram Completed 10/27/2006 63352 EKG Tracing & Interpretation Completed 10/27/2006 02489 EKG Tracing & Interpretation Completed Encounters Type Date Location Provider CPT E/M Dx Office Visit 02/21/2018 [facility] Les Kline, 65322 I48.0 3:40p Neel Johnson I34.0 J44.9 I10 I25.10 Office Visit 12/06/2017 10:20a [facility] Les Kline M.D. 50075 I48.0 I45.10 I34.0 J44.9 I10 R06.02 I25.10 E11.9 Office Visit 11/24/2017 11:30a [facility] Patience Turnre, 91600 I48.0 [employer] Tester N.P. I34.0 J44.9 I10 R06.02 Office Visit 09/22/2017 9:00a [facility] Les Kline M.D. 18331 J44.9 I10 I25.10 E11.9 I34.0 I48.0 Office Visit 07/20/2017 11:05a [facility], LEANNE Turner 22480 E16.2 Hospitalists E11.8 J44.9 I10 Office Visit 07/19/2017 11:04a [facility], Josh Neves, 19256 E16.2 Hospitalists N.P. E11.8 J44.9 I10 Office Visit [facility] 735[address] J18.9 Ass[facility], [facility] Hospitalists I25.10 J44.1 E11.9 Office Visit 07/12/2017 12:04p [facility] Jaja Cesar, 64043 J18.9 Assoc, [facility] Hospitalists J44.1 I25.10 E11.9 Office Visit 07/11/2017 12:03p [facility], LEANNE Turner 55523 J18.9 Hospitalists J44.1 I25.10 E11.9 Office Visit 07/10/2017 12:02p [facility], LEANNE Turner 55059 J18.9 Hospitalists J44.1 I25.10 E11.9 Office Visit 07/09/2017 12:02p [facility] [place], [address] J18.9 Assoc,pc Hospitalists MMax J44.1 I25.10 E11.9 Office Visit 05/05/2017 8:00a [facility] Les Kline, 08525 I48.91 M.D. I34.0 Office Visit 04/27/2017 10:40a [facility] Les Kline, 24897 R06.02 M.D. I25.10 I48.0 I42.9 N18.9 Office Visit 04/13/2017 11:48a [facility] Les Kline, 81432 R06.00 M.D. I25.10 Office Visit 04/01/2017 2:00p [facility] LEANNE Rodriguez 98879 I50.31 R06.02 R60.0 I34.0 Office Visit 03/18/2017 3:30p [facility] LEANNE Rodriguez 43642 I10 I34.0 I50.31 R60.0 R06.02 Office Visit 12/09/2016 3:30p [facility] LEANNE Rodriguez 81330 I10 I34.0 Office Visit 11/15/2016 3:30p [facility] LEANNE Rodriguez 93673 R60.0 R06.00 I34.0 D64.9 I10 Office Visit 10/27/2016 1:45p [facility] Robert Bates 28224 M54.16 Of [facility] M.DDon Office Visit 10/11/2016 3:45p [facility] Robert Bates 88913 M54.16 Of [facility] M.D. Office Visit 04/07/2016 12:00p [facility] LEANNE Rodriguez 97256 I10 I25.10 Office Visit 03/10/2016 2:40p [facility] Les Kline M.D. 45043 I10 E11.9 I25.10 R06.00 R60.0 Office Visit 01/30/2016 4:23p [facility], Ludwig Weir, 42587 J18.9 Hospitalists M.D. I10 E11.9 J43.1 Office Visit 01/29/2016 4:23p [facility],yamilet Weir, 66344 J18.9 Hospitalists M.D. I10 E11.9 J43.1 Office Visit 01/28/2016 4:22[place] [address] J18.9 Assoc,pc Hospitalists Elizabeth A41.9 E11.9 J43.1 Office Visit 10/08/2015 8:30a [facility] Les Kline M.D. 08346 I10 J43.9 I25.10 I34.0 E78.0 Office Visit 10/01/2015 8:00a [facility] Nurse Visit 74280 I10 Office Visit 06/21/2014 2:30p [facility] Rosio Rogers M.D. 30407 715.36 C.M.A. Office Visit 05/31/2014 9:45a [facility]io Rogers M.D. 47699 715.36 C.M.A. Office Visit 04/30/2014 10:00a [facility] Les Kline, 32929 715.36 MMax 414.01 492.8 401.1 250.90 427.81 Office Visit 03/27/2014 11:15a [facility]io Rogers M.D. 43164 715.36 C.M.A. Office Visit 02/18/2014 8:45a [facility] M.D. 36805 715.36 C.M.A. 844.1 Office Visit 01/18/2014 10:00a [facility] M.D. 91735 715.36 C.M.A. 844.1 Office Visit 12/17/2013 9:00a [facility] Les Kline, 15714 414.01 M.DDon 786.05 492.8 401.1 250.90 Office Visit 10/31/2013 8:40a [facility] Les Kline, 58737 786.05 M.D. 492.8 414.01 272.0 Office Visit 03/06/2013 10:34a [facility] Assoc,pc Ezequiel Puckett M.D. 71658 466.0 Hospitalists 786.51 786.05 485 492.8 Office Visit 10/13/2012 9:30a [facility] Julio KathleenD. 50963 492.8 250.90 414.01 272.0 Office Visit 10/03/2012 12:14p [facility], Ezequiel Puckett M.D. 91271 466.0 Hospitalists 786.51 492.8 250.90 Office Visit 10/02/2012 12:13p [facility], Alida Fitch, 99142 466.0 Hospitalists M.DDon 786.51 492.8 250.90 Office Visit 07/17/2012 10:00a [facility] Les Kline 67859 414.01 M.D. 401.1 250.00 Office Visit 04/13/2012 9:30a [facility] Les Kline 00397 414.01 M.D. 401.1 250.00 Office Visit 04/10/2012 9:30a [facility] Les Kline 80694 414.01 M.D. 272.0 401.1 426.4 Office Visit 07/07/2011 9:00a [facility] Les Kline 73637 414.01 M.D. 272.0 401.1 Office Visit 10/30/2010 9:30a [facility] Les Kline M.D. 67490 401.1 414.01 272.0 Office Visit 12/22/2009 9:00a [facility] Nurse Visit 48177 Office Visit 12/08/2009 3:00p [facility] Les Kline M.D. 94935 401.1 414.01 272.0 Office Visit 04/29/2009 10:30a [facility] Nurse Visit 65222 401.1 Office Visit 04/08/2009 9:10a [facility] Les Kline 40972 414.01 M.D. 272.0 401.1 Office Visit 12/09/2008 3:00p [facility] Les Kline 92087 414.01 M.DDon 401.0 272.0 786.09 Office Visit 12/27/2007 3:20p [facility] Les Kline 56120 414.01 M.DDon 401.1 424.0 Office Visit 07/31/2007 2:20p [facility] Les Kline, 47726 414.01 M.DDon 401.1 424.0 Office Visit 07/29/2007 10:00a [facility] Elijah Harper, 75597 722.10 Of [facility] M.Haven Office Visit 03/08/2007 8:20a [facility] Les Burns 67472 414.01 Elizabeth Kline 401.1 Office Visit 01/23/2007 3:00p [facility] Les Kline, 48794 414.01 M.DDon 401.1 Office Visit 11/18/2006 11:00a [facility] Les Kline, 68094 414.01 M.DDon 786.09 Office Visit 10/27/2006 10:20a [facility] Les Kline, 00319 786.50 M.DDon 414.01 424.0 785.2 Plan of Care Future Appointment(s):07/18/2018 9:20 am - Les Kline M.D. at [facility]07/03/2018 - Patience Turner N.P.I48.0 Paroxysmal atrial kwkbtnbqyohyA62.1 Chronic obstructive pulmonary disease w (acute) vniuetbxioqeV61.10 Athscl heart disease of [place] coronary artery w/o ang [id number] Essential (primary) hypertensionFollow up:f/u [facility] in 2 weeks w/ BP machine.Recommendations:Increase cozaar to 2 (25mg) tabs daily. Take BP 1-2 hr after taking medication. Bring in list of BPsand monitor to MT in 2 weeks
[2018-07-07 08:13] VITALS: BP 147/51
--- NOTE | 2018-07-07 09:20 | RAD ---
HISTORY: PAIN, H/O TKR COMPARISONS: January 18, 2014 VIEWS: 4 , Frontal, lateral, axial, and oblique views of the left knee FINDINGS: BONE DENSITY: Normal. BONES: The patient is status post left knee arthroplasty. The patient appears to be status post revision / removal of the tibial component. Elsewhere, there is no hardware failure or osteolysis. JOINTS: The patient is status post left knee arthroplasty. ALIGNMENT: There is no dislocation. SOFT TISSUES: There is peripheral arterial calcification. OTHER FINDINGS: None. IMPRESSION: 1. STATUS POST LEFT KNEE ARTHROPLASTY. 2. PERIPHERAL ARTERIAL DISEASE. 3. NO ACUTE OSSEOUS INJURY. IF SYMPTOMS PERSIST, RECOMMEND REPEAT IMAGING
--- NOTE | 2018-07-07 09:52 | UC ---
Knee Pain HPI - HPI Summary HPI Summary: Onset of diffuse left knee pain yesterday morning. Worse with weightbearing and ambulation. States today he is unable to weight-bear at all. 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 No heavy lifting or manual labor. Denies any injury or trauma. Is concerned there may be connective tissue damage. Has a history of knee replacement 3 years ago at [facility]. - History of Current Complaint Chief Complaint: UCLowerExtremity Stated Complaint: KNEE PAIN Time Seen by Provider: 07/07/18 09:35 Hx Obtained From: Patient Onset/Duration: Sudden Onset, Lasting Days, Still Present Severity Initially: Moderate Severity Currently: Severe Pain Intensity: 10 Pain Scale Used: 0-10 Numeric Character: Sharp, Aching Aggravating Factor(s): Movement, Weight Bearing Alleviating Factor(s): Rest Associated Signs And Symptoms: Positive: Swelling Able to Bear Weight: No - Allergies/Home Medications Allergies/Adverse Reactions: Allergies Allergy/AdvReac Type Severity Reaction Status Date / Time No Known Allergies Allergy Verified 07/07/18 07:58 Home Medications: Home Medications Albuterol Sulfate 1.25 mg IN TID 07/07/18 [History Confirmed 07/07/18] Dofetilide CAP* [Tikosyn CAP*] 125 mcg PO BID 07/07/18 [History Confirmed ] Ibuprofen TAB* [Motrin TAB* 400 MG] 400 mg PO Q6H PRN 07/07/18 [History Confirmed 07/07/18] Insulin Glargine,Hum.rec.anlog [Lantus] 30 unit SC BID 07/07/18 [History Confirmed 07/07/18] Losartan Potassium 25 mg PO DAILY 07/07/18 [History Confirmed 07/07/18] Magnesium Oxide [Magnesium 400 mg] 1 tab PO DAILY 07/07/18 [History Confirmed ] Metoprolol Tartrate TAB* [Lopressor TAB*] 50 mg PO DAILY 07/07/18 [History Confirmed 07/07/18] PMH/Surg Hx/FS Hx/Imm Hx Endocrine History: Diabetes Cardiovascular History: Cardiac Disease - STENT, Hypertension Respiratory History: COPD Other History Of: Negative For: Anticoagulant Therapy - Surgical History Surgical History: Yes Surgery Procedure, Year, and Place: 2006 HERNIATED DISC RUPTURE LSP SURGERY. 1991 BROKEN LEFT SHOULDER REPAIRED HARDWARE REMOVED. 1994 GALLBLADDER. 1998 HEART STENT [place] FOR 1.5T. 2014 LEFT KNEE REPLACEMENT - Family History Known Family History: Positive: Unknown, Cardiac Disease, Diabetes, Other - NEGATIVE FOR CANCER - Social History Alcohol Use: None Substance Use Type: None Smoking Status (MU): Former Smoker Type: Cigarettes Amount Used/How Often: 2 PACK/DAY Length of Time of Smoking/Using Tobacco: 44 Have You Smoked in the Last Year: No When Did the Patient Quit Smoking/Using Tobacco: 17yrs a go - Immunization History Most Recent Influenza Vaccination: 2016 Most Recent Tetanus Shot: within past 5 yrs Most Recent Pneumonia Vaccination: 2014 Review of Systems Constitutional: Negative Skin: Negative Respiratory: Negative Cardiovascular: Negative Gastrointestinal: Negative Musculoskeletal: Arthralgia, Decreased ROM, Edema All Other Systems Reviewed And Are Negative: Yes Physical Exam Triage Information Reviewed: Yes Appearance: Well-Appearing, No Pain Distress, Well-Nourished Vital Signs: Initial Vital Signs Temp 97.9 F 07/07/18 08:07 Pulse 70 07/07/18 08:07 Resp 18 07/07/18 08:07 BP 147/51 07/07/18 08:07 Pulse Ox 96 07/07/18 08:07 Vital Signs Reviewed: Yes Eyes: Positive: Conjunctiva Clear ENT: Positive: Hearing grossly normal Neck: Positive: Supple Respiratory: Positive: No respiratory distress, No accessory muscle use Cardiovascular: Positive: Pulses Normal Musculoskeletal: Positive: ROM Limited @ - LEFT KNEE, Edema @ - LEFT KNEE, Other : - LEFT KNEE: NO JOINT LINE TENDERNESS OR TENDERNESS OVER ANY BONY PROMINENCES. NO TENDERNESS OVER PATELLAR LIGAMENT OR QUADRICEPS TENDON. DECREASED ROM (FLEXION AND EXTENSION). KNEE EXAM LIMITED DUE TO DISCOMFORT. KNEE IS MILDLY WARM AND SWOLLEN. NO ERYTHEMA. Diagnostics - Radiology LEFT KNEE XRAY Xray Interpretation: No Acute Changes Radiology Interpretation Completed By: Radiologist Knee Pain Course/Dx - Course Course Of Treatment: X-RAY STABLE - NO ACUTE CHANGES. PATIENT WILL FOLLOW-UP WITH HIS PCP OR ORTHOPEDICS FOR MORE ADVANCED IMAGING. ADVISED TO GO TO THE ED WITHOUT FAIL IF SYMPTOMS WORSEN. PT REQUESTING A LIST OF ALL THE ORTHO PROVIDERS. - Differential Dx/Diagnosis Provider Diagnoses: LEFT KNEE PAIN Discharge - Sign-Out/Discharge Documenting (check all that apply): Patient Departure All imaging exams completed and their final reports reviewed: Yes - Discharge Plan Condition: Stable Disposition: HOME Patient Education Materials: Knee Pain (ED) Referrals: [facility] [Provider Group] Florin Sharp PA [Physician [employer]] - Ginny Gatica [Physician [employer]] - Zacarias Barney MD [Medical Doctor] - Sharath Deleon MD [Medical Doctor] - Ken Mike MD [Medical Doctor] - Marlen Edmondson PA [Physician [employer]] - Elaine Tan PA [Physician [employer]] - Rosio Rogers MD [Medical Doctor] - Jay Louise MD [Medical Doctor] - Angie Jenkins PA [Physician [employer]] - Garrison Bell MD [Medical Doctor] - Lilia Nelson PA [Physician [employer]] - Adair Han MD [Primary Care Provider] - 1 Day Dakota Paze MD [Medical Doctor] - Dakota Lam MD [Medical Doctor] - Jo Hilario PA [Physician [employer]] - Helen Hernandez NP [Nurse Practitioner] - Leslee Tellez MD [Medical Doctor] - Guera Ryan MD [Medical Doctor] - Additional Instructions: X-RAY TODAY DOES NOT SHOW ANY ACUTE PROCESS. STABLE POSTSURGICAL CHANGES. FOLLOW-UP WITH YOUR PCP OR ORTHOPEDICS FOR MORE ADVANCED IMAGING. OTC MEDS NEEDED FOR DISCOMFORT. REST, ICE, ELEVATE. WEAR YOUR KNEE BRACE NEEDED FOR COMFORT. GO TO THE ED WITHOUT FAIL IF YOU DEVELOP WORSENING PAIN, REDNESS, SWELLING, FEVER OR ANY OTHER CONCERNING SYMPTOMS. - Billing Disposition and Condition Condition: STABLE Disposition: Home
== END 2018-07-07 09:52 | disposition home or self-care (01) ==
LOC: UCEAST 07:46
DX: M25.562 Pain in left knee (principal); I73.9 Peripheral vascular disease, unspecified; E11.9 Type 2 diabetes mellitus without complications; Z79.4 Long term (current) use of insulin; I51.9 Heart disease, unspecified; I10 Essential (primary) hypertension; J44.9 Chronic obstructive pulmonary disease, unspecified; Z95.5 Presence of coronary angioplasty implant and graft; Z96.652 Presence of left artificial knee joint; Z87.891 Personal history of nicotine dependence
CPT/HCPCS: 99211; G0463

== ENCOUNTER 2018-07-29 14:10 | Emergency (ER) | payer MEDICARE, OTHER ==
--- NOTE | 2018-07-29 14:18 | ED ---
Neurological HPI - HPI Summary HPI Summary: Patient is a 78 y/o M BIBA as janene gaviria with positive [place]. Janene gaviria called at 1406, arrival at 1409, provider at patient's side to evaluate at this time. EMS reports that patient's last known well was 1100 this morning. At around 1345, patient was found by family to be AMS, confused and unable to talk. Right facial droop and right extremity weakness are also reported. notes that patient's baseline is alert and oriented x3 and ambulatory. Patient is diabetic, BG was 237. PMHx of CVA, seizures is denied, PMHx of irregular heartbeat, patient is on Xarelto and is not TPA candidate. It is noted that patient has sprained right leg and has had difficulty with ambulation and movement of this leg for the past 1-2 weeks.On triage, pain is denied, nothing is noted to aggravate/alleviate Sx. Home medications and allergies are reviewed. - History of Current Complaint Stated Complaint: JANENE GAVIRIA Time Seen by Provider: 07/29/18 14:10 Hx Obtained From: Patient Onset/Duration: Started minutes ago - onset 1345 today, Still Present Timing: Constant Current Severity: None - pain is denied Neurological Deficit Location: Facial - right, RUE, RLE Pain Intensity: 0 Pain Scale Used: 0-10 Numeric - 0/10 Character: Motor Weakness - right, Impaired Speech - unable to talk, Confusion, Other: - right facial droop, AMS Aggravating: Nothing Alleviating: Nothing Associated Signs and Symptoms: Positive: Confusion, Weakness - right sided extremities and right facial droop, AMS, Impaired Speech - Additional Pertinent History Primary Care Physician: [id number] - Allergy/Home Medications Allergies/Adverse Reactions: Allergies Allergy/AdvReac Type Severity Reaction Status Date / Time No Known Allergies Allergy Verified 07/12/18 09:27 PMH/Surg Hx/FS Hx/Imm Hx Endocrine/Hematology History: Reports: Hx Diabetes - TYPE 2 Denies: Hx Anticoagulant Therapy, Hx Blood Transfusions, Hx Thyroid Disease Cardiovascular History: Reports: Hx Angina, Hx Coronary Artery Disease, Hx Hypercholesterolemia, Hx Hypertension - ON MEDS, Hx Valvular Heart Disease Denies: Hx Myocardial Infarction, Hx Pacemaker/ICD Respiratory History: Reports: Hx Chronic Obstructive Pulmonary Disease (COPD), Hx Pneumonia, Other Respiratory Problems/Disorders - COPD Denies: Hx Asthma, Hx Seasonal Allergies, Hx Sleep Apnea GI History: Reports: Hx Diverticulosis, Hx Gall Bladder Disease - cholecystectomy 1970, Hx Hiatal Hernia, Other GI Disorders - fatty liver History: Reports: Hx Benign Prostatic Hyperplasia, Hx Kidney Infection Denies: Hx Kidney Stones, Hx Renal Disease Musculoskeletal History: Reports: Hx Arthritis, Hx Orthopedic Injury - Left shoulder 90s Denies: Hx Rheumatoid Arthritis, Hx Osteoporosis Sensory History: Reports: Hx Contacts or Glasses Denies: Hx Cataracts, Hx Eye Injury, Hx Eye Prosthesis, Hx Glaucoma, Hx Legally Blind, Hx Macular Degeneration, Hx Vision Problem, Hx Deafness, Hx Hearing Aid, Hx Hearing Problem, Other Sensory Impairments Opthamlomology History: Reports: Hx Contacts or Glasses Denies: Hx Cataracts, Hx Eye Injury, Hx Eye Prosthesis, Hx Glaucoma, Hx Legally Blind, Hx Macular Degeneration, Hx Vision Problem, Other Sensory Impairments Neurological History: Denies: Hx Dementia, Hx Seizures Psychiatric History: Denies: Hx Panic Disorder, Hx Substance Abuse - Surgical History Surgery Procedure, Year, and Place: 2006 HERNIATED DISC RUPTURE LSP SURGERY. 1991 BROKEN LEFT SHOULDER REPAIRED HARDWARE REMOVED. 1994 GALLBLADDER. 1998 HEART STENT [place]. 2014 LEFT KNEE REPLACEMENT Hx Anesthesia Reactions: No Infectious Disease History: Reports: Hx Shingles - 43 years ago Denies: Hx Hepatitis, Hx Human Immunodeficiency Virus (HIV), History Other Infectious Disease - Family History Known Family History: Positive: Cardiac Disease, Diabetes, Other - NEGATIVE FOR CANCER - Social History Alcohol Use: None Hx Substance Use: No Substance Use Type: Reports: None Hx Tobacco Use: Yes Smoking Status (MU): Former Smoker Type: Cigarettes Amount Used/How Often: 2 PACK/DAY Length of Time of Smoking/Using Tobacco: 45 Have You Smoked in the Last Year: No Review of Systems Neurological: Other - inability to speak Positive: Weakness - right sided extremities, right facial droop Psychological: Other - AMS, confusion All Other Systems Reviewed And Are Negative: Yes Physical Exam - Summary Physical Exam Summary: Appearance: lethargic Skin: warm, dry, reflects adequate perfusion Head/face: normal Eyes: eyes deviated to the left ENT: normal Neck: supple, non-tender Respiratory: CTA, breath sounds present Cardiovascular: irregularly irregular, pulses symmetrical Abdomen: non-tender, soft Bowel: present Musculoskeletal: rt daniel Neuro: alert and confused; GCS 12, NIH 29 Triage Information Reviewed: Yes Vital Signs On Initial Exam: Initial Vitals Temp Pulse Resp BP Pulse Ox 100.7 F 88 24 162/68 95 07/29/18 14:42 07/29/18 14:42 07/29/18 14:42 07/29/18 14:42 07/29/18 14:42 Vital Signs Reviewed: Yes Diagnostics - Laboratory Result Diagrams: 07/29/18 14:40 07/29/18 14:40 Lab Statement: Any lab studies that have been ordered have been reviewed, and results considered in the medical decision making process. - Radiology CXR Radiology Interpretation Completed By: Radiologist Summary of Radiographic Findings: IMPRESSION: 1. CARDIAC MEGALY UNCHANGED. 2. FINDINGS SUGGESTIVE OF COPD, NO EVIDENCE FOR ACUTE FINDING. THIS REPORT WAS REVIEWED BY ED PHYSICIAN. - CT BRAIN CT CT Interpretation Completed By: Radiologist Summary of CT Findings: IMPRESSION: 1. THERE IS A SMALL AREA OF DECREASED DENSITY IN THE RIGHT PERIVENTRICULAR WHITE MATTER. MOST CONSISTENT WITH AN INFARCT SUBACUTE TO CHRONIC IN DURATION. NO OTHER FOCAL. ABNORMALITIES ARE SEEN. THERE IS NO EVIDENCE FOR HEMORRHAGE. 2. SLIGHTLY LIMITED STUDY DUE TO MOTION ARTIFACT. THIS REPORT WAS REVIEWED BY ED PHYSICIAN. CTA HEAD/NECK CT Interpretation Completed By: Radiologist Summary of CT Findings: IMPRESSION: 1. COMPLETE OCCLUSION OF THE LEFT INTERNAL CAROTID ARTERY JUST BEYOND ITS ORIGIN AT THE. CAROTID BIFURCATION AND THROUGHOUT ITS INTRACRANIAL EXTENT. 2. SLIGHT DECREASED FLOW WITHIN THE LEFT MIDDLE CEREBRAL ARTERY BRANCHES RELATIVE TO THE. RIGHT SIDE. THIS REPORT WAS REVIEWED BY ED PHYSICIAN. 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 Non-Paretic Hand: Neither Correctly Best Gaze (Only Horizontal Eye Movement): Forced Deviation Visual Field Testing: No Visual Loss Facial Paresis-Pt to Smile & Close Eyes or Grimace Symmetry: Partial Paralysis Motor Function - Right Arm: No Effort Against [place] Motor Function - Left Arm: No Drift-Holds 10 Seconds Motor Function - Right Leg: No Movement Motor Function - Left Leg: No Movement Limb Ataxia-Must be out of Proportion to Weakness Present: Absent Sensory (Use Pinprick to Test Arms/Legs/Trunk/Face): Severe to Total Loss Best Language (Describe Picture, Name Items): Mute/Global Aphasia Dysarthria (Read Several Words): Unintelligible or Mute Extinction and Inattention: Profound Daniel-Inattention Total Score: 29 Re-Evaluation - Re-Evaluation First Eval Re-Evaluation Time: 14:40 Comment: Patient's has arrived in ED. She reports that patient takes him medications in the morning at around 0800. Second Eval Re-Evaluation Time: 15:45 Comment: Informed patient's and patient of need for transfer, they are agreeable with transfer. Course/Dx - Course Course Of Treatment: Patient is a 78 y/o M BIBA as code gaviria with positive [place]. Code taiwo called at 1406, arrival at 1409, provider at patient's side to evaluate at this time. EMS reports that patient's last known well was 1100 this morning. At around 1345, patient was found by family to be AMS, confused and unable to talk. Right facial droop and right extremity weakness are also reported. notes that patient's baseline is alert and oriented x3 and ambulatory. Patient is diabetic, BG was 237. PMHx of CVA, seizures is denied , PMHx of irregular heartbeat, patient is on Xarelto and is not TPA candidate. Neuro exam showed that patient is alert and confused; GCS 12, NIH 29. Bloodwork was obtained. BRAIN CT IMPRESSION: 1. THERE IS A SMALL AREA OF DECREASED DENSITY IN THE RIGHT PERIVENTRICULAR WHITE MATTER. MOST CONSISTENT WITH AN INFARCT SUBACUTE TO CHRONIC IN DURATION. NO OTHER FOCAL. ABNORMALITIES ARE SEEN. THERE IS NO EVIDENCE FOR HEMORRHAGE. 2. SLIGHTLY LIMITED STUDY DUE TO MOTION ARTIFACT. CXR IMPRESSION: 1. CARDIAC MEGALY UNCHANGED. 2. FINDINGS SUGGESTIVE OF COPD, NO EVIDENCE FOR ACUTE FINDING. EKG showed afib w/ rate of 81 BPM, RBBB. 1423 - Dr. Bates happened to be in ED for another patient, he states brain CT appears negative. 1429 - Dr. Nuñez called to communicate results of brain CT. 1444 - Patient's case was discussed with Dr. Alexis, she recommends. CTA of head/neck IMPRESSION: 1. COMPLETE OCCLUSION OF THE LEFT INTERNAL CAROTID ARTERY JUST BEYOND ITS ORIGIN AT THE. CAROTID BIFURCATION AND THROUGHOUT ITS INTRACRANIAL EXTENT. 2. SLIGHT DECREASED FLOW WITHIN THE LEFT MIDDLE CEREBRAL ARTERY BRANCHES RELATIVE TO THE. RIGHT SIDE. 1540 - Dr. Nuñez communicated results of CTA Head/neck over the phone, transfer process to [facility] was initiated at this time. 1550 - Discussed patient's case with Dr. Alexis once more, Dr. Alexis accepts patient for transfer to [facility]. Patient and patient's are agreeable with transfer. Dx of CVA. - Differential Dx Differential Diagnoses Neuro: Positive: Cerebrovascular Accident, Intracranial Bleed, Transient Ischemic Attack - Diagnoses Provider Diagnoses: CVA (cerebral vascular accident) During the Visit The Following Alert/Code Occurred: Code [place] - 1406 - Physician Notifications Discussed Care Of Patient With: Robert Bates Time Discussed With Above Provider: 14:23 Instructed by Provider To: Other - 1423 - Dr. Bates happened to be in ED for another patient, he states brain CT appears negative. 1429 - Dr. Nuñez called to communicate results of brain CT. 1444 - Patient's case was discussed with Dr. Alexis, she recommends CTA of head/neck. 1540 - Dr. Nuñez communicated results of CTA Head/neck over the phone, transfer process to [facility] was initiated at this time. 1550 - Discussed patient's case with Dr. Alexis once more, Dr. Alexis accepts patient for transfer to [facility]. - Critical Care Time Critical Care Time: 30-74 min - 60 minutes Discharge - Sign-Out/Discharge Documenting (check all that apply): Patient Departure - transfer - Discharge Plan Condition: Fair Disposition: TRANS HIGHER LVL OF CARE FAC Referrals: Adair Han MD [Primary Care Provider] - - Billing Disposition and Condition Condition: FAIR Disposition: Trans Higher Lvl of Care Fac - Attestation Statements Document Initiated by Scribe: Yes Documenting Scribe: Bandar Haji Provider For Whom Carlito is Documenting (Include Credential): Kevin Benz MD Scribe Attestation: Bandar Jimenez scribed for Kevin Benz MD on 07/29/18 at 1623. Scribe Documentation Reviewed: Yes Provider Attestation: The documentation as recorded by the Bandar chavez accurately reflects the service I personally performed and the decisions made by me, Kevin Benz MD
--- NOTE | 2018-07-29 14:34 | RAD ---
INDICATION: Neurologic changes, code maravilla. COMPARISON: There are no relevant prior studies available for comparison. TECHNIQUE: Contiguous axial sections of the brain were obtained from the skull base to the vertex without contrast. The exam is limited due to motion artifact. FINDINGS: The ventricles, cisterns and sulci are enlarged consistent with age-related atrophy. There is a focal area of decreased attenuation in the periventricular white matter adjacent to the body of the right lateral ventricle most consistent with an infarct subacute to chronic in duration. No other focal abnormalities or mass effect are seen. There is no evidence for hemorrhage. No significant focal osseous abnormality is seen. The visualized portion of the paranasal sinuses and mastoid air cells appear clear. The results of this exam were called to the referring clinician at 1428 hours. IMPRESSION: 1. THERE IS A SMALL AREA OF DECREASED DENSITY IN THE RIGHT PERIVENTRICULAR WHITE MATTER MOST CONSISTENT WITH AN INFARCT SUBACUTE TO CHRONIC IN DURATION. NO OTHER FOCAL ABNORMALITIES ARE SEEN. THERE IS NO EVIDENCE FOR HEMORRHAGE. 2. SLIGHTLY LIMITED STUDY DUE TO MOTION ARTIFACT.
[2018-07-29 14:49] LABS: ABS Basophils 0.1 10^3/ul (0-0.2); ABS Eosinophils 0.1 10^3/ul (0-0.6); ABS Lymphocytes 0.9 10^3/ul (1.0-4.8); ABS Monocytes 0.6 10^3/ul (0-0.8); ABS Neutrophils 11.1 10^3/ul (1.5-7.7); ABS Nucleated RBC 0 10^3/ul; Eosinophil % 0.5 % (0-6); Hematocrit 34 % (42-52); Hemoglobin 11.3 g/dl (14.0-18.0); Lymphocyte % 6.9 % (25-47); Mean Corpuscular HGB Conc 33 g/dl (31-36); Mean Corpuscular Hemoglobin 28 pg (27-31); Mean Corpuscular Volume 84 fL (80-94); Mean Platelet Volume 6.7 um3 (7.4-10.4); Nucleated Red Blood Cells % 0; Platelet Count 333 10^3/ul (150-450); Red Blood Count 4.05 10^6/ul (4.00-5.40); Red Cell Distribution Width 16 % (10.5-15); White Blood Count 12.6 10^3/ul (3.5-10.8)
--- NOTE | 2018-07-29 14:52 | RAD ---
INDICATION: CVA. COMPARISON: Comparison is made with a prior study from July 19, 2017. TECHNIQUE: A portable view of the chest was obtained. FINDINGS: The heart is moderately enlarged and unchanged from the prior study. The lungs are hyperinflated and clear. No pleural effusion is seen. IMPRESSION: 1. CARDIAC MEGALY UNCHANGED. 2. FINDINGS SUGGESTIVE OF COPD, NO EVIDENCE FOR ACUTE FINDING.
[2018-07-29 15:04] LABS: INR 1.34 (0.77-1.02)
[2018-07-29 15:07] LABS: EGFR Non-African American 69.7 (>60)
[2018-07-29] MEDS ORDERED: Iodixanol* (CONTRAST) 320 MG/ML 100 ML SDV IV ONE (15:08)
--- NOTE | 2018-07-29 15:50 | RAD ---
INDICATION: Bilateral weakness and confusion, code maravilla. COMPARISON: Comparison is made with a prior CT of the brain of the same day. TECHNIQUE: A CT angiogram of the head and neck was performed following intravenous injection of 80 ml of Visipaque 320 nonionic contrast. Contiguous axial sections were obtained from the thoracic inlet through the skull vertex. Images were reconstructed in the coronal and sagittal planes and in a 3-D volume rendered format. The distal cervical internal carotid artery diameter is used as the denominator for stenosis measurement. FINDINGS: RIGHT CAROTID: The common carotid artery is widely patent. There is moderate calcific plaque present within the carotid bulb and proximal internal carotid artery causing approximately a 40% stenosis. The remaining internal carotid artery appears widely patent. LEFT CAROTID: The common carotid artery appears widely patent. 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 VERTEBRALS: The vertebral arteries appear patent without evidence for high-grade stenosis or occlusion. CTA BRAIN: ANTERIOR CIRCULATION: The anterior cervical arteries appear widely patent. The middle cerebral arteries also appear widely patent. There is slight diffuse decreased flow within the left middle cerebral artery branches compared with the right side. POSTERIOR CIRCULATION: The vertebral, basilar and posterior cerebral arteries appear patent without evidence for high-grade stenosis or occlusion. EVALUATION FOR ANEURYSM: No aneurysm or vascular malformation is seen. NECK: No significant enlarged lymph nodes are seen within the neck. The thyroid, parotid and submandibular glands appear to be within normal limits. LUNG APICES: The lung apices appear clear. SINUSES: The paranasal sinuses and mastoid air cells appear clear. The results of this exam were discussed with the referring clinician. IMPRESSION: 1. COMPLETE OCCLUSION OF THE LEFT INTERNAL CAROTID ARTERY JUST BEYOND ITS ORIGIN AT THE CAROTID BIFURCATION AND THROUGHOUT ITS INTRACRANIAL EXTENT. 2. SLIGHT DECREASED FLOW WITHIN THE LEFT MIDDLE CEREBRAL ARTERY BRANCHES RELATIVE TO THE RIGHT SIDE. CPT II Codes: 3100F
[2018-07-29 16:19] LABS: Urine Appearance Clear; Urine Blood Negative (Negative); Urine Color Yellow; Urine Ketones Negative (Negative); Urine Protein Negative (Negative); Urine Specific Gravity 1.033 (1.010-1.030); Urine Urobilinogen Negative (Negative)
[2018-07-29 17:16] VITALS: BP 134/49
== END 2018-07-29 17:15 | disposition short-term general hospital (02) ==
LOC: ED 14:10
DX: I63.9 Cerebral infarction, unspecified (principal); I48.91 Unspecified atrial fibrillation; I45.10 Unspecified right bundle-branch block; E11.9 Type 2 diabetes mellitus without complications; Z87.891 Personal history of nicotine dependence
CPT/HCPCS: 36415; 70450; 70496; 70498; 71045; 80053; 81003; 85025; 85610; 85730; 93005; 96374; 99285; Q9967